=== PATIENT | male | born 1990 | race African-American/Black ===

== ENCOUNTER 2017-11-23 23:37 | Inpatient (IN) | payer OTHER ==
--- NOTE | 2017-11-24 02:53 | PDOC ---
History of Present Illness - General Chief Complaint: Pain Stated Complaint: ABD PAIN Time Seen by Provider: 11/24/17 02:11 History Source: Patient Exam Limitations: No Limitations - History of Present Illness Travel History: No Initial Comments: 11/24/17 03:12 Best Contact: Pmhx: Hypertension, CRF dialysis: Thursday/Thursday/Thursday, last dialysis 2017 Pshx:N/A Allergies: NKDA 27-year-old male presents to the emergency department complaining of initial 6/ 10 periumbilical abdominal discomfort since approximately 2330 hrs. last night which migrated to right lower quadrant abdominal discomfort radiating to the right flank with nausea but no vomiting. Patient denies fever, chills, chest pain, shortness of breath, urinary symptoms: Frequency/urgency/hesitancy, hematuria. There are no alleviating factors but the pain is exacerbated on touch. Patient denies history of similar symptoms. Pt denies any trauma/fall. Past History - Past Medical History Allergies/Adverse Reactions: Allergies Allergy/AdvReac Type Severity Reaction Status Date / Time No Known Allergies Allergy Verified 11/24/17 00:00 Home Medications: Ambulatory Orders Labetalol HCl [Normodyne -] 100 mg PO BID 11/24/17 - Suicide/Smoking/Psychosocial Hx Smoking History: Never smoked Have you smoked in the past 12 months: No Information on smoking cessation initiated: No Hx Alcohol Use: No Drug/Substance Use Hx: No Review of Systems - Review of Systems Able to Perform ROS?: Yes Comments:: 11/24/17 03:11 CONSTITUTIONAL: Absent: fever, chills, diaphoresis, generalized weakness, malaise, loss of appetite HEENT: Absent: rhinorrhea, nasal congestion, throat pain, throat swelling, difficulty swallowing, mouth swelling, ear pain, eye pain, visual Changes CARDIOVASCULAR: Absent: chest pain, loss of consciousness, palpitations, irregular heart rate, peripheral edema RESPIRATORY: Absent: cough, shortness of breath, dyspnea with exertion, orthopnea, wheezing, stridor, hemoptysis GASTROINTESTINAL: RLQ pain radiating to right flank Absent: abdominal distension, nausea, vomiting, diarrhea, constipation, melena , hematochezia GENITOURINARY: Absent: dysuria, frequency, urgency, hesitancy, hematuria, flank pain, genital pain MUSCULOSKELETAL: Absent: myalgia, arthralgia, joint swelling SKIN: Absent: rash, itching, pallor HEMATOLOGIC/IMMUNOLOGIC: Absent: easy bleeding, easy bruising, lymphadenopathy, frequent infections ENDOCRINE: Absent: unexplained weight gain, unexplained weight loss, heat intolerance, cold intolerance NEUROLOGIC: Absent: headache, focal weakness or paresthesias, dizziness, unsteady gait, seizure, mental status changes, bladder or bowel incontinence PSYCHIATRIC: Absent: anxiety, depression, suicidal or homicidal ideation, hallucinations. Is the patient limited Malaysian proficient: No *Physical Exam - Vital Signs Last Vital Signs Temp Pulse Resp BP Pulse Ox 97.8 F 91 H 18 145/90 97 11/23/17 23:56 11/23/17 23:56 11/23/17 23:56 11/23/17 23:56 11/23/17 23:56 - Physical Exam Comments: 11/24/17 03:11 GENERAL: Well developed, well nourished. Awake and alert. No acute distress. HEENT: Normocephalic, atraumatic. PERRLA, EOMI. No conjunctival pallor. Sclera are non- icteric. Moist mucous membranes. Oropharynx is clear. NECK: Supple. Full ROM. No JVD. Carotid pulses 2+ and symmetric, without bruits. No thyromegaly. No lymphadenopathy. CARDIOVASCULAR: Regular rate and rhythm. No murmurs, rubs, or gallops. Distal pulses are 2+ and symmetric. PULMONARY: No evidence of respiratory distress. Lungs clear to auscultation bilaterally. No wheezing, rales or rhonchi. ABDOMINAL: +RLQ pain Soft. Non-distended. No rebound or guarding. No organomegaly. Normoactive bowel sounds. MUSCULOSKELETAL Normal range of motion at all joints. No bony deformities or tenderness. No CVA tenderness. EXTREMITIES: No cyanosis. No clubbing. No edema. No calf tenderness. SKIN: Warm and dry. Normal capillary refill. No rashes. No jaundice. NEUROLOGICAL: Alert, awake, appropriate. Cranial nerves 2-12 intact. No deficits to light touch and temperature in face, upper extremities and lower extremities. No motor deficits in the in face, upper extremities and lower extremities. Normoreflexic in the upper and lower extremities. Normal speech. Toes are down- going bilaterally. Gait is normal without ataxia. PSYCHIATRIC: Cooperative. Good eye contact. Appropriate mood and affect. ED Treatment Course - LABORATORY CBC & Chemistry Diagram: 11/24/17 03:00 11/24/17 03:00 - RADIOLOGY Radiograph Interpretation: 11/24/17 04:[address] without contrast Impression: Right renal soap capsular hematoma and retroperitoneal hematoma Right nephrolithiasis Complex cystic mass in the left kidney There is a right subcapsular renal hematoma and there is stranding in the perinephric fat as well as the anterior and posterior perinephric spaces. There is a 3 mm stone in the left upper pole calyx there is a 2.5 cm ring calcification to the left kidney Progress Note - Progress Note Progress Note: Called surgery functional tester [id number]: Spoke to Dr. Amaro/Hosptialist Will admit after Surgery consult Signed out to Dr. Alexis *DC/Admit/Observation/Transfer Diagnosis at time of Disposition: Renal stone, Retroperitoneal hematoma - Referrals - Patient Instructions - Post Discharge Activity
[2017-11-24] MEDS ORDERED: SODIUM CHLORIDE 1,000 ML IV STA (02:54)
[2017-11-24] MEDS ORDERED: morphine CARPU-JECT 2 MG/1 ML DISP.SYRIN IVPUSH ONE ×2 (03:10→05:20)
[2017-11-24] MEDS ORDERED: MORPHINE SULFATE 10 MG/1 ML *VIAL ONE ×3 (03:13→14:29)
[2017-11-24 03:21] LABS: EOS % 1.7 % (0-4.5); HEMATOCRIT 33.3 % (35.4-49); HEMOGLOBIN 11.3 GM/dL (11.7-16.9); LYMPH % 5.9 % (8-40); MCH 28.6 pg (25.7-33.7); MEAN CELL VOLUME 84.1 fl (80-96); MEAN PLT VOLUME 8.4 fl (7.5-11.1); NEUT % 83.4 % (42.8-82.8); PLATELET COUNT 229 K/MM3 (134-434); RBC 3.95 M/mm3 (4.00-5.60); RDW 17.2 % (11.9-15.9); WHITE BLOOD COUNT 8.6 K/mm3 (4.0-10.0)
[2017-11-24 04:08] LABS: ALBUMIN 3.9 g/dl (3.4-5.0); ANION GAP 7 (8-16); BILIRUBIN,TOTAL 1.2 mg/dL (0.2-1.0); BLOOD UREA NITROGEN 45 mg/dL (7-18); CALCIUM 9.2 mg/dL (8.5-10.1); CHLORIDE 100 mmol/L (98-107); CO2 32 mmol/L (21-32); GLUCOSE,RANDOM 145 mg/dL (74-106); POTASSIUM 4.4 mmol/L (3.5-5.1); SGOT/AST 21 U/L (15-37); SODIUM 139 mmol/L (136-145); TOT PROT 8.4 g/dl (6.4-8.2)
[2017-11-24 04:09] LABS: CREATININE 10.4 mg/dL (0.7-1.3)
[2017-11-24 04:20] LABS: ALK PHOS 53 U/L (45-117); SGPT/ALT 24 U/L (12-78)
[2017-11-24 06:10] LABS: INR 1.11 (0.82-1.09); PROTHROMBIN TIME (PATIENT) 12.5 SEC (9.98-11.88)
--- NOTE | 2017-11-24 07:20 | PDOC ---
*Physical Exam - Vital Signs Last Vital Signs Temp Pulse Resp BP Pulse Ox 97.8 F 91 H 18 145/90 97 11/23/17 23:56 11/23/17 23:56 11/23/17 23:56 11/23/17 23:56 11/23/17 23:56 ED Treatment Course - LABORATORY CBC & Chemistry Diagram: 11/24/17 03:00 11/24/17 03:00 - ADDITIONAL ORDERS Additional order review: Laboratory Results 11/24/17 11/24/17 11/24/17 05:46 05:46 03:00 PT with INR 12.50 H INR 1.11 Sodium 139 Potassium 4.4 Chloride 100 Carbon Dioxide 32 Anion Gap 7 L BUN 45 H Creatinine 10.4 H* Creat Clearance w eGFR 5.96 Random Glucose 145 H Calcium 9.2 Total Bilirubin 1.2 H AST 21 ALT 24 Alkaline Phosphatase 53 Total Protein 8.4 H Albumin 3.9 Blood Type A POSITIVE Antibody Screen Negative 11/24/17 03:00 RBC 3.95 L MCV 84.1 MCHC 34.0 RDW 17.2 H MPV 8.4 Neutrophils % 83.4 H Lymphocytes % 5.9 L Monocytes % 8.0 Eosinophils % 1.7 Basophils % 1.0 - Medications Given in the ED: ED Medications Discontinued Medications Generic Name Dose Route Start Last Admin Trade Name Freq PRN Reason Stop Dose Admin Sodium Chloride 1,000 mls @ 1,000 mls/hr 11/24/17 02:54 11/24/17 03:12 Normal Saline - IV 11/24/17 03:53 1,000 mls/hr ASDIR STA Administration Morphine Sulfate 2 mg 11/24/17 03:10 11/24/17 03:17 Morphine Injection - IVPUSH 11/24/17 03:11 2 mg ONCE ONE Administration Morphine Sulfate 2 mg 11/24/17 05:20 11/24/17 05:23 Morphine Injection - IVPUSH 11/24/17 05:21 2 mg ONCE ONE Administration Medical Decision Making - Medical Decision Making 11/24/17 07:[address] Figueredo around 6:30am who will review the chart and call back. 11/24/17 07:19 Patient signed out to Dr. Box *DC/Admit/Observation/Transfer Diagnosis at time of Disposition: Renal stone, Retroperitoneal hematoma - Referrals - Patient Instructions - Post Discharge Activity
--- NOTE | 2017-11-24 08:26 | PDOC ---
*Physical Exam - Vital Signs Last Vital Signs Temp Pulse Resp BP Pulse Ox 97.8 F 91 H 18 145/90 97 11/23/17 23:56 11/23/17 23:56 11/23/17 23:56 11/23/17 23:56 11/23/17 23:56 - Physical Exam Comments: 11/24/17 08:21 General Appearance: Nourished. In Mild Apparent Distress HEENT: No Pharyngeal Erythema, Tonsillar Exudate, Tonsillar Erythema Neck: No Cervical Lymphadenopathy Respiratory/Chest: Lungs Clear, Normal Breath Sounds. No Crackles, Rales, Rhonchi, Wheezing Cardiovascular: Regular Rhythm, Regular Rate. No Murmur, Gallops, Rubs Gastrointestinal/Abdominal: Normal Bowel Sounds, Soft. Mild R lower quadrant tenderness to palpation. No Guarding, Rebound, Musculoskeletal: R CVA Tenderness Extremity: Normal Capillary Refill Integumentary: Normal Color, Dry, Warm Neurologic: Fully Oriented, Alert, Normal Mood/Affect, Normal Response, ED Treatment Course - LABORATORY CBC & Chemistry Diagram: 11/24/17 03:00 11/24/17 03:00 - ADDITIONAL ORDERS Additional order review: Laboratory Results 11/24/17 11/24/17 11/24/17 05:46 05:46 03:00 PT with INR 12.50 H INR 1.11 Sodium 139 Potassium 4.4 Chloride 100 Carbon Dioxide 32 Anion Gap 7 L BUN 45 H Creatinine 10.4 H* Creat Clearance w eGFR 5.96 Random Glucose 145 H Calcium 9.2 Total Bilirubin 1.2 H AST 21 ALT 24 Alkaline Phosphatase 53 Total Protein 8.4 H Albumin 3.9 Blood Type A POSITIVE Antibody Screen Negative 11/24/17 03:00 RBC 3.95 L MCV 84.1 MCHC 34.0 RDW 17.2 H MPV 8.4 Neutrophils % 83.4 H Lymphocytes % 5.9 L Monocytes % 8.0 Eosinophils % 1.7 Basophils % 1.0 - Medications Given in the ED: ED Medications Discontinued Medications Generic Name Dose Route Start Last Admin Trade Name Freq PRN Reason Stop Dose Admin Sodium Chloride 1,000 mls @ 1,000 mls/hr 11/24/17 02:54 11/24/17 03:12 Normal Saline - IV 11/24/17 03:53 1,000 mls/hr ASDIR STA Administration Morphine Sulfate 2 mg 11/24/17 03:10 04/10/18 03:17 Morphine Injection - IVPUSH 11/24/17 03:11 2 mg ONCE ONE Administration Morphine Sulfate 2 mg 11/24/17 05:20 11/24/17 05:23 Morphine Injection - IVPUSH 11/24/17 05:21 2 mg ONCE ONE Administration Progress Note - Progress Note Progress Note: The patient is a 27 year old male on dialysis M/W/F who presents for evaluation of acute onset abdominal pain found to have a right renal subcapsular hematoma and retroperitoneal hematoma on CT scan. Surgery is aware. Patient is pending Surgery Eval. Medical Decision Making - Medical Decision Making 11/24/17 08:26 We discussed the case with Dr. Figueredo with surgery who agrees with admitting the patient although no surgical intervention at this time. We discussed the case with the hospitalist team who accepted the patient for admission. *DC/Admit/Observation/Transfer Diagnosis at time of Disposition: Renal stone, Retroperitoneal hematoma - Discharge Dispostion Condition at time of disposition: Stable Admit: Yes - Referrals - Patient Instructions - Post Discharge Activity
--- NOTE | 2017-11-24 08:30 | CONSULT ---
Consult Consult Specialty:: Surgery Reason for Consultation:: Retroperitoneal hematoma - History of Present Illness Chief Complaint: Abdominal /back pain History of Present Illness: 27 male presents with abdominal/back pain Sudden onset Mild nausea No vomiting Denies fevers Denies recent trauma, anticoagulant use or use of any blood thinners Right renal subcapsular hematoma and retroperitoneal hematoma on CT H/H Cr 10 - History Source History Provided By: Patient Limitations to Obtaining History: No Limitations - Alcohol/Substance Use Hx Alcohol Use: No - Smoking History Smoking history: Never smoked Have you smoked in the past 12 months: No Home Medications - Allergies Allergies/Adverse Reactions: Allergies Allergy/AdvReac Type Severity Reaction Status Date / Time No Known Allergies Allergy Verified 11/24/17 00:00 - Home Medications Home Medications: Ambulatory Orders Labetalol HCl [Normodyne -] 100 mg PO BID 11/24/17 Family Disease History - Family Disease History Family History: Denies Review of Systems - Review of Systems Constitutional: denies: Fever HENT: reports: No Symptoms Neck: reports: No Symptoms Respiratory: denies: Cough Gastrointestinal: reports: Abdominal Pain, Vomiting Genitourinary: reports: Flank Pain Neurological: denies: Change in LOC Pain Intensity: 5 Physical Exam Vital Signs: Vital Signs Temperature 97.8 F 11/23/17 23:56 Pulse Rate 91 H 11/23/17 23:56 Respiratory Rate 18 11/23/17 23:56 Blood Pressure 145/90 11/23/17 23:56 O2 Sat by Pulse Oximetry (%) 97 11/23/17 23:56 Eyes: Yes: WNL HENT: Yes: WNL Neck: Yes: Supple Cardiovascular: Yes: Regular Rate and Rhythm Respiratory: Yes: CTA Bilaterally Gastrointestinal: Yes: Soft, Abdomen, Obese, Tenderness (Right sided tenderness/ right flank tenderness). No: Tenderness, Rebound Renal/: Yes: CVA Tenderness - Right Neurological: Yes: Alert, Oriented Labs: CBC, BMP 11/24/17 03:00 11/24/17 03:00 Imaging - Results Cat Scan: Image Reviewed Problem List - Problems (1) Renal hematoma Code(s): S37.019A - MINOR CONTUSION OF UNSPECIFIED KIDNEY, INITIAL ENCOUNTER Qualifiers: Laterality: right (2) Retroperitoneal hematoma Code(s): K66.1 - HEMOPERITONEUM Assessment/Plan Right renal hematoma and retroperitoneal hematoma Hemodynamically stable Hemoglobin 11 Hematocrit 33 Hemoglobin/Hematocrit every 4 hours Hold all blood thinners/anticoagulants Urology consult for renal hematoma Interventional radiology consult for possible embolization if worsens
[2017-11-24] MEDS ORDERED: morphine SULFATE 4 MG/ML VIAL ONE (09:40)
[2017-11-24] MEDS ORDERED: LABETALOL HCL 100 MG TABLET (FP) ONE (09:41)
[2017-11-24] MEDS: LABETALOL HCL 100 MG TABLET (FP) PO SCH ×3 (09:50→22:33)
[2017-11-24] MEDS: morphine SULFATE 4 MG/ML VIAL IVPUSH PRN ×3 (09:51→18:23)
[2017-11-24 10:22] LABS: BASO % 0.6 % (0-2.0); EOS % 0.3 % (0-4.5); HEMATOCRIT 29.5 % (35.4-49); HEMOGLOBIN 9.8 GM/dL (11.7-16.9); MCH 28.2 pg (25.7-33.7); MCHC 33.2 g/dl (32.0-35.9); MEAN PLT VOLUME 8.9 fl (7.5-11.1); MONO % 7.5 % (3.8-10.2); NEUT % 86.6 % (42.8-82.8); PLATELET COUNT 243 K/MM3 (134-434); RBC 3.47 M/mm3 (4.00-5.60); RDW 17.1 % (11.9-15.9); WHITE BLOOD COUNT 10.1 K/mm3 (4.0-10.0)
--- NOTE | 2017-11-24 11:05 | HP ---
CHIEF COMPLAINT: right flank pain PCP: none HISTORY OF PRESENT ILLNESS: This is a 27 year old male with PMHx of ESRD (on HD at [facility] M,W,F), HTN, who presented to the ED with right flank pain radiating around his right side to his umbilical area, nausea, one episode of vomiting. The patient states the pain began last night and is sharp in nature. He denies any trauma, falls. He denies any fever, chills, chest pain, shortness of breath. ER course was notable for: (1) CT/spiral renal stone: Hyperdense fluid and inflammatory changes throughout the right perinephric space consistent with acute hemorrhage. There may be intrarenal hemorrhage present as well. 3mm nonobstructing right renal calculus. Mildly atrophic left kidney with calcified lower pole mass and mild dilatation of the upper collecting system. No additional evidence of acute pathology within the abdomen or pelvis (2) Temp 97.8, pulse 91, BP 145/90, resp 18, O2 97% on RA (3) Hgb 11.3-> 9.8 (4) Cr 10.4 Recent Travel: denies PAST MEDICAL HISTORY: as above PAST SURGICAL HISTORY: denies Social History: Smoking: denies Alcohol: denies Drugs: denies Family History: Allergies No Known Allergies Allergy (Verified 11/24/17 00:00) HOME MEDICATIONS: Home Medications Medication Instructions Recorded Labetalol HCl [Normodyne -] 100 mg PO BID 11/24/17 REVIEW OF SYSTEMS CONSTITUTIONAL: Absent: fever, chills, diaphoresis, generalized weakness, malaise, loss of appetite, weight change HEENT: Absent: rhinorrhea, nasal congestion, throat pain, throat swelling, difficulty swallowing, mouth swelling, ear pain, eye pain, visual changes CARDIOVASCULAR: Absent: chest pain, syncope, palpitations, irregular heart rate, lightheadedness , peripheral edema RESPIRATORY: Absent: cough, shortness of breath, dyspnea with exertion, orthopnea, wheezing, stridor, hemoptysis GASTROINTESTINAL: Right flank pain radiating around to the umbilicus with nausea and one episode of vomiting. Absent: abdominal distension, diarrhea, constipation, melena, hematochezia GENITOURINARY: Right flank pain Absent: genital pain MUSCULOSKELETAL: Absent: myalgia, arthralgia, joint swelling, back pain, neck pain SKIN: Absent: rash, itching, pallor HEMATOLOGIC/IMMUNOLOGIC: Absent: easy bleeding, easy bruising, lymphadenopathy, frequent infections ENDOCRINE: Absent: unexplained weight gain, unexplained weight loss, heat intolerance, cold intolerance NEUROLOGIC: Absent: headache, focal weakness or paresthesias, dizziness, unsteady gait, seizure, mental status changes, bladder or bowel incontinence PSYCHIATRIC: Absent: anxiety, depression, suicidal or homicidal ideation, hallucinations. PHYSICAL EXAMINATION Vital Signs - 24 hr 11/23/17 11/24/17 23:56 10:13 Temperature 97.8 F Pulse Rate 91 H 95 H Respiratory 18 Rate Blood Pressure 145/90 189/119 O2 Sat by Pulse 97 Oximetry (%) GENERAL: Awake, alert, and fully oriented, in no acute distress. HEAD: Normal with no signs of trauma. EYES: Pupils equal, round and reactive to light, extraocular movements intact, sclera anicteric, conjunctiva clear. No lid lag. EARS, NOSE, THROAT: Ears normal, nares patent, oropharynx clear without exudates. Moist mucous membranes. NECK: Normal range of motion, supple without lymphadenopathy, JVD, or masses. LUNGS: Breath sounds equal, clear to auscultation bilaterally. No wheezes, and no crackles. No accessory muscle use. HEART: Regular rate and rhythm, normal S1 and S2 without murmur, rub or gallop. ABDOMEN: Soft, nontender, not distended, normoactive bowel sounds, no guarding, no rebound, no masses. No hepatomegaly or splenomegaly. MUSCULOSKELETAL: Normal range of motion at all joints. No bony deformities or tenderness. UPPER EXTREMITIES: Left arm AV fistula, + thrill, + bruit. 2+ pulses, warm, well -perfused. No cyanosis. No clubbing. No peripheral edema. LOWER EXTREMITIES: 2+ pulses, warm, well-perfused. No calf tenderness. No peripheral edema. NEUROLOGICAL: Cranial nerves II-XII intact. Normal speech. Gait not observed PSYCHIATRIC: Cooperative. Good eye contact. Appropriate mood and affect. SKIN: Warm, dry, normal turgor, no rashes or lesions noted, normal capillary refill. Laboratory Results - last 24 hr 11/24/17 11/24/17 11/24/17 03:00 03:00 05:46 WBC 8.6 RBC 3.95 L Hgb 11.3 L Hct 33.3 L MCV 84.1 MCH 28.6 MCHC 34.0 RDW 17.2 H Plt Count 229 MPV 8.4 Neutrophils % 83.4 H Lymphocytes % 5.9 L Monocytes % 8.0 Eosinophils % 1.7 Basophils % 1.0 PT with INR 12.50 H INR 1.11 Sodium 139 Potassium 4.4 Chloride 100 Carbon Dioxide 32 Anion Gap 7 L BUN 45 H Creatinine 10.4 H* Creat Clearance w eGFR 5.96 Random Glucose 145 H Calcium 9.2 Total Bilirubin 1.2 H AST 21 ALT 24 Alkaline Phosphatase 53 Total Protein 8.4 H Albumin 3.9 Blood Type Antibody Screen 11/24/17 11/24/17 05:46 09:41 WBC 10.1 H RBC 3.47 L Hgb 9.8 L D Hct 29.5 L MCV 85.0 MCH 28.2 MCHC 33.2 RDW 17.1 H Plt Count 243 MPV 8.9 Neutrophils % 86.6 H Lymphocytes % 5.0 L Monocytes % 7.5 Eosinophils % 0.3 D Basophils % 0.6 PT with INR INR Sodium Potassium Chloride Carbon Dioxide Anion Gap BUN Creatinine Creat Clearance w eGFR Random Glucose Calcium Total Bilirubin AST ALT Alkaline Phosphatase Total Protein Albumin Blood Type A POSITIVE Antibody Screen Negative Assessment: This is a 27 year old male with PMHx of ESRD (on HD at [facility] M ,,), HTN, who presented to the ED with right flank pain radiating around his right side to his umbilical area, nausea, one episode of vomiting. Plan: 1) Acute right perinephric hemorrhage - Possible intrarenal hemorrhage as well - Discussed with Dr. Franklin; for CTA renal arteries, arterial and venous phase - Dr. Franklin to evaluate the patient, discussed CT results, he is recommending IR procedure. He will speak to Dr. Franklin directly - Dr. Nicole accepted the patient for ICU care - Discussed with Dr. Guerra - H/H trending down, continue q4h CBC, transfuse if Hgb <8 - Pain management - Appreciate surgery consult: discussed with Dr. Figueredo, no surgical intervention at this time 2) ESRD - HD M,W, - F/u nephrology consult 3) F/E/N: - NPO 4) Prophylaxis: - Hold all chemical DVT prophylaxis 2/2 acute bleed 5) Dispo: - Requires ICU care CODE STATUS: FULL CODE Visit type - Emergency Visit Emergency Visit: Yes ED Registration Date: 11/24/17 Care time: The patient presented to the Emergency Department on the above date and was hospitalized for further evaluation of their emergent condition. - New Patient This patient is new to me today: Yes Date on this admission: 11/24/17 - Critical Care Critical Care patient: Yes Total Critical Care Time (in minutes): 65 Critical Care Statement: The care of this patient involved high complexity decision making to prevent further life threatening deterioration of the patient 's condition and/or to evaluate & treat vital organ system(s) failure or risk of failure. Hospitalist Screening - Colonoscopy Questionnaire Colonoscopy Questionnaire: Colonoscopy Questionnaire - Patient: 50 - 75 years old and never had a screening colonoscopy: No History of colon or rectal polyps, or CA: Unknown History of IBD, Crohn's disease or UC: Unknown History of abdominal radiation therapy as a child: Unknown - Relative: 1 with colon or rectal CA, or polyps at age 60 or younger: Unknown Colon or rectal CA diagnosed at age 45 or younger: Unknown Multiple relatives with colon or rectal CA: Unknown - Outcome: Screening Result: Negative Screen
[2017-11-24 12:50] LABS: BASO % 0.7 % (0-2.0); EOS % 0.1 % (0-4.5); HEMATOCRIT 27.8 % (35.4-49); HEMOGLOBIN 9.4 GM/dL (11.7-16.9); MCH 28.5 pg (25.7-33.7); MCHC 33.7 g/dl (32.0-35.9); MEAN CELL VOLUME 84.7 fl (80-96); MEAN PLT VOLUME 8.5 fl (7.5-11.1); MONO % 9.6 % (3.8-10.2); NEUT % 85.6 % (42.8-82.8); PLATELET COUNT 210 K/MM3 (134-434); RBC 3.29 M/mm3 (4.00-5.60); RDW 17.5 % (11.9-15.9); WHITE BLOOD COUNT 10.5 K/mm3 (4.0-10.0)
[2017-11-24 13:28] LABS: ALBUMIN 3.7 g/dl (3.4-5.0); ANION GAP 14 (8-16); BLOOD UREA NITROGEN 52 mg/dL (7-18); CALCIUM 9.2 mg/dL (8.5-10.1); CHLORIDE 98 mmol/L (98-107); CO2 26 mmol/L (21-32); GLUCOSE,RANDOM 118 mg/dL (74-106); POTASSIUM 5.4 mmol/L (3.5-5.1); SGOT/AST 16 U/L (15-37); SGPT/ALT 22 U/L (12-78); SODIUM 138 mmol/L (136-145)
[2017-11-24 13:35] LABS: ALK PHOS 49 U/L (45-117); BILIRUBIN,TOTAL 1.4 mg/dL (0.2-1.0); TOT PROT 7.9 g/dl (6.4-8.2)
[2017-11-24] MEDS ORDERED: ONDANSETRON 4 MG/2 ML VIAL IVPUSH ONE (13:37)
[2017-11-24 13:47] LABS: CREATININE 11.4 mg/dL (0.7-1.3)
--- NOTE | 2017-11-24 14:30 | EKG ---
Test Reason : Blood Pressure : / mmHG Vent. Rate : 102 BPM Atrial Rate : 102 BPM P-R Int : 188 ms QRS Dur : 092 ms QT Int : 356 ms P-R-T Axes : 035 -37 079 degrees QTc Int : 463 ms SINUS TACHYCARDIA POSSIBLE LEFT ATRIAL ENLARGEMENT LEFT AXIS DEVIATION INCOMPLETE RIGHT BUNDLE BRANCH BLOCK LEFT VENTRICULAR HYPERTROPHY ABNORMAL ECG NO PREVIOUS ECGS AVAILABLE Confirmed by MD Alarcon Daniel ([id number]) on 11/24/2017 2:30:07 PM Referred By: Confirmed By:Anthony Alarcon MD
[2017-11-24 15:22] VITALS: BMI 39.6
--- NOTE | 2017-11-24 16:00 | CONSULT ---
Consult Consult Specialty:: Nephrology Reason for Consultation:: ESRD - History of Present Illness Chief Complaint: abdominal and back pain History of Present Illness: Pt is a 27 year old male with pmhx of ESRD and HTN who presents to the ER with abdominal discomfort and pain. He feels the pain radiate to his right flank and back. He has been on HD for over 5 years. He says that he did have a kidney biopsy when starting HD however a cause of the renal failure was not identified. He was taken for st scan and was found to have a right perinephric hemmorhage. He is now being admitted to the ICU. He was last dialyuzed yesterday. - History Source History Provided By: Patient, Medical Record - Past Medical History Cardio/Vascular: Yes: HTN Renal/: Yes: Renal Failure, Hemodialysis - Past Surgical History Past Surgical History: Yes: AV Fistula/Graft - Alcohol/Substance Use Hx Alcohol Use: No - Smoking History Smoking history: Never smoked Have you smoked in the past 12 months: No Home Medications - Allergies Allergies/Adverse Reactions: Allergies Allergy/AdvReac Type Severity Reaction Status Date / Time No Known Allergies Allergy Verified 11/24/17 00:00 - Home Medications Home Medications: Ambulatory Orders Labetalol HCl [Normodyne -] 100 mg PO BID 11/24/17 Family Disease History - Family Disease History Family History: Denies Review of Systems - Review of Systems Constitutional: reports: Malaise Eyes: reports: No Symptoms HENT: reports: No Symptoms Neck: reports: No Symptoms Cardiovascular: reports: No Symptoms Respiratory: reports: No Symptoms Gastrointestinal: reports: Abdominal Pain Genitourinary: reports: Flank Pain Musculoskeletal: reports: No Symptoms Integumentary: reports: No Symptoms Neurological: reports: No Symptoms Endocrine: reports: No Symptoms Hematology/Lymphatic: reports: No Symptoms Psychiatric: reports: No Symptoms Physical Exam Vital Signs: Vital Signs Temperature 98.2 F 11/24/17 12:22 Pulse Rate 92 H 11/24/17 15:19 Respiratory Rate 18 11/24/17 15:19 Blood Pressure 186/118 11/24/17 15:19 O2 Sat by Pulse Oximetry (%) 100 11/24/17 15:14 Constitutional: Yes: Calm Eyes: Yes: Conjunctiva Clear HENT: Yes: Atraumatic Neck: Yes: Supple Cardiovascular: Yes: S1, S2 Respiratory: Yes: CTA Bilaterally Gastrointestinal: Yes: Soft, Abdomen, Obese Renal/: Yes: WNL Musculoskeletal: Yes: WNL Edema: No Neurological: Yes: Oriented Psychiatric: Yes: Oriented Labs: Laboratory Tests 11/24/17 03:00 Sodium 139 Potassium 4.4 Chloride 100 Carbon Dioxide 32 Anion Gap 7 L BUN 45 H Creatinine 10.4 H* Imaging - Results Cat Scan: Report Reviewed Problem List - Problems (1) ESRD (end stage renal disease) Code(s): N18.6 - END STAGE RENAL DISEASE (2) HTN (hypertension) Code(s): I10 - ESSENTIAL (PRIMARY) HYPERTENSION (3) Renal hematoma Code(s): S37.019A - MINOR CONTUSION OF UNSPECIFIED KIDNEY, INITIAL ENCOUNTER Qualifiers: Laterality: right (4) Retroperitoneal hematoma Code(s): K66.1 - HEMOPERITONEUM Assessment/Plan Current Medications Generic Name Dose Route Start Last Admin Trade Name Freq PRN Reason Stop Dose Admin Chlorhexidine Gluconate 1 applic 11/24/17 22:00 Hibiclens For Decolonization - TP HS PAMELA Labetalol HCl 100 mg 11/24/17 10:00 11/24/17 10:13 Normodyne - PO Not Given BID PAMELA Morphine Sulfate 2 mg 11/24/17 09:30 11/24/17 14:26 Morphine Sulfate IVPUSH 2 mg Q4H PRN Administration PAIN LEVEL 7 - 10 Mupirocin 1 applic 11/24/17 22:00 Bactroban Ointment (For Decolonization) - NS 11/29/17 21:59 BID PAMELA Impression 1. ESRD 2. HTN 3. right subcapsular perinephric hematoma 4. anemia acute 5. obesity Plan - called and discussed with urology and with IR. They recommend to continue monitoring the hg. Admit pt to ICU and monitor closely. - next scheduled HD is tomorrow - will give DDAVP - pt is also receiving platelets - will likely dialyze in am - called and discussed with ICU team - pain control - will need better BP control
[2017-11-24] MEDS ORDERED: DESMOPRESSIN ACETATE 4 MCG/ML AMP IVPB ONE (16:35)
--- NOTE | 2017-11-24 16:39 | PN ---
Teaching Attending Note Name of Resident: Alondra Hillman ATTENDING PHYSICIAN STATEMENT I saw and evaluated the patient. I reviewed the resident's note and discussed the case with the resident. I agree with the resident's findings and plan as documented. SUBJECTIVE: Pt seen and examined in the ICU. Briefly, 27yo male with h/o HTN, ESRD on HD via LUE AVF x 6 years who presents with RLQ pain radiating to the back. Found to have a right subcapsular hematoma extending into the retroperitoneal space. 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 No fevers or chills. No reported trauma. States blood pressure is normally controlled with SBP 140s. Compliant with HD sessions (MWF.) Medical care is at [facility]. OBJECTIVE: Last Vital Signs Temp Pulse Resp BP Pulse Ox 98.2 F 104 H 18 187/102 100 11/24/17 12:22 11/24/17 16:00 11/24/17 16:00 11/24/17 16:00 11/24/17 15:14 Intake & Output 11/21/17 11/22/17 11/23/17 11/24/17 23:59 23:59 23:59 23:59 Weight 81.647 kg 140 kg Gen: uncomfortable with movements Heart: tachycardic, regular Lung: poor effort due to pain Abd: soft, TTP RLQ, flank Ext: no edema, LUE fistula CBC, BMP 11/24/17 12:39 11/24/17 12:39 INR, PTT INR 1.11 (0.82-1.09) 11/24/17 05:46 Active Medications Chlorhexidine Gluconate (Hibiclens For Decolonization -) 1 applic TP HS PAMELA Labetalol HCl (Normodyne -) 100 mg PO BID PAMELA Last Admin: 11/24/17 10:13 Dose: Not Given Morphine Sulfate (Morphine Sulfate) 2 mg IVPUSH Q4H PRN PRN Reason: PAIN LEVEL 7 - 10 Last Admin: 11/24/17 14:26 Dose: 2 mg Mupirocin (Bactroban Ointment (For Decolonization) -) 1 applic NS BID PAMELA Stop: 11/29/17 21:59 ASSESSMENT AND PLAN: Renal Hemorrhage Hypertensive Urgency ESRD on HD Hyperkalemia - pain control - BP control with labetalol IVP and PO - transfuse platelets - dDAVP - HD per renal - monitor lytes - urology evaluation - will likely need left sided coil embolization as well when stable - mechanical DVT prophylaxis - ICU monitoring critical care time spent in reviewing chart, evaluating patient and formulating plan 35 min
[2017-11-24] MEDS ORDERED: SODIUM CHLORIDE IVPB ONE (17:00)
[2017-11-24] MEDS ORDERED: DESMOPRESSIN ACETATE IVPB ONE (17:00)
[2017-11-24] MEDS ORDERED: SODIUM POLYSTYRENE SULFONATE 15 GM/60 ML BOTTLE PO ONE (17:26)
--- NOTE | 2017-11-24 17:37 | CONSULT ---
Consultation: HISTORY OF PRESENT ILLNESS: 27M with PMH of htn and ESRD (HD MWF x 6 yrs), presents with sudden onset sharp Right flank pain radiating from RLQ to back. Pt was sitting eating dinner at his sister's place when pain started. Pt normally receives medical care at [facility], but came to [facility] 2/[address] sister's place. Pain is exacerbated with movement/position change, and controlled with Morphine. Found on CTA to have Right subcapsular hematoma extending into the retroperitoneal space. Pt reports making urine twice daily, and no change in UOP. Pt denies trauma, fever, chills, chest pain, sob. REVIEW OF SYSTEMS: CONSTITUTIONAL: Absent: fever, chills, diaphoresis, generalized weakness HEENT: Absent: rhinorrhea, nasal congestion, throat pain, ear pain, eye pain, visual changes CARDIOVASCULAR: Absent: chest pain, syncope, palpitations, irregular heart rate RESPIRATORY: Absent: cough, shortness of breath, wheezing, stridor, hemoptysis GASTROINTESTINAL: RLQ pain Absent: abdominal distension, nausea, vomiting, diarrhea, constipation GENITOURINARY: Right flank pain Absent: dysuria MUSCULOSKELETAL: Absent: myalgia, arthralgia, joint swelling SKIN: Absent: rash, itching, pallor HEMATOLOGIC/IMMUNOLOGIC: Absent: easy bleeding, easy bruising, lymphadenopathy ENDOCRINE: Absent: unexplained weight gain, unexplained weight loss, heat intolerance, cold intolerance NEUROLOGIC: Absent: headache, focal weakness or paresthesias, dizziness PSYCHIATRIC: Absent: anxiety, depression, suicidal or homicidal ideation, hallucinations. PHYSICAL EXAMINATION Vital Signs - 24 hr 11/23/17 11/24/17 11/24/17 23:56 10:13 11:15 Temperature 97.8 F Pulse Rate 91 H 95 H 94 H Pulse Rate [ Apical] Respiratory 18 Rate Blood Pressure 145/90 189/119 175/98 Blood Pressure [Right Arm] O2 Sat by Pulse 97 Oximetry (%) 11/24/17 11/24/17 11/24/17 12:22 15:08 15:14 Temperature 98.2 F Pulse Rate 104 H Pulse Rate [ 101 H Apical] Respiratory 20 18 Rate Blood Pressure 186/118 Blood Pressure 174/104 [Right Arm] O2 Sat by Pulse 98 100 Oximetry (%) 11/24/17 11/24/17 15:19 16:00 Temperature Pulse Rate 92 H 104 H Pulse Rate [ Apical] Respiratory 18 18 Rate Blood Pressure 186/118 187/102 Blood Pressure [Right Arm] O2 Sat by Pulse Oximetry (%) GENERAL: Awake, alert, and fully oriented, in no acute distress. HEAD: Normal with no signs of trauma. EYES: Extraocular movements intact, sclera anicteric, conjunctiva clear. No lid lag. NECK: Normal range of motion, supple without lymphadenopathy, JVD, or masses. LUNGS: Poor inspiratory effort 2/2 pain. No accessory muscle use. HEART: Regular rate and rhythm, normal +S1/S2. ABDOMEN: Tender to palpation of RLQ and Right flank, soft, not distended. UPPER EXTREMITIES: Left UE fistula LOWER EXTREMITIES: Warm, well-perfused. No calf tenderness. No peripheral edema. NEUROLOGICAL: Cranial nerves II-XII grossly intact. Normal speech. PSYCHIATRIC: Cooperative. Good eye contact. Appropriate mood and affect. SKIN: Warm, dry, normal turgor, no rashes or lesions noted. Laboratory Results - last 24 hr 11/24/17 11/24/17 11/24/17 03:00 03:00 05:46 WBC 8.6 RBC 3.95 L Hgb 11.3 L Hct 33.3 L MCV 84.1 MCH 28.6 MCHC 34.0 RDW 17.2 H Plt Count 229 MPV 8.4 Neutrophils % 83.4 H Lymphocytes % 5.9 L Monocytes % 8.0 Eosinophils % 1.7 Basophils % 1.0 PT with INR 12.50 H INR 1.11 Sodium 139 Potassium 4.4 Chloride 100 Carbon Dioxide 32 Anion Gap 7 L BUN 45 H Creatinine 10.4 H* Creat Clearance w eGFR 5.96 Random Glucose 145 H Calcium 9.2 Total Bilirubin 1.2 H AST 21 ALT 24 Alkaline Phosphatase 53 Total Protein 8.4 H Albumin 3.9 Blood Type Antibody Screen 11/24/17 11/24/17 11/24/17 05:46 09:41 12:39 WBC 10.1 H 10.5 H RBC 3.47 L 3.29 L Hgb 9.8 L D 9.4 L Hct 29.5 L 27.8 L MCV 85.0 84.7 MCH 28.2 28.5 MCHC 33.2 33.7 RDW 17.1 H 17.5 H Plt Count 243 210 MPV 8.9 8.5 Neutrophils % 86.6 H 85.6 H Lymphocytes % 5.0 L 4.0 L Monocytes % 7.5 9.6 Eosinophils % 0.3 D 0.1 Basophils % 0.6 0.7 PT with INR INR Sodium Potassium Chloride Carbon Dioxide Anion Gap BUN Creatinine Creat Clearance w eGFR Random Glucose Calcium Total Bilirubin AST ALT Alkaline Phosphatase Total Protein Albumin Blood Type A POSITIVE Antibody Screen Negative 11/24/17 12:39 WBC RBC Hgb Hct MCV MCH MCHC RDW Plt Count MPV Neutrophils % Lymphocytes % Monocytes % Eosinophils % Basophils % PT with INR INR Sodium 138 Potassium 5.4 H D Chloride 98 Carbon Dioxide 26 Anion Gap 14 BUN 52 H Creatinine 11.4 H* Creat Clearance w eGFR 5.37 Random Glucose 118 H Calcium 9.2 Total Bilirubin 1.4 H AST 16 D ALT 22 Alkaline Phosphatase 49 Total Protein 7.9 Albumin 3.7 Blood Type Antibody Screen Active Medications Generic Name Dose Route Start Last Admin Trade Name Freq PRN Reason Stop Dose Admin Chlorhexidine Gluconate 1 applic 11/24/17 22:00 Hibiclens For Decolonization - TP HS [facility] Desmopressin Acetate 42 mcg 11/24/17 16:35 Ddavp Injection - IVPB 11/24/17 16:36 ONCE ONE Labetalol HCl 100 mg 11/24/17 10:00 11/24/17 10:13 Normodyne - PO Not Given BID [facility] Morphine Sulfate 2 mg 11/24/17 09:30 11/24/17 14:26 Morphine Sulfate IVPUSH 2 mg Q4H PRN Administration PAIN LEVEL 7 - 10 Mupirocin 1 applic 11/24/17 22:00 Bactroban Ointment (For Decolonization) - NS 11/29/17 21:59 BID [facility] IMAGIN11/24/17 CT Ab/Pel -> 1. Hyperdense fluid and inflammatory changes throughout the right perinephric space consistent with acute hemorrhage. There may be intrarenal hemorrhage present as well. 2. 3 mm nonobstructing right renal calculus. 3. Mildly atrophic left kidney with rim calcified lower pole mass and mild dilatation of the upper collecting system. 11/24/17 CTA -> 1. No central right renal artery aneurysm. Approximately 8.5 x 7.0 x 11.5 cm large RIGHT subcapsular perinephric hematoma compressing the right kidney with extracapsular extension of hemorrhage into the retroperitoneum has slightly increased since the CT performed earlier the same day (previously measured 7.8 x 6.3 x 11.0 cm in similar projections). Small blush of venous contrast along the inferior aspect of the right kidney is of indeterminant origin. 2. Approximately 2.3 x 2.2 cm peripherally calcified aneurysm in the left renal lower pole supplied by an accessory left renal artery. 3. Symmetrically atrophic kidneys with numerous cysts which could be the sequela of chronic dialysis. ASSESSMENT/PLAN: 27M with PMH of htn and ESRD (HD MWF x 6 yrs), presents with sudden onset sharp Right flank pain radiating from RLQ to back, admitted to ICU for renal hemorrhage. # acute Right renal hemorrhage - IR Consult for embolization/management - Urology recs appreciated: rec IR procedure. Dr. Franklin and Dr. Penn discussed case. - pain control with Morphine prn - 2 U platelets ordered - DDAVP 0.3mcg/kg ordered - monitor CBC - transfuse for Hgb < 8 - Surgery (Dr. Figueredo) recs appreciated: no surgical intervention at this time # hypertensive urgency - Labetalol 10mg IVpush now - continue home med of Labetalol # ESRD - Nephrology (Dr. Guerra) on board - HD scheduled for tomorrow per Dr. Guerra # FEN - Fluids: s/p 1 L NS bolus - Electrolytes: mild hyperkalemia noted, continue to monitor - Nutrition: npo for possible procedure, ice chips OK # Prophylaxis - DVT ppx with dina SCDs, hold chemoprophylaxis 2/2 hemorrhage Dispo: We will continue to follow the patient. Thank you for this consultative opportunity. Visit type - Emergency Visit Emergency Visit: Yes ED Registration Date: 11/24/17 Care time: The patient presented to the Emergency Department on the above date and was hospitalized for further evaluation of their emergent condition. - New Patient This patient is new to me today: Yes Date on this admission: 11/24/17 - Critical Care Critical Care patient: Yes Total Critical Care Time (in minutes): 40 Critical Care Statement: The care of this patient involved high complexity decision making to prevent further life threatening deterioration of the patient 's condition and/or to evaluate & treat vital organ system(s) failure or risk of failure.
[2017-11-24] MEDS ORDERED: LABETALOL HCL 5 MG/1 ML (100MG/20 ML VIAL) IVPUSH ONE (17:45)
[2017-11-24 18:17] LABS: BASO % 0.7 % (0-2.0); EOS % 0.4 % (0-4.5); HEMATOCRIT 26.5 % (35.4-49); HEMOGLOBIN 8.8 GM/dL (11.7-16.9); LYMPH % 8.3 % (8-40); MCHC 33.2 g/dl (32.0-35.9); MEAN CELL VOLUME 84.3 fl (80-96); MEAN PLT VOLUME 8.9 fl (7.5-11.1); MONO % 15.3 % (3.8-10.2); NEUT % 75.3 % (42.8-82.8); PLATELET COUNT 211 K/MM3 (134-434); RBC 3.14 M/mm3 (4.00-5.60); RDW 17.1 % (11.9-15.9); WHITE BLOOD COUNT 11.3 K/mm3 (4.0-10.0)
[2017-11-24] MEDS ORDERED: SODIUM POLYSTYRENE SULFONATE 15 GM/60 ML BOTTLE ONE (18:42)
[2017-11-24 19:07] LABS: ANION GAP 13 (8-16); BLOOD UREA NITROGEN 56 mg/dL (7-18); CALCIUM 8.9 mg/dL (8.5-10.1); CHLORIDE 98 mmol/L (98-107); CO2 27 mmol/L (21-32); GLUCOSE,RANDOM 105 mg/dL (74-106); POTASSIUM 5.5 mmol/L (3.5-5.1); SODIUM 138 mmol/L (136-145)
--- NOTE | 2017-11-24 21:19 | CON.GU ---
Consult Consult Specialty:: Urology Reason for Consultation:: Right iliana renal hematoma - History of Present Illness Chief Complaint: Severe right flank pain - History Source History Provided By: Patient Limitations to Obtaining History: No Limitations - Past Medical History Cardio/Vascular: Yes: HTN Renal/: Yes: Renal Failure, Hemodialysis - Past Surgical History Past Surgical History: Yes: AV Fistula/Graft, Kidney Transplant - Alcohol/Substance Use Hx Alcohol Use: No - Smoking History Smoking history: Never smoked Have you smoked in the past 12 months: No Home Medications - Allergies Allergies/Adverse Reactions: Allergies Allergy/AdvReac Type Severity Reaction Status Date / Time No Known Allergies Allergy Verified 11/24/17 00:00 - Home Medications Home Medications: Ambulatory Orders Labetalol HCl [Normodyne -] 100 mg PO BID 11/24/17 Physical Exam- Vital Signs: Vital Signs Temperature 99 F 11/24/17 18:47 Pulse Rate 102 H 11/24/17 18:47 Respiratory Rate 18 11/24/17 18:47 Blood Pressure 152/88 11/24/17 18:47 O2 Sat by Pulse Oximetry (%) 100 11/24/17 15:14 Labs: CBC, BMP 11/24/17 17:45 11/24/17 18:25 Assessment/Plan 27 year male , a dialysis pt. was seen in the emergency room around 11.30 am in bed 4 in the holding unit. He was c/o pain in the right flank since last night. He was seen in ER and had ct scan done. Ct Scan reviwed, showed iliana renal hematoma.Case reviewed with Dr. Groves for the possibility of embolisation of right renal artery. Dr. Groves ordered Ct angio and will decide after reviewing the results. Pt is very obese and may not be a surgical candidate for exploration. Will follow with Dr Groves.
[2017-11-24 22:00] LABS: BASO % 0.8 % (0-2.0); EOS % 1.1 % (0-4.5); HEMATOCRIT 24.1 % (35.4-49); HEMOGLOBIN 8.1 GM/dL (11.7-16.9); MCH 28.3 pg (25.7-33.7); MCHC 33.6 g/dl (32.0-35.9); MEAN CELL VOLUME 84.3 fl (80-96); MEAN PLT VOLUME 8.6 fl (7.5-11.1); NEUT % 71.1 % (42.8-82.8); PLATELET COUNT 252 K/MM3 (134-434); RBC 2.86 M/mm3 (4.00-5.60); RDW 16.9 % (11.9-15.9); WHITE BLOOD COUNT 12.3 K/mm3 (4.0-10.0)
[2017-11-24] MEDS ORDERED: MUPIROCIN 2% TOPICAL OINTMENT FOR DECOLONIZATION NS SCH (22:00)
[2017-11-24] MEDS ORDERED: CHLORHEXIDINE GLUCONATE 4% CLEANSER FOR DECOLONIZATION TP SCH (22:00)
--- NOTE | 2017-11-24 22:13 | PN ---
Progress Note (short form) - Note Progress Note: Renal Addendum/Follow Up Laboratory Tests 11/24/17 11/24/17 12:39 18:25 Potassium 5.4 H D 5.5 H Creatinine 12.0 H* Arranged for hemodialysis at bedside as pts potassium is rising. Pt also received IV contrast today and blood products. Will UF volume. Hopefully HD will help his platelet function as well in order to help stop the bleed. Discussed with IR and they will monitor his Hg and decide if any intervention will be done tomorrow. Will optimize pt tonight. Discussed with ICU team. Can transfuse as needed if his hg drops further overnight. Will follow closely. Problem List - Problems (1) ESRD (end stage renal disease) Code(s): N18.6 - END STAGE RENAL DISEASE (2) HTN (hypertension) Code(s): I10 - ESSENTIAL (PRIMARY) HYPERTENSION (3) Renal hematoma Code(s): S37.019A - MINOR CONTUSION OF UNSPECIFIED KIDNEY, INITIAL ENCOUNTER Qualifiers: Laterality: right (4) Retroperitoneal hematoma Code(s): K66.1 - HEMOPERITONEUM
[2017-11-24] MEDS: MUPIROCIN 2% TOPICAL OINTMENT FOR DECOLONIZATION NS SCH (22:33)
[2017-11-24] MEDS: CHLORHEXIDINE GLUCONATE 4% CLEANSER FOR DECOLONIZATION TP SCH (22:33)
[2017-11-25 01:42] LABS: BASO % 0.9 % (0-2.0); EOS % 1.8 % (0-4.5); HEMATOCRIT 25.1 % (35.4-49); HEMOGLOBIN 8.5 GM/dL (11.7-16.9); LYMPH % 10.9 % (8-40); MCH 28.5 pg (25.7-33.7); MCHC 33.8 g/dl (32.0-35.9); MEAN CELL VOLUME 84.2 fl (80-96); MEAN PLT VOLUME 8.9 fl (7.5-11.1); MONO % 18.6 % (3.8-10.2); NEUT % 67.8 % (42.8-82.8); PLATELET COUNT 207 K/MM3 (134-434); RBC 2.98 M/mm3 (4.00-5.60); RDW 16.7 % (11.9-15.9); WHITE BLOOD COUNT 10.5 K/mm3 (4.0-10.0)
[2017-11-25] MEDS: morphine SULFATE 4 MG/ML VIAL IVPUSH PRN ×3 (03:04→20:46)
--- NOTE | 2017-11-25 05:46 | HOSP ---
Subjective - Review of Symptoms Events since last encounter: called by rn to evaluate patient for "testicular swelling" Subjective: Pt reports that he notices his left side of his scrotum was larger than his right when he got up to go to the bathroom just before 3am. He denies pain to the area and states that at no point did he have pain to the area. He reports that his flank pain is improved overall but still present with movement. Physical Examination Vital Signs: Vital Signs Temperature 99 F 11/25/17 00:00 Pulse Rate 103 H 11/25/17 02:00 Respiratory Rate 26 H 11/25/17 02:00 Blood Pressure 154/97 11/25/17 02:00 O2 Sat by Pulse Oximetry (%) 100 11/24/17 21:00 Renal/: Yes: Other (left scrotal sac larger than right. No palpable fluid collection. No redness, no excessive warmth. No pain on palpation of either testicle.) Labs: CBC, BMP 11/25/17 01:00 11/24/17 18:25 Hospitalist Encounter Assessment: scrotal swelling - urology evaluation - if persistent could obtain scrotal US.
[2017-11-25 06:36] LABS: BASO % 0.7 % (0-2.0); EOS % 2.3 % (0-4.5); HEMATOCRIT 23.7 % (35.4-49); HEMOGLOBIN 8.2 GM/dL (11.7-16.9); LYMPH % 10.8 % (8-40); MCH 29.1 pg (25.7-33.7); MCHC 34.7 g/dl (32.0-35.9); MEAN CELL VOLUME 83.8 fl (80-96); MEAN PLT VOLUME 8.3 fl (7.5-11.1); MONO % 16.8 % (3.8-10.2); NEUT % 69.4 % (42.8-82.8); PLATELET COUNT 209 K/MM3 (134-434); RBC 2.83 M/mm3 (4.00-5.60); RDW 16.8 % (11.9-15.9); WHITE BLOOD COUNT 9.2 K/mm3 (4.0-10.0)
[2017-11-25 06:58] LABS: ANION GAP 8 (8-16); BLOOD UREA NITROGEN 42 mg/dL (7-18); CALCIUM 8.7 mg/dL (8.5-10.1); CHLORIDE 100 mmol/L (98-107); CO2 31 mmol/L (21-32); GLUCOSE,RANDOM 95 mg/dL (74-106); MAGNESIUM 1.9 mg/dL (1.8-2.4); PHOSPHOROUS 5.3 mg/dL (2.5-4.9); POTASSIUM 4.6 mmol/L (3.5-5.1); SODIUM 139 mmol/L (136-145)
[2017-11-25] MEDS ORDERED: LABETALOL HCL 5 MG/1 ML (100MG/20 ML VIAL) IVPUSH PRN (08:27)
[2017-11-25] MEDS ORDERED: ACETAMINOPHEN 325 MG TABLET (FP) PO PRN ×3 (08:31→17:20)
[2017-11-25 08:48] LABS: CREATININE 9.5 mg/dL (0.7-1.3)
[2017-11-25] MEDS: MUPIROCIN 2% TOPICAL OINTMENT FOR DECOLONIZATION NS SCH ×2 (09:22→21:42)
[2017-11-25] MEDS: LABETALOL HCL 100 MG TABLET (FP) PO SCH ×2 (09:22→21:42)
[2017-11-25 09:57] LABS: INR 1.24 (0.82-1.09)
[2017-11-25 10:00] LABS: ACTIVATED PTT 26.7 SECONDS (26.9-34.4)
--- NOTE | 2017-11-25 12:59 | PN ---
Progress Note, Physician History of Present Illness: Pt seen and examined at bedside. He is awake and alert. He feels that pain is improved. He tolerated HD last night. - Current Medication List Current Medications: Active Medications Acetaminophen (Tylenol -) 650 mg PO Q6H PRN PRN Reason: pain 1-6 Chlorhexidine Gluconate (Hibiclens For Decolonization -) 1 applic TP HS [facility] Last Admin: 11/24/17 22:33 Dose: 1 applic Labetalol HCl (Normodyne -) 100 mg PO BID [facility] Last Admin: 11/25/17 09:22 Dose: 100 mg Labetalol HCl (Normodyne Injection -) 10 mg IVPUSH Q4H PRN PRN Reason: HYPERTENSION Morphine Sulfate (Morphine Sulfate) 2 mg IVPUSH Q4H PRN PRN Reason: PAIN LEVEL 7 - 10 Last Admin: 11/25/17 11:03 Dose: 2 mg Mupirocin (Bactroban Ointment (For Decolonization) -) 1 applic NS BID [facility] Stop: 11/29/17 21:59 Last Admin: 11/25/17 09:22 Dose: 1 applic Nifedipine (Procardia Xl -) 30 mg PO DAILY [facility] - Objective Vital Signs: Vital Signs Temperature 100 F H 11/25/17 12:00 Pulse Rate 102 H 11/25/17 12:00 Respiratory Rate 24 11/25/17 12:00 Blood Pressure 164/101 11/25/17 12:00 O2 Sat by Pulse Oximetry (%) 100 11/24/17 21:00 Constitutional: Yes: Calm Eyes: Yes: Conjunctiva Clear HENT: Yes: Atraumatic Cardiovascular: Yes: S1, S2 Respiratory: Yes: CTA Bilaterally Gastrointestinal: Yes: Soft, Abdomen, Obese Genitourinary: Yes: WNL Musculoskeletal: Yes: WNL Edema: No Integumentary: Yes: WNL Neurological: Yes: Oriented Psychiatric: Yes: Oriented Labs: CBC, BMP 11/25/17 06:10 11/25/17 06:10 INR, PTT INR 1.24 (0.82-1.09) H 11/25/17 09:05 Problem List - Problems (1) ESRD (end stage renal disease) Code(s): N18.6 - END STAGE RENAL DISEASE (2) HTN (hypertension) Code(s): I10 - ESSENTIAL (PRIMARY) HYPERTENSION (3) Renal hematoma Code(s): S37.019A - MINOR CONTUSION OF UNSPECIFIED KIDNEY, INITIAL ENCOUNTER Qualifiers: Laterality: right (4) Retroperitoneal hematoma Code(s): K66.1 - HEMOPERITONEUM Assessment/Plan Current Medications Generic Name Dose Route Start Last Admin Trade Name Freq PRN Reason Stop Dose Admin Acetaminophen 650 mg 11/25/17 08:31 Tylenol - PO Q6H PRN pain 1-6 Chlorhexidine Gluconate 1 applic 11/24/17 22:00 11/24/17 22:33 Hibiclens For Decolonization - TP 1 applic HS PAMELA Administration Labetalol HCl 100 mg 11/24/17 22:00 11/25/17 09:22 Normodyne - PO 100 mg BID PAMELA Administration Labetalol HCl 10 mg 11/25/17 08:27 Normodyne Injection - IVPUSH Q4H PRN HYPERTENSION Morphine Sulfate 2 mg 11/24/17 19:58 11/25/17 11:03 Morphine Sulfate IVPUSH 2 mg Q4H PRN Administration PAIN LEVEL 7 - 10 Mupirocin 1 applic 11/24/17 22:00 11/25/17 09:22 Bactroban Ointment (For Decolonization) - NS 11/29/17 21:59 1 applic BID PAMELA Administration Nifedipine 30 mg 11/25/17 12:45 Procardia Xl - PO DAILY [facility] Impression 1. ESRD 2. HTN 3. right subcapsular perinephric hematoma 4. anemia acute 5. obesity Plan - pt tolerated HD last night - next session tomorrow - cont to monitor hg and transfuse as needed - IR and urology follow up to evaluate bleed - pt did receive platelets, prbc and ddavp yesterday - can give contrast if needed - discussed with ICU team - will need better bp control, agree with nifedipine - pain control - keep pt in ICU for now - will follow Dr Guerra
--- NOTE | 2017-11-25 13:31 | PN ---
Teaching Attending Note Name of Resident: Shen Augustine ATTENDING PHYSICIAN STATEMENT I saw and evaluated the patient. I reviewed the resident's note and discussed the case with the resident. I agree with the resident's findings and plan as documented. SUBJECTIVE: Pt seen and examined in the ICU. Pain slightly better. H/H stable this AM. Received platelets, dDAVP. Transfused 1 unit PRBC during dialysis. Low grade fever this AM. OBJECTIVE: Last Vital Signs Temp Pulse Resp BP Pulse Ox 99.8 F H 102 H 24 159/100 100 11/25/17 13:04 11/25/17 13:04 11/25/17 13:04 11/25/17 13:04 11/24/17 21:00 Intake & Output 11/22/17 11/23/17 11/24/17 11/25/17 23:59 23:59 23:59 23:59 Intake Total 469 Output Total 30 Balance 469 -30 Weight 81.647 kg 140 kg 139.026 kg Gen: uncomfortable with movements Heart: tachycardic, regular Lung: decreased breath sounds at the bases Abd: RLQ, flank TTP Ext: no edema CBC, BMP 11/25/17 06:10 11/25/17 06:10 Active Medications Acetaminophen (Tylenol -) 650 mg PO Q6H PRN PRN Reason: pain 1-6 Chlorhexidine Gluconate (Hibiclens For Decolonization -) 1 applic TP HS [facility] Last Admin: 11/24/17 22:33 Dose: 1 applic Labetalol HCl (Normodyne -) 100 mg PO BID [facility] Last Admin: 11/25/17 09:22 Dose: 100 mg Labetalol HCl (Normodyne Injection -) 10 mg IVPUSH Q4H PRN PRN Reason: HYPERTENSION Morphine Sulfate (Morphine Sulfate) 2 mg IVPUSH Q4H PRN PRN Reason: PAIN LEVEL 7 - 10 Last Admin: 11/25/17 11:03 Dose: 2 mg Mupirocin (Bactroban Ointment (For Decolonization) -) 1 applic NS BID [facility] Stop: 11/29/17 21:59 Last Admin: 11/25/17 09:22 Dose: 1 applic Nifedipine (Procardia Xl -) 30 mg PO DAILY [facility] ASSESSMENT AND PLAN: Renal Hemorrhage Hypertensive Urgency ESRD on HD Hyperkalemia - pain control - BP control with labetalol IVP and PO, add procardia and titrate up - HD per renal - monitor H/H - transfuse as needed - monitor lytes - urology, IR f/u - mechanical DVT prophylaxis - ICU monitoring critical care time spent in reviewing chart, evaluating patient and formulating plan 35 min
[2017-11-25] MEDS: NIFEdipine E.R. 30 MG TABLET (FP) PO SCH (13:44)
[2017-11-25] MEDS ORDERED: NIFEdipine 10 MG CAPSULE (FP) PO SCH (14:00)
--- NOTE | 2017-11-25 14:42 | PN ---
Progress Note (short form) - Note Progress Note: Transfused 1 U PRBC Seen by Urology and Interventional radiology- no current intervention planned In ICU Pain controlled Vital Signs Period Temp Pulse Resp BP Sys/Green Pulse Ox Last 24 Hr 99 F-100.5 F 92-108 18-27 152-187/88-118 100-100 Abd soft, no rebound, mild right flank tenderness CBC, BMP 11/25/17 06:10 11/25/17 06:10 Serial H/H Hold anticoagulation If H/H decreases, will need either further transfusion, Interventional radiology for embolization, Urology for nephrectomy or a poaaible combination of these interventions Problem List - Problems (1) Renal hematoma Code(s): S37.019A - MINOR CONTUSION OF UNSPECIFIED KIDNEY, INITIAL ENCOUNTER Qualifiers: Laterality: right (2) Retroperitoneal hematoma Code(s): K66.1 - HEMOPERITONEUM
[2017-11-25 15:19] LABS: HEMATOCRIT 23.9 % (35.4-49); HEMOGLOBIN 8.1 GM/dL (11.7-16.9); MCH 28.6 pg (25.7-33.7); MCHC 33.8 g/dl (32.0-35.9); MEAN CELL VOLUME 84.5 fl (80-96); PLATELET COUNT 191 K/MM3 (134-434); RBC 2.82 M/mm3 (4.00-5.60); RDW 17.1 % (11.9-15.9); WHITE BLOOD COUNT 9.4 K/mm3 (4.0-10.0)
--- NOTE | 2017-11-25 15:20 | PN ---
Progress Note (short form) - Note Progress Note: Subjective: The patient was seen and examined at the bedside, he has no complaints at this time Tolerated HD yesterday, next session tomorrow S/p platelets, PRBC, ddavp Current Medications Generic Name Dose Route Start Last Admin Trade Name Freq PRN Reason Stop Dose Admin Acetaminophen 650 mg 11/25/17 08:31 Tylenol - PO Q6H PRN pain 1-6 Chlorhexidine Gluconate 1 applic 11/24/17 22:00 11/24/17 22:33 Hibiclens For Decolonization - TP 1 applic HS PAMELA Administration Labetalol HCl 100 mg 11/24/17 22:00 11/25/17 09:22 Normodyne - PO 100 mg BID PAMELA Administration Labetalol HCl 10 mg 11/25/17 08:27 Normodyne Injection - IVPUSH Q4H PRN HYPERTENSION Morphine Sulfate 2 mg 11/24/17 19:58 11/25/17 11:03 Morphine Sulfate IVPUSH 2 mg Q4H PRN Administration PAIN LEVEL 7 - 10 Mupirocin 1 applic 11/24/17 22:00 11/25/17 09:22 Bactroban Ointment (For Decolonization) - NS 11/29/17 21:59 1 applic BID PAMELA Administration Nifedipine 30 mg 11/25/17 12:45 11/25/17 13:44 Procardia Xl - PO 30 mg DAILY PAMELA Administration Objective: Vital Signs Period Temp Pulse Resp BP Sys/Green Pulse Ox Last 24 Hr 99 F-100.5 F 94-108 18-27 152-187/88-108 100 Physical Exam: GENERAL: Awake, alert, and fully oriented, in no acute distress. LUNGS: Breath sounds equal, clear to auscultation bilaterally. No wheezes, and no crackles. No accessory muscle use. HEART: Regular rate and rhythm, normal S1 and S2 without murmur, rub or gallop. ABDOMEN: Soft, nontender, not distended, normoactive bowel sounds, no guarding, no rebound, no masses. No hepatomegaly or splenomegaly. MUSCULOSKELETAL: Normal range of motion at all joints. No bony deformities or tenderness. UPPER EXTREMITIES: Left arm AV fistula, + thrill, + bruit. 2+ pulses LOWER EXTREMITIES: 2+ pulses, warm, well-perfused. No calf tenderness NEUROLOGICAL: Cranial nerves II-XII intact. Normal speech. Gait not observed PSYCHIATRIC: Cooperative. Good eye contact. Appropriate mood and affect. SKIN: Warm, dry, normal turgor, no rashes or lesions noted, normal capillary refill. CBCD WBC 9.4 K/mm3 (4.0-10.0) 11/25/17 14:10 RBC 2.82 M/mm3 (4.00-5.60) L 11/25/17 14:10 Hgb 8.1 GM/dL (11.7-16.9) L 11/25/17 14:10 Hct 23.9 % (35.4-49) L 11/25/17 14:10 MCV 84.5 fl (80-96) 11/25/17 14:10 MCHC 33.8 g/dl (32.0-35.9) 11/25/17 14:10 RDW 17.1 % (11.9-15.9) H 11/25/17 14:10 Plt Count 191 K/MM3 (134-434) 11/25/17 14:10 MPV 9.0 fl (7.5-11.1) 11/25/17 14:10 CMP Sodium 139 mmol/L (136-145) 11/25/17 06:10 Potassium 4.6 mmol/L (3.5-5.1) 11/25/17 06:10 Chloride 100 mmol/L (98-107) 11/25/17 06:10 Carbon Dioxide 31 mmol/L (21-32) 11/25/17 06:10 Anion Gap 8 (8-16) 11/25/17 06:10 BUN 42 mg/dL (7-18) H D 11/25/17 06:10 Creatinine 9.5 mg/dL (0.7-1.3) H* D 11/25/17 06:10 Creat Clearance w eGFR 5.37 (>60) 11/24/17 12:39 Random Glucose 95 mg/dL (74-106) 11/25/17 06:10 Calcium 8.7 mg/dL (8.5-10.1) 11/25/17 06:10 Total Bilirubin 1.4 mg/dL (0.2-1.0) H 11/24/17 12:39 AST 16 U/L (15-37) D 11/24/17 12:39 ALT 22 U/L (12-78) 11/24/17 12:39 Alkaline Phosphatase 49 U/L (45-117) 11/24/17 12:39 Total Protein 7.9 g/dl (6.4-8.2) 11/24/17 12:39 Albumin 3.7 g/dl (3.4-5.0) 11/24/17 12:39 Assessment: This is a 27 year old male with PMHx of ESRD (on HD at [facility] M ,W,F), HTN, who presented to the ED with right flank pain radiating around his right side to his umbilical area, nausea, one episode of vomiting. Plan: 1) Acute right perinephric hemorrhage - Possible intrarenal hemorrhage as well - Discussed with Dr. Franklin; CTA reviewed - Q4h cbc to evaluate H/H - S/p platelets, PRBC, ddavp yesterday - Pain management - Appreciate surgery consult: discussed with Dr. Figueredo, no surgical intervention at this time - Appreciate urology consult 2) ESRD - HD M,W,F - Appreciate nephrology consult 3) F/E/N: - Remains NPO 4) Prophylaxis: - Hold all chemical DVT prophylaxis 2/2 acute bleed - SCDs bilaterally 5) Dispo: - Requires ICU care CODE STATUS: FULL CODE Visit type - Emergency Visit Emergency Visit: Yes ED Registration Date: 11/24/17 Care time: The patient presented to the Emergency Department on the above date and was hospitalized for further evaluation of their emergent condition. - New Patient This patient is new to me today: No - Critical Care Critical Care patient: Yes Total Critical Care Time (in minutes): 35 Critical Care Statement: The care of this patient involved high complexity decision making to prevent further life threatening deterioration of the patient 's condition and/or to evaluate & treat vital organ system(s) failure or risk of failure.
--- NOTE | 2017-11-25 15:30 | PN ---
Progress Note (short form) - Note Progress Note: Urology follow up. Pt. is stable, still has pain, but not as severe as yesterday. If this bleeding continues, best option would be embolize the right renl artery. Dr. Groves is following the pt. Will follow as necessary.
--- NOTE | 2017-11-25 15:51 | PN ---
Physical Exam: SUBJECTIVE: Patient seen and examined Overnight, pt complained of left testicular swelling but no pain. This am, pt states that abdominal and back pain is well tolerated without movement. He denies chest pain, SOB, n/v/d/c, and dysuria. OBJECTIVE: Vital Signs Period Temp Pulse Resp BP Sys/Green Pulse Ox Last 24 Hr 99 F-100.5 F 94-108 18-27 152-187/88-108 100 GENERAL: The patient is awake, alert, and fully oriented, in no acute distress. HEENT: NC, AT LUNGS: poor inspiratory effort, no appreciable rales or rhonchi HEART: tachycardia, regular rhythm, systolic murmur ABDOMEN: obese abdomen, soft, minimally tender in all 4 quadrants Back: minimal R CVA tenderness EXTREMITIES: 2+ pulses, warm, well-perfused, no edema. NEUROLOGICAL: Cranial nerves II through XII grossly intact. Normal speech, gait not observed. Laboratory Results - last 24 hr 11/24/17 11/24/17 11/24/17 05:46 17:45 18:25 WBC 11.3 H RBC 3.14 L Hgb 8.8 L Hct 26.5 L MCV 84.3 MCH 28.0 MCHC 33.2 RDW 17.1 H Plt Count 211 MPV 8.9 Neutrophils % 75.3 Lymphocytes % 8.3 D Monocytes % 15.3 H Eosinophils % 0.4 D Basophils % 0.7 PT with INR INR PTT (Actin FS) Sodium 138 Potassium 5.5 H Chloride 98 Carbon Dioxide 27 Anion Gap 13 BUN 56 H Creatinine 12.0 H* Random Glucose 105 Calcium 8.9 Phosphorus Magnesium Blood Type A POSITIVE Antibody Screen Negative Crossmatch See Detail 11/24/17 11/25/17 11/25/17 21:35 01:00 06:10 WBC 12.3 H 10.5 H 9.2 RBC 2.86 L 2.98 L 2.83 L Hgb 8.1 L 8.5 L 8.2 L Hct 24.1 L 25.1 L 23.7 L MCV 84.3 84.2 83.8 MCH 28.3 28.5 29.1 MCHC 33.6 33.8 34.7 RDW 16.9 H 16.7 H 16.8 H Plt Count 252 207 209 MPV 8.6 8.9 8.3 Neutrophils % 71.1 67.8 69.4 Lymphocytes % 10.0 D 10.9 10.8 Monocytes % 17.0 H 18.6 H 16.8 H Eosinophils % 1.1 D 1.8 2.3 Basophils % 0.8 0.9 0.7 PT with INR INR PTT (Actin FS) Sodium Potassium Chloride Carbon Dioxide Anion Gap BUN Creatinine Random Glucose Calcium Phosphorus Magnesium Blood Type Antibody Screen Crossmatch 11/25/17 11/25/17 11/25/17 06:10 09:05 14:10 WBC 9.4 RBC 2.82 L Hgb 8.1 L Hct 23.9 L MCV 84.5 MCH 28.6 MCHC 33.8 RDW 17.1 H Plt Count 191 MPV 9.0 Neutrophils % Lymphocytes % Monocytes % Eosinophils % Basophils % PT with INR 14.00 H INR 1.24 H PTT (Actin FS) 26.7 L Sodium 139 Potassium 4.6 Chloride 100 Carbon Dioxide 31 Anion Gap 8 BUN 42 H D Creatinine 9.5 H* D Random Glucose 95 Calcium 8.7 Phosphorus 5.3 H Magnesium 1.9 Blood Type Antibody Screen Crossmatch Active Medications Generic Name Dose Route Start Last Admin Trade Name Freq PRN Reason Stop Dose Admin Acetaminophen 650 mg 11/25/17 08:31 Tylenol - PO Q6H PRN pain 1-6 Chlorhexidine Gluconate 1 applic 11/24/17 22:00 11/24/17 22:33 Hibiclens For Decolonization - TP 1 applic HS PAMELA Administration Labetalol HCl 100 mg 11/24/17 22:00 11/25/17 09:22 Normodyne - PO 100 mg BID PAMELA Administration Labetalol HCl 10 mg 11/25/17 08:27 Normodyne Injection - IVPUSH Q4H PRN HYPERTENSION Morphine Sulfate 2 mg 11/24/17 19:58 11/25/17 11:03 Morphine Sulfate IVPUSH 2 mg Q4H PRN Administration PAIN LEVEL 7 - 10 Mupirocin 1 applic 11/24/17 22:00 11/25/17 09:22 Bactroban Ointment (For Decolonization) - NS 11/29/17 21:59 1 applic BID PAMELA Administration Nifedipine 30 mg 11/25/17 12:45 11/25/17 13:44 Procardia Xl - PO 30 mg DAILY PAMELA Administration ASSESSMENT/PLAN: 27M w/ hx of ESRD (on HD at [facility] M,W,F) and HTN who presented with right flank and abdominal pain, found to have a right subcapsular perinephric hematoma on CT and acute anemia, admitted to ICU. Nephro #Acute right perinephric hemorrhage - Hgb stable at 8.2 - pain is well controlled with morphine and APAP PRN - awaiting response from IR regarding whether they want to perform embolization - Nephrology on board, Dr. Guerra. recs appreciated. - surgery on board, Dr. Figueredo, recs appreciated- no surgical intervention at this time - urology on board, recs appreciated. #ESRD - HD M,W,F - per nephro, HD to be done today CV #HTN -continue home labetalol 100 BID -per nephro, started procardia -IV labetalol pushes PRN -monitor BP ID -pt spiked temp of 100.5 during the day -f/u CXR -f/u UA and Ucx -f/u Bcx -trend temps and wbc counts FEN/ppx -no fluids as pt is on dialysis -hyperphosphatemia - NPO unless IR says that no procedure is to be done - SCDs given acute bleed and acute anemia -no GI ppx indicated Dispo -full code Case discussed with attending, Dr. Nicole. -Shen Augustine MD PGY1 ICU Team Visit type - Emergency Visit Emergency Visit: Yes ED Registration Date: 11/24/17 Care time: The patient presented to the Emergency Department on the above date and was hospitalized for further evaluation of their emergent condition. - New Patient This patient is new to me today: Yes Date on this admission: 11/25/17 - Critical Care Critical Care patient: Yes Total Critical Care Time (in minutes): 36 Critical Care Statement: The care of this patient involved high complexity decision making to prevent further life threatening deterioration of the patient 's condition and/or to evaluate & treat vital organ system(s) failure or risk of failure.
[2017-11-25] MEDS: ACETAMINOPHEN 325 MG TABLET (FP) PO PRN (17:18)
[2017-11-25 17:32] LABS: URINE APPEARANCE SLCLOUDY; URINE BILIRUBIN NEGATIVE (<2.0 mg/dL); URINE BLOOD 1+ (NEGATIVE); URINE COLOR YELLOW; URINE GLUCOSE (UA) NEGATIVE (NEGATIVE); URINE KETONE NEGATIVE (NEGATIVE); URINE NITRITE NEGATIVE (NEGATIVE); URINE UROBILINOGEN NEGATIVE mg/dL (0.2-1.0)
[2017-11-25 17:36] LABS: URINE LEUK ESTERASE 2+ (NEGATIVE); URINE PROTEIN 3+ (NEGATIVE)
[2017-11-25 17:39] LABS: EPI CELLS RARE /HPF (FEW); URINE BACTERIA FEW /hpf (NONE SEEN); URINE MUCUS RARE
[2017-11-25 17:49] LABS: URINE AMPHETAMINES NEGATIVE ng/ml (CUTOFF=500); URINE BARBITURATES NEGATIVE ng/ml (CUTOFF=200); URINE BENZODIAZEPINES NEGATIVE ng/ml (CUTOFF=200)
[2017-11-25 17:50] LABS: COCAINE, UR NEGATIVE ng/ml (CUTOFF=300); METHADONE, UR NEGATIVE ng/ml (CUTOFF=300); OPIATES, URI POSITIVE ng/ml (CUTOFF=300); PHENCYCLIDINE,URINE NEGATIVE ng/ml (CUTOFF=25)
[2017-11-25 19:40] LABS: MCH 28.3 pg (25.7-33.7); MCHC 33.5 g/dl (32.0-35.9); MEAN CELL VOLUME 84.5 fl (80-96); MEAN PLT VOLUME 8.9 fl (7.5-11.1); PLATELET COUNT 204 K/MM3 (134-434); RBC 2.84 M/mm3 (4.00-5.60); WHITE BLOOD COUNT 11.1 K/mm3 (4.0-10.0)
[2017-11-25] MEDS: CHLORHEXIDINE GLUCONATE 4% CLEANSER FOR DECOLONIZATION TP SCH (21:42)
[2017-11-25 22:00] LABS: HEMATOCRIT 23.6 % (35.4-49); HEMOGLOBIN 8.2 GM/dL (11.7-16.9); MCH 29.2 pg (25.7-33.7); MCHC 34.7 g/dl (32.0-35.9); MEAN CELL VOLUME 84.3 fl (80-96); MEAN PLT VOLUME 8.8 fl (7.5-11.1); PLATELET COUNT 202 K/MM3 (134-434); WHITE BLOOD COUNT 10.7 K/mm3 (4.0-10.0)
[2017-11-26 07:00] LABS: BASO % 0.6 % (0-2.0); EOS % 1.5 % (0-4.5); HEMATOCRIT 23.6 % (35.4-49); LYMPH % 10.5 % (8-40); MCH 28.7 pg (25.7-33.7); MCHC 33.9 g/dl (32.0-35.9); MEAN CELL VOLUME 84.6 fl (80-96); MEAN PLT VOLUME 9.2 fl (7.5-11.1); MONO % 15.5 % (3.8-10.2); NEUT % 71.9 % (42.8-82.8); PLATELET COUNT 197 K/MM3 (134-434); RBC 2.79 M/mm3 (4.00-5.60); RDW 16.6 % (11.9-15.9); WHITE BLOOD COUNT 10.2 K/mm3 (4.0-10.0)
[2017-11-26 07:22] LABS: CHLORIDE 97 mmol/L (98-107); POTASSIUM 4.9 mmol/L (3.5-5.1); SODIUM 138 mmol/L (136-145)
[2017-11-26 07:34] LABS: ALBUMIN 3.4 g/dl (3.4-5.0); ALK PHOS 46 U/L (45-117); ANION GAP 13 (8-16); BILIRUBIN,TOTAL 2.1 mg/dL (0.2-1.0); BLOOD UREA NITROGEN 63 mg/dL (7-18); CALCIUM 9.1 mg/dL (8.5-10.1); CO2 28 mmol/L (21-32); GLUCOSE,RANDOM 82 mg/dL (74-106); MAGNESIUM 2.2 mg/dL (1.8-2.4); PHOSPHOROUS 6.5 mg/dL (2.5-4.9); SGOT/AST 12 U/L (15-37); SGPT/ALT 14 U/L (12-78); TOT PROT 7.5 g/dl (6.4-8.2)
[2017-11-26 07:56] LABS: INR 1.29 (0.82-1.09); PROTHROMBIN TIME (PATIENT) 14.6 SEC (9.98-11.88)
[2017-11-26 07:58] LABS: ACTIVATED PTT 27.8 SECONDS (26.9-34.4)
[2017-11-26 08:12] LABS: HBSAG SCREEN Negative (Negative); HEP B CORE AB, TOT Negative (Negative)
--- NOTE | 2017-11-26 08:42 | PN ---
Physical Exam: SUBJECTIVE: Patient seen and examined in the ICU. Sitting up, in no acute distress. Feel well, wants to eat. OBJECTIVE: BP stable on cardiac sonographer, heart rate 104, no pain for dialysis today Vital Signs Period Temp Pulse Resp BP Sys/Green Pulse Ox Last 24 Hr 98.7 F-101.1 F 96-112 16-28 129-178/75-110 100 GENERAL: The patient is awake, alert, and fully oriented, in no acute distress. HEAD: Normal with no signs of trauma. EYES: PERRL, extraocular movements intact, sclera anicteric, conjunctiva clear. No ptosis. ENT: Ears normal, nares patent, oropharynx clear without exudates, moist mucous membranes. NECK: Trachea midline, full range of motion, supple. LUNGS: Breath sounds equal, diminshed bilaterally ABDOMEN: Soft, nontender, nondistended, normoactive bowel sounds EXTREMITIES: no edema, left arm av fistula NEUROLOGICAL: Normal speech, gait not observed. PSYCH: Normal mood, normal affect. SKIN: Warm, dry, normal turgor, no rashes or lesions noted Laboratory Results - last 24 hr 11/24/17 11/24/17 11/25/17 22:15 22:15 06:10 WBC RBC Hgb Hct MCV MCH MCHC RDW Plt Count MPV Neutrophils % Lymphocytes % Monocytes % Eosinophils % Basophils % PT with INR INR PTT (Actin FS) Sodium 139 Potassium 4.6 Chloride 100 Carbon Dioxide 31 Anion Gap 8 BUN 42 H D Creatinine 9.5 H* D Creat Clearance w eGFR Random Glucose 95 Calcium 8.7 Phosphorus 5.3 H Magnesium 1.9 Total Bilirubin AST ALT Alkaline Phosphatase Total Protein Albumin Urine Color Urine Appearance Urine pH Ur Specific Heath Urine Protein Urine Glucose (UA) Urine Ketones Urine Blood Urine Nitrite Urine Bilirubin Urine Urobilinogen Ur Leukocyte Esterase Urine WBC (Auto) Urine RBC (Auto) Ur Epithelial Cells Urine Bacteria Urine Mucus Opiates Screen Methadone Screen Barbiturate Screen Phencyclidine Screen Ur Amphetamines Screen MDMA (Ecstasy) Screen Benzodiazepines Screen Cocaine Screen U Marijuana (THC) Screen Hepatitis A Ab Total Negative Hep Bs Antigen Negative Hep Bs Antibody Reactive Hep B Core Total Ab Negative Hep C Ab Diagnostic <0.1 Liver Fibrosis Interp 11/25/17 11/25/17 11/25/17 09:05 14:10 19:05 WBC 9.4 11.1 H RBC 2.82 L 2.84 L Hgb 8.1 L 8.0 L Hct 23.9 L 24.0 L MCV 84.5 84.5 MCH 28.6 28.3 MCHC 33.8 33.5 RDW 17.1 H 17.0 H Plt Count 191 204 MPV 9.0 8.9 Neutrophils % Lymphocytes % Monocytes % Eosinophils % Basophils % PT with INR 14.00 H INR 1.24 H PTT (Actin FS) 26.7 L Sodium Potassium Chloride Carbon Dioxide Anion Gap BUN Creatinine Creat Clearance w eGFR Random Glucose Calcium Phosphorus Magnesium Total Bilirubin AST ALT Alkaline Phosphatase Total Protein Albumin Urine Color Urine Appearance Urine pH Ur Specific Heath Urine Protein Urine Glucose (UA) Urine Ketones Urine Blood Urine Nitrite Urine Bilirubin Urine Urobilinogen Ur Leukocyte Esterase Urine WBC (Auto) Urine RBC (Auto) Ur Epithelial Cells Urine Bacteria Urine Mucus Opiates Screen Methadone Screen Barbiturate Screen Phencyclidine Screen Ur Amphetamines Screen MDMA (Ecstasy) Screen Benzodiazepines Screen Cocaine Screen U Marijuana (THC) Screen Hepatitis A Ab Total Hep Bs Antigen Hep Bs Antibody Hep B Core Total Ab Hep C Ab Diagnostic Liver Fibrosis Interp 11/25/17 11/25/17 11/25/17 21:15 Unknown Unknown WBC 10.7 H RBC 2.80 L Hgb 8.2 L Hct 23.6 L MCV 84.3 MCH 29.2 MCHC 34.7 RDW 17.0 H Plt Count 202 MPV 8.8 Neutrophils % Lymphocytes % Monocytes % Eosinophils % Basophils % PT with INR INR PTT (Actin FS) Sodium Potassium Chloride Carbon Dioxide Anion Gap BUN Creatinine Creat Clearance w eGFR Random Glucose Calcium Phosphorus Magnesium Total Bilirubin AST ALT Alkaline Phosphatase Total Protein Albumin Urine Color Yellow Urine Appearance Slcloudy Urine pH 7.0 Ur Specific Heath 1.018 Urine Protein 3+ H Urine Glucose (UA) Negative Urine Ketones Negative Urine Blood 1+ H Urine Nitrite Negative Urine Bilirubin Negative Urine Urobilinogen Negative Ur Leukocyte Esterase 2+ H Urine WBC (Auto) 179 Urine RBC (Auto) 12 Ur Epithelial Cells Rare Urine Bacteria Few Urine Mucus Rare Opiates Screen Positive Methadone Screen Negative Barbiturate Screen Negative Phencyclidine Screen Negative Ur Amphetamines Screen Negative MDMA (Ecstasy) Screen Negative Benzodiazepines Screen Negative Cocaine Screen Negative U Marijuana (THC) Screen Negative Hepatitis A Ab Total Hep Bs Antigen Hep Bs Antibody Hep B Core Total Ab Hep C Ab Diagnostic Liver Fibrosis Interp 11/26/17 11/26/17 11/26/17 06:15 06:15 06:15 WBC 10.2 H RBC 2.79 L Hgb 8.0 L Hct 23.6 L MCV 84.6 MCH 28.7 MCHC 33.9 RDW 16.6 H Plt Count 197 MPV 9.2 Neutrophils % 71.9 Lymphocytes % 10.5 Monocytes % 15.5 H Eosinophils % 1.5 Basophils % 0.6 PT with INR 14.60 H INR 1.29 H PTT (Actin FS) 27.8 Sodium 138 Potassium 4.9 Chloride 97 L Carbon Dioxide 28 Anion Gap 13 BUN 63 H D Creatinine Creat Clearance w eGFR 4.30 Random Glucose 82 Calcium 9.1 Phosphorus 6.5 H D Magnesium 2.2 Total Bilirubin 2.1 H D AST 12 L D ALT 14 D Alkaline Phosphatase 46 Total Protein 7.5 Albumin 3.4 Urine Color Urine Appearance Urine pH Ur Specific Heath Urine Protein Urine Glucose (UA) Urine Ketones Urine Blood Urine Nitrite Urine Bilirubin Urine Urobilinogen Ur Leukocyte Esterase Urine WBC (Auto) Urine RBC (Auto) Ur Epithelial Cells Urine Bacteria Urine Mucus Opiates Screen Methadone Screen Barbiturate Screen Phencyclidine Screen Ur Amphetamines Screen MDMA (Ecstasy) Screen Benzodiazepines Screen Cocaine Screen U Marijuana (THC) Screen Hepatitis A Ab Total Hep Bs Antigen Hep Bs Antibody Hep B Core Total Ab Hep C Ab Diagnostic Liver Fibrosis Interp Active Medications Generic Name Dose Route Start Last Admin Trade Name Freq PRN Reason Stop Dose Admin Acetaminophen 650 mg 11/25/17 17:15 11/25/17 17:18 Tylenol - PO 650 mg Q6H PRN Administration PAIN LEVEL 1-6 Acetaminophen 650 mg 11/25/17 17:20 Tylenol - PO Q6H PRN FEVER Chlorhexidine Gluconate 1 applic 11/24/17 22:00 11/25/17 21:42 Hibiclens For Decolonization - TP Not Given HS PAMELA Labetalol HCl 100 mg 11/24/17 22:00 11/25/17 21:42 Normodyne - PO 100 mg BID PAMELA Administration Labetalol HCl 10 mg 11/25/17 08:27 11/25/17 19:57 Normodyne Injection - IVPUSH 10 mg Q4H PRN Administration HYPERTENSION Morphine Sulfate 2 mg 11/24/17 19:58 11/25/17 20:46 Morphine Sulfate IVPUSH 2 mg Q4H PRN Administration PAIN LEVEL 7 - 10 Mupirocin 1 applic 11/24/17 22:00 11/25/17 21:42 Bactroban Ointment (For Decolonization) - NS 11/29/17 21:59 1 applic BID PAMELA Administration Nifedipine 30 mg 11/25/17 12:45 11/25/17 13:44 Procardia Xl - PO 30 mg DAILY PAMELA Administration ASSESSMENT/PLAN: Patient is a 27 year old male with a significant past medical history of ESRD and hypertension. He presents to the ED with right flank pain radiating around his right side to his umbilical area accompanied by nausea and vomiting. Imaging: CT/abd/pelvis: Large right subcapsular perinephric hematoma compressing the right kidney with extracapsular extension of hemorrhage into the retropeitoneum has slightly increased since CT performed earlier on same day. 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 Renal Large right supcapsular perinephric hematoma compressing the right kidney with extracapsular extension of hemorrhage into the retropeitoneum Monitor hmg/hct q6 hours Patient has been transfused with both platelets and prbc during admission Morphine prn Followed by surgery, no surgical interventions but will close monitor Urology/renal following ESRD, chronic On dialysis via left arm fistula: MWF For dialysis today Card: Hypertension, BP elevated today On Labetalol 100mg BID, Procardia XL PO daily, labetalol mg pushes q 4mg prn Monitor BP, increase meds F.E.N. Fluids: PO adequate Electrolytes: monitor Nutrition: renal diet Prophy: GI: deferred DVT: contraindicated for bleeding risk Visit type - Emergency Visit Emergency Visit: Yes ED Registration Date: 11/24/17 Care time: The patient presented to the Emergency Department on the above date and was hospitalized for further evaluation of their emergent condition. - New Patient This patient is new to me today: Yes Date on this admission: 11/26/17 - Critical Care Critical Care patient: Yes Total Critical Care Time (in minutes): 40 Critical Care Statement: The care of this patient involved high complexity decision making to prevent further life threatening deterioration of the patient 's condition and/or to evaluate & treat vital organ system(s) failure or risk of failure.
--- NOTE | 2017-11-26 08:57 | PN ---
Progress Note (short form) - Note Progress Note: No acute events Pain controlled Vital Signs Period Temp Pulse Resp BP Sys/Green Pulse Ox Last 24 Hr 98.7 F-101.1 F 96-112 16-28 129-178/75-110 96-100 Abd soft, NT CBC, BMP 11/26/17 06:15 11/26/17 06:15 Serial H/H Hold anticoagulation Problem List - Problems (1) Renal hematoma Code(s): S37.019A - MINOR CONTUSION OF UNSPECIFIED KIDNEY, INITIAL ENCOUNTER Qualifiers: Laterality: right (2) Retroperitoneal hematoma Code(s): K66.1 - HEMOPERITONEUM
[2017-11-26 09:03] LABS: CREATININE 13.8 mg/dL (0.7-1.3)
[2017-11-26] MEDS: MUPIROCIN 2% TOPICAL OINTMENT FOR DECOLONIZATION NS SCH ×2 (10:03→22:22)
[2017-11-26] MEDS: NIFEdipine E.R. 30 MG TABLET (FP) PO SCH (10:03)
[2017-11-26] MEDS: LABETALOL HCL 100 MG TABLET (FP) PO SCH ×2 (10:03→22:22)
[2017-11-26 10:33] LABS: HEMATOCRIT 24.9 % (35.4-49); HEMOGLOBIN 8.5 GM/dL (11.7-16.9); MCH 28.8 pg (25.7-33.7); MCHC 33.9 g/dl (32.0-35.9); MEAN CELL VOLUME 84.9 fl (80-96); MEAN PLT VOLUME 8.6 fl (7.5-11.1); PLATELET COUNT 199 K/MM3 (134-434); RBC 2.93 M/mm3 (4.00-5.60); RDW 16.7 % (11.9-15.9); WHITE BLOOD COUNT 11.4 K/mm3 (4.0-10.0)
--- NOTE | 2017-11-26 12:21 | PN ---
Teaching Attending Note Name of Resident: Shen Augustine ATTENDING PHYSICIAN STATEMENT I saw and evaluated the patient. I reviewed the resident's note and discussed the case with the resident. I agree with the resident's findings and plan as documented. SUBJECTIVE: Pt seen and examined in the ICU. Pain better, only with movements now. H/H stable. Febrile overnight. OBJECTIVE: Last Vital Signs Temp Pulse Resp BP Pulse Ox 99.9 F H 100 H 22 162/102 96 11/26/17 11:00 11/26/17 11:00 11/26/17 11:00 11/26/17 11:00 11/26/17 08:50 Intake & Output 11/23/17 11/24/17 11/25/17 11/26/17 23:59 23:59 23:59 23:59 Intake Total 469 40 50 Output Total 180 50 Balance 469 -140 0 Weight 81.647 kg 140 kg 139.026 kg 139.508 kg Gen: NAD at rest Heart: tachycardic, regular Lung: decreased breath sounds right base Abd: soft, nontender Ext: no edema CBC, BMP 11/26/17 10:05 11/26/17 06:15 Active Medications Acetaminophen (Tylenol -) 650 mg PO Q6H PRN PRN Reason: PAIN LEVEL 1-6 Last Admin: 11/25/17 17:18 Dose: 650 mg Acetaminophen (Tylenol -) 650 mg PO Q6H PRN PRN Reason: FEVER Chlorhexidine Gluconate (Hibiclens For Decolonization -) 1 applic TP HS [facility] Last Admin: 11/25/17 21:42 Dose: Not Given Epoetin Jared (Epogen -) 5,000 unit IVPUSH ONCE ONE Stop: 11/26/17 10:28 Sodium Chloride (Normal Saline -) 250 mls @ 3,000 mls/hr IV PRN PRN PRN Reason: Hypotension during Dialysis Stop: 11/27/17 10:27 Ceftriaxone Sodium 1 gm/ (Dextrose) 100 mls @ 200 mls/hr IVPB DAILY [facility] Labetalol HCl (Normodyne -) 100 mg PO BID [facility] Last Admin: 11/26/17 10:03 Dose: 100 mg Labetalol HCl (Normodyne Injection -) 10 mg IVPUSH Q4H PRN PRN Reason: HYPERTENSION Last Admin: 11/25/17 19:57 Dose: 10 mg Morphine Sulfate (Morphine Sulfate) 2 mg IVPUSH Q4H PRN PRN Reason: PAIN LEVEL 7 - 10 Last Admin: 11/25/17 20:46 Dose: 2 mg Mupirocin (Bactroban Ointment (For Decolonization) -) 1 applic NS BID [facility] Stop: 11/29/17 21:59 Last Admin: 11/26/17 10:03 Dose: 1 applic Nifedipine (Procardia Xl -) 30 mg PO DAILY [facility] Last Admin: 11/26/17 10:03 Dose: 30 mg ASSESSMENT AND PLAN: Renal Hemorrhage Hypertensive Urgency ESRD on HD Hyperkalemia UTI Right Base Atelectasis - start antibiotics - f/u cultures - incentive spirometry - pain control - titrate BP control - HD per renal - monitor H/H - transfuse as needed - monitor lytes - urology, IR f/u for definitive plan, surgery f/u for ?hematoma evacuation once stable - mechanical DVT prophylaxis - continue ICU monitoring critical care time spent in reviewing chart, evaluating patient and formulating plan 35 min
[2017-11-26] MEDS: CEFTRIAXONE 1 GM in DEXTROSE 5%-WATER - 50 ML IVPB SCH (13:00)
[2017-11-26] MEDS ORDERED: cefTRIAXone SODIUM 1 GM VIAL ONE (13:21)
[2017-11-26] MEDS ORDERED: DEXTROSE 5%-WATER - 50 ML IVPB ONE (13:21)
--- NOTE | 2017-11-26 15:26 | PN ---
Physical Exam: SUBJECTIVE: Patient seen and examined Pt spiked temp of 101.1 overnight. He denies SOB, cough, chest pain, n/v/d/c, dysuria, and LE pain. He endorses abdominal/back pain when moving, but it is well controlled on pain meds. OBJECTIVE: Vital Signs Period Temp Pulse Resp BP Sys/Green Pulse Ox Last 24 Hr 98.7 F-101.1 F 99-112 16-28 129-168/75-110 96-100 GENERAL: The patient is awake, alert, and fully oriented, in no acute distress. HEENT: NC, AT LUNGS: poor inspiratory effort, no appreciable rales or rhonchi HEART: tachycardia, regular rhythm, systolic murmur ABDOMEN: obese abdomen, soft, minimally tender in all 4 quadrants EXTREMITIES: 2+ pulses, warm, well-perfused, no edema. NEUROLOGICAL: Cranial nerves II through XII grossly intact. Normal speech, gait not observed. Laboratory Results - last 24 hr 11/24/17 11/24/17 11/25/17 22:15 22:15 14:10 WBC 9.4 RBC 2.82 L Hgb 8.1 L Hct 23.9 L MCV 84.5 MCH 28.6 MCHC 33.8 RDW 17.1 H Plt Count 191 MPV 9.0 Neutrophils % Lymphocytes % Monocytes % Eosinophils % Basophils % PT with INR INR PTT (Actin FS) Sodium Potassium Chloride Carbon Dioxide Anion Gap BUN Creatinine Creat Clearance w eGFR Random Glucose Calcium Phosphorus Magnesium Total Bilirubin AST ALT Alkaline Phosphatase Total Protein Albumin Urine Color Urine Appearance Urine pH Ur Specific [place] Urine Protein Urine Glucose (UA) Urine Ketones Urine Blood Urine Nitrite Urine Bilirubin Urine Urobilinogen Ur Leukocyte Esterase Urine WBC (Auto) Urine RBC (Auto) Ur Epithelial Cells Urine Bacteria Urine Mucus Opiates Screen Methadone Screen Barbiturate Screen Phencyclidine Screen Ur Amphetamines Screen MDMA (Ecstasy) Screen Benzodiazepines Screen Cocaine Screen U Marijuana (THC) Screen Hepatitis A Ab Total Negative Hep Bs Antigen Negative Hep Bs Antibody Reactive Hep B Core Total Ab Negative Hep C Ab Diagnostic <0.1 Liver Fibrosis Interp 11/25/17 11/25/17 11/25/17 19:05 21:15 Unknown WBC 11.1 H 10.7 H RBC 2.84 L 2.80 L Hgb 8.0 L 8.2 L Hct 24.0 L 23.6 L MCV 84.5 84.3 MCH 28.3 29.2 MCHC 33.5 34.7 RDW 17.0 H 17.0 H Plt Count 204 202 MPV 8.9 8.8 Neutrophils % Lymphocytes % Monocytes % Eosinophils % Basophils % PT with INR INR PTT (Actin FS) Sodium Potassium Chloride Carbon Dioxide Anion Gap BUN Creatinine Creat Clearance w eGFR Random Glucose Calcium Phosphorus Magnesium Total Bilirubin AST ALT Alkaline Phosphatase Total Protein Albumin Urine Color Urine Appearance Urine pH Ur Specific [place] Urine Protein Urine Glucose (UA) Urine Ketones Urine Blood Urine Nitrite Urine Bilirubin Urine Urobilinogen Ur Leukocyte Esterase Urine WBC (Auto) Urine RBC (Auto) Ur Epithelial Cells Urine Bacteria Urine Mucus Opiates Screen Positive Methadone Screen Negative Barbiturate Screen Negative Phencyclidine Screen Negative Ur Amphetamines Screen Negative MDMA (Ecstasy) Screen Negative Benzodiazepines Screen Negative Cocaine Screen Negative U Marijuana (THC) Screen Negative Hepatitis A Ab Total Hep Bs Antigen Hep Bs Antibody Hep B Core Total Ab Hep C Ab Diagnostic Liver Fibrosis Interp 11/25/17 11/26/17 11/26/17 Unknown 06:15 06:15 WBC 10.2 H RBC 2.79 L Hgb 8.0 L Hct 23.6 L MCV 84.6 MCH 28.7 MCHC 33.9 RDW 16.6 H Plt Count 197 MPV 9.2 Neutrophils % 71.9 Lymphocytes % 10.5 Monocytes % 15.5 H Eosinophils % 1.5 Basophils % 0.6 PT with INR 14.60 H INR 1.29 H PTT (Actin FS) 27.8 Sodium Potassium Chloride Carbon Dioxide Anion Gap BUN Creatinine Creat Clearance w eGFR Random Glucose Calcium Phosphorus Magnesium Total Bilirubin AST ALT Alkaline Phosphatase Total Protein Albumin Urine Color Yellow Urine Appearance Slcloudy Urine pH 7.0 Ur Specific [place] 1.018 Urine Protein 3+ H Urine Glucose (UA) Negative Urine Ketones Negative Urine Blood 1+ H Urine Nitrite Negative Urine Bilirubin Negative Urine Urobilinogen Negative Ur Leukocyte Esterase 2+ H Urine WBC (Auto) 179 Urine RBC (Auto) 12 Ur Epithelial Cells Rare Urine Bacteria Few Urine Mucus Rare Opiates Screen Methadone Screen Barbiturate Screen Phencyclidine Screen Ur Amphetamines Screen MDMA (Ecstasy) Screen Benzodiazepines Screen Cocaine Screen U Marijuana (THC) Screen Hepatitis A Ab Total Hep Bs Antigen Hep Bs Antibody Hep B Core Total Ab Hep C Ab Diagnostic Liver Fibrosis Interp 11/26/17 11/26/17 06:15 10:05 WBC 11.4 H RBC 2.93 L Hgb 8.5 L Hct 24.9 L MCV 84.9 MCH 28.8 MCHC 33.9 RDW 16.7 H Plt Count 199 MPV 8.6 Neutrophils % Lymphocytes % Monocytes % Eosinophils % Basophils % PT with INR INR PTT (Actin FS) Sodium 138 Potassium 4.9 Chloride 97 L Carbon Dioxide 28 Anion Gap 13 BUN 63 H D Creatinine 13.8 H* D Creat Clearance w eGFR 4.30 Random Glucose 82 Calcium 9.1 Phosphorus 6.5 H D Magnesium 2.2 Total Bilirubin 2.1 H D AST 12 L D ALT 14 D Alkaline Phosphatase 46 Total Protein 7.5 Albumin 3.4 Urine Color Urine Appearance Urine pH Ur Specific [place] Urine Protein Urine Glucose (UA) Urine Ketones Urine Blood Urine Nitrite Urine Bilirubin Urine Urobilinogen Ur Leukocyte Esterase Urine WBC (Auto) Urine RBC (Auto) Ur Epithelial Cells Urine Bacteria Urine Mucus Opiates Screen Methadone Screen Barbiturate Screen Phencyclidine Screen Ur Amphetamines Screen MDMA (Ecstasy) Screen Benzodiazepines Screen Cocaine Screen U Marijuana (THC) Screen Hepatitis A Ab Total Hep Bs Antigen Hep Bs Antibody Hep B Core Total Ab Hep C Ab Diagnostic Liver Fibrosis Interp Active Medications Generic Name Dose Route Start Last Admin Trade Name Freq PRN Reason Stop Dose Admin Acetaminophen 650 mg 11/25/17 17:15 11/25/17 17:18 Tylenol - PO 650 mg Q6H PRN Administration PAIN LEVEL 1-6 Acetaminophen 650 mg 11/25/17 17:20 Tylenol - PO Q6H PRN FEVER Chlorhexidine Gluconate 1 applic 11/24/17 22:00 11/25/17 21:42 Hibiclens For Decolonization - TP Not Given HS PAMELA Epoetin Jared 5,000 unit 11/26/17 10:27 Epogen - IVPUSH 11/26/17 10:28 ONCE ONE Sodium Chloride 250 mls @ 3,000 mls/hr 11/26/17 10:27 Normal Saline - IV 11/27/17 10:27 PRN PRN Hypotension during Dialysis Ceftriaxone Sodium 1 gm/ 50 mls @ 100 mls/hr 11/26/17 12:15 11/26/17 13:00 Dextrose IVPB 100 mls/hr DAILY PAMELA Administration Labetalol HCl 100 mg 11/24/17 22:00 11/26/17 10:03 Normodyne - PO 100 mg BID PAMELA Administration Labetalol HCl 10 mg 11/25/17 08:27 11/25/17 19:57 Normodyne Injection - IVPUSH 10 mg Q4H PRN Administration HYPERTENSION Morphine Sulfate 2 mg 11/24/17 19:58 11/25/17 20:46 Morphine Sulfate IVPUSH 2 mg Q4H PRN Administration PAIN LEVEL 7 - 10 Mupirocin 1 applic 11/24/17 22:00 11/26/17 10:03 Bactroban Ointment (For Decolonization) - NS 11/29/17 21:59 1 applic BID PAMELA Administration Nifedipine 30 mg 11/25/17 12:45 11/26/17 10:03 Procardia Xl - PO 30 mg DAILY PAMELA Administration ASSESSMENT/PLAN: 27M w/ hx of ESRD (on HD at [facility] M,W,F) and HTN who presented with right flank and abdominal pain, found to have a right subcapsular perinephric hematoma on CT and acute anemia, admitted to ICU. Nephro #Acute right perinephric hemorrhage - Hgb stable at 8 - pain is well controlled with morphine and APAP PRN - IR: no acute intervention required, no immediate concern for infection around site of bleed. 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 - Nephrology on board, Dr. Guerra. recs appreciated. - surgery on board, Dr. Figueredo, recs appreciated- no surgical intervention at this time - urology on board, recs appreciated. #ESRD - HD M,W,F CV #HTN -continue home labetalol 100 BID -per nephro, started procardia -IV labetalol pushes PRN -monitor BP ID -pt spiked temp of 101.1 -CXR: possible LLL infiltrate, right sided effusion -UA: 2+ LE, 179 wbc -f/u Ucx -f/u Bcx -trend temps and wbc counts -incentive spirometry -OOB -ceftriaxone started for possible UTI vs. PNA FEN/ppx -no fluids as pt is on dialysis -hyperphosphatemia -started on sodium controlled diet - SCDs given acute bleed and acute anemia -no GI ppx indicated Dispo -full code -pt stable for transfer to floors Case discussed with attending, Dr. Nicole. -Shen Augustine MD PGY1 ICU Team Visit type - Emergency Visit Emergency Visit: Yes ED Registration Date: 11/24/17 Care time: The patient presented to the Emergency Department on the above date and was hospitalized for further evaluation of their emergent condition. - New Patient This patient is new to me today: No - Critical Care Critical Care patient: Yes Total Critical Care Time (in minutes): 36 Critical Care Statement: The care of this patient involved high complexity decision making to prevent further life threatening deterioration of the patient 's condition and/or to evaluate & treat vital organ system(s) failure or risk of failure.
--- NOTE | 2017-11-26 16:29 | PN ---
Progress Note, Physician History of Present Illness: Pt seen and examined at bedside. He is awake and alert. He feels that the abd pain is improving. - Current Medication List Current Medications: Active Medications Acetaminophen (Tylenol -) 650 mg PO Q6H PRN PRN Reason: PAIN LEVEL 1-6 Last Admin: 11/25/17 17:18 Dose: 650 mg Acetaminophen (Tylenol -) 650 mg PO Q6H PRN PRN Reason: FEVER Chlorhexidine Gluconate (Hibiclens For Decolonization -) 1 applic TP HS [facility] Last Admin: 11/25/17 21:42 Dose: Not Given Epoetin Jared (Epogen -) 5,000 unit IVPUSH ONCE ONE Stop: 11/26/17 10:28 Sodium Chloride (Normal Saline -) 250 mls @ 3,000 mls/hr IV PRN PRN PRN Reason: Hypotension during Dialysis Stop: 11/27/17 10:27 Ceftriaxone Sodium 1 gm/ (Dextrose) 50 mls @ 100 mls/hr IVPB DAILY [facility] Last Admin: 11/26/17 13:00 Dose: 100 mls/hr Labetalol HCl (Normodyne -) 100 mg PO BID [facility] Last Admin: 11/26/17 10:03 Dose: 100 mg Labetalol HCl (Normodyne Injection -) 10 mg IVPUSH Q4H PRN PRN Reason: HYPERTENSION Last Admin: 11/25/17 19:57 Dose: 10 mg Morphine Sulfate (Morphine Sulfate) 2 mg IVPUSH Q4H PRN PRN Reason: PAIN LEVEL 7 - 10 Last Admin: 11/25/17 20:46 Dose: 2 mg Mupirocin (Bactroban Ointment (For Decolonization) -) 1 applic NS BID [facility] Stop: 11/29/17 21:59 Last Admin: 11/26/17 10:03 Dose: 1 applic Nifedipine (Procardia Xl -) 30 mg PO DAILY [facility] Last Admin: 11/26/17 10:03 Dose: 30 mg - Objective Vital Signs: Vital Signs Temperature 99.8 F H 11/26/17 13:30 Pulse Rate 107 H 11/26/17 15:00 Respiratory Rate 23 11/26/17 15:00 Blood Pressure 158/96 11/26/17 15:00 O2 Sat by Pulse Oximetry (%) 96 11/26/17 08:50 Constitutional: Yes: Calm Eyes: Yes: Conjunctiva Clear HENT: Yes: Atraumatic Cardiovascular: Yes: S1, S2 Respiratory: Yes: CTA Bilaterally Gastrointestinal: Yes: Soft, Abdomen, Obese Genitourinary: Yes: WNL Musculoskeletal: Yes: WNL Edema: No Neurological: Yes: Oriented Psychiatric: Yes: Oriented Labs: CBC, BMP 11/26/17 10:05 11/26/17 06:15 INR, PTT INR 1.29 (0.82-1.09) H 11/26/17 06:15 Problem List - Problems (1) ESRD (end stage renal disease) Code(s): N18.6 - END STAGE RENAL DISEASE (2) HTN (hypertension) Code(s): I10 - ESSENTIAL (PRIMARY) HYPERTENSION (3) Renal hematoma Code(s): S37.019A - MINOR CONTUSION OF UNSPECIFIED KIDNEY, INITIAL ENCOUNTER Qualifiers: Laterality: right (4) Retroperitoneal hematoma Code(s): K66.1 - HEMOPERITONEUM Assessment/Plan Current Medications Generic Name Dose Route Start Last Admin Trade Name Freq PRN Reason Stop Dose Admin Acetaminophen 650 mg 11/25/17 17:15 11/25/17 17:18 Tylenol - PO 650 mg Q6H PRN Administration PAIN LEVEL 1-6 Acetaminophen 650 mg 11/25/17 17:20 Tylenol - PO Q6H PRN FEVER Chlorhexidine Gluconate 1 applic 11/24/17 22:00 11/25/17 21:42 Hibiclens For Decolonization - TP Not Given HS PAMELA Epoetin Jared 5,000 unit 11/26/17 10:27 Epogen - IVPUSH 11/26/17 10:28 ONCE ONE Sodium Chloride 250 mls @ 3,000 mls/hr 11/26/17 10:27 Normal Saline - IV 11/27/17 10:27 PRN PRN Hypotension during Dialysis Ceftriaxone Sodium 1 gm/ 50 mls @ 100 mls/hr 11/26/17 12:15 11/26/17 13:00 Dextrose IVPB 100 mls/hr DAILY PAMELA Administration Labetalol HCl 100 mg 11/24/17 22:00 11/26/17 10:03 Normodyne - PO 100 mg BID PAMELA Administration Labetalol HCl 10 mg 11/25/17 08:27 11/25/17 19:57 Normodyne Injection - IVPUSH 10 mg Q4H PRN Administration HYPERTENSION Morphine Sulfate 2 mg 11/24/17 19:58 11/25/17 20:46 Morphine Sulfate IVPUSH 2 mg Q4H PRN Administration PAIN LEVEL 7 - 10 Mupirocin 1 applic 11/24/17 22:00 11/26/17 10:03 Bactroban Ointment (For Decolonization) - NS 11/29/17 21:59 1 applic BID PAMELA Administration Nifedipine 30 mg 11/25/17 12:45 11/26/17 10:03 Procardia Xl - PO 30 mg DAILY PAMELA Administration Impression 1. ESRD 2. HTN 3. right subcapsular perinephric hematoma 4. anemia acute 5. obesity Plan - HD today - monitor hg - IR and urology follow up - monitor BP and increase dose of Nifedipine as needed - discussed with ICU team - pain control - will follow Dr Guerra
[2017-11-26] MEDS: ACETAMINOPHEN 325 MG TABLET (FP) PO PRN (18:01)
[2017-11-26] MEDS ORDERED: EPOETIN ALFA 2,000 UNIT/1 ML VIAL IVPUSH ONE (19:00)
[2017-11-26] MEDS ORDERED: SODIUM CHLORIDE 250 ML IV PRN (19:00)
[2017-11-26] MEDS ORDERED: EPOETIN ALFA 3,000 UNIT/1 ML ML IVPUSH ONE (19:00)
[2017-11-26] MEDS ORDERED: PT OWN MED DRAWER 7, Y5N ONE (19:19)
[2017-11-26 22:11] LABS: BASO % 0.4 % (0-2.0); EOS % 1.2 % (0-4.5); HEMATOCRIT 25.6 % (35.4-49); HEMOGLOBIN 8.7 GM/dL (11.7-16.9); LYMPH % 8.5 % (8-40); MCH 28.3 pg (25.7-33.7); MCHC 33.8 g/dl (32.0-35.9); MEAN CELL VOLUME 83.5 fl (80-96); MEAN PLT VOLUME 9.1 fl (7.5-11.1); MONO % 12.7 % (3.8-10.2); NEUT % 77.2 % (42.8-82.8); PLATELET COUNT 233 K/MM3 (134-434); RBC 3.06 M/mm3 (4.00-5.60); RDW 16.2 % (11.9-15.9); WHITE BLOOD COUNT 13.5 K/mm3 (4.0-10.0)
[2017-11-26] MEDS: CHLORHEXIDINE GLUCONATE 4% CLEANSER FOR DECOLONIZATION TP SCH (22:22)
[2017-11-27] MEDS: ACETAMINOPHEN 325 MG TABLET (FP) PO PRN ×2 (06:06→14:35)
[2017-11-27 06:38] LABS: ALBUMIN 3.3 g/dl (3.4-5.0); ANION GAP 12 (8-16); BLOOD UREA NITROGEN 39 mg/dL (7-18); CALCIUM 8.9 mg/dL (8.5-10.1); CHLORIDE 96 mmol/L (98-107); CO2 30 mmol/L (21-32); GLUCOSE,RANDOM 97 mg/dL (74-106); MAGNESIUM 2.1 mg/dL (1.8-2.4); PHOSPHOROUS 4.6 mg/dL (2.5-4.9); POTASSIUM 4.4 mmol/L (3.5-5.1); SGOT/AST 14 U/L (15-37); SGPT/ALT 15 U/L (12-78); SODIUM 138 mmol/L (136-145)
[2017-11-27 06:48] LABS: ALK PHOS 45 U/L (45-117); BILIRUBIN,TOTAL 1.8 mg/dL (0.2-1.0); TOT PROT 7.9 g/dl (6.4-8.2)
[2017-11-27 06:52] LABS: BASO % 0.6 % (0-2.0); EOS % 1.3 % (0-4.5); HEMATOCRIT 23.9 % (35.4-49); HEMOGLOBIN 8.2 GM/dL (11.7-16.9); MCH 29.2 pg (25.7-33.7); MCHC 34.2 g/dl (32.0-35.9); MEAN CELL VOLUME 85.4 fl (80-96); MEAN PLT VOLUME 9.5 fl (7.5-11.1); MONO % 15.9 % (3.8-10.2); NEUT % 73.2 % (42.8-82.8); PLATELET COUNT 220 K/MM3 (134-434); RBC 2.79 M/mm3 (4.00-5.60); WHITE BLOOD COUNT 10.9 K/mm3 (4.0-10.0)
[2017-11-27 07:48] LABS: CREATININE 10.3 mg/dL (0.7-1.3)
[2017-11-27] MEDS ORDERED: cefTRIAXone SODIUM 1 GM VIAL ONE ×2 (10:42→17:05)
[2017-11-27] MEDS ORDERED: DEXTROSE 5%-WATER - 50 ML IVPB ONE ×2 (10:42→17:05)
[2017-11-27] MEDS: CEFTRIAXONE 1 GM in DEXTROSE 5%-WATER - 50 ML IVPB SCH (10:48)
[2017-11-27] MEDS: NIFEdipine E.R. 30 MG TABLET (FP) PO SCH (10:48)
[2017-11-27] MEDS: LABETALOL HCL 100 MG TABLET (FP) PO SCH ×2 (10:48→21:20)
[2017-11-27] MEDS: MUPIROCIN 2% TOPICAL OINTMENT FOR DECOLONIZATION NS SCH (10:49)
--- NOTE | 2017-11-27 13:30 | PN ---
Teaching Attending Note Name of Resident: Shen Augustine ATTENDING PHYSICIAN STATEMENT I saw and evaluated the patient. I reviewed the resident's note and discussed the case with the resident. I agree with the resident's findings and plan as documented. SUBJECTIVE: Patient seen and examined in the ICU. Pain is better today. H/H stable. Low garde temps. OBJECTIVE: Intake & Output 11/24/17 11/25/17 11/26/17 11/27/17 23:59 23:59 23:59 23:59 Intake Total 469 40 750 50 Output Total 180 160 50 Balance 469 -140 590 0 Weight 308 lb 10.354 oz 306 lb 8 oz 307 lb 9 oz 307 lb 2 oz Last Vital Signs Temp Pulse Resp BP Pulse Ox 100.8 F H 108 H 20 157/102 96 11/27/17 06:00 11/27/17 12:49 11/27/17 12:49 11/27/17 12:49 11/27/17 09:00 Active Medications Acetaminophen (Tylenol -) 650 mg PO Q6H PRN PRN Reason: PAIN LEVEL 1-6 Last Admin: 11/27/17 06:06 Dose: 650 mg Acetaminophen (Tylenol -) 650 mg PO Q6H PRN PRN Reason: FEVER Chlorhexidine Gluconate (Hibiclens For Decolonization -) 1 applic TP HS [facility] Last Admin: 11/26/17 22:22 Dose: 1 applic Sodium Chloride (Normal Saline -) 250 mls @ 3,000 mls/hr IV PRN PRN PRN Reason: Hypotension during Dialysis Stop: 11/27/17 18:59 Ceftriaxone Sodium 1 gm/ (Dextrose) 50 mls @ 100 mls/hr IVPB DAILY [facility] Last Admin: 11/27/17 10:48 Dose: 100 mls/hr Labetalol HCl (Normodyne -) 100 mg PO BID [facility] Last Admin: 11/27/17 10:48 Dose: 100 mg Labetalol HCl (Normodyne Injection -) 10 mg IVPUSH Q4H PRN PRN Reason: HYPERTENSION Last Admin: 11/25/17 19:57 Dose: 10 mg Morphine Sulfate (Morphine Sulfate) 2 mg IVPUSH Q4H PRN PRN Reason: PAIN LEVEL 7 - 10 Last Admin: 11/25/17 20:46 Dose: 2 mg Mupirocin (Bactroban Ointment (For Decolonization) -) 1 applic NS BID [facility] Stop: 11/29/17 21:59 Last Admin: 11/27/17 10:49 Dose: 1 applic Nifedipine (Procardia Xl -) 30 mg PO DAILY [facility] Last Admin: 11/27/17 10:48 Dose: 30 mg Gen: NAD at rest Heart: S1S2, regular Lung: decreased breath sounds right base Abd: soft, nontender Ext: no edema Laboratory Results - last 24 hr 11/26/17 11/27/17 11/27/17 22:00 06:00 06:00 WBC 13.5 H 10.9 H RBC 3.06 L 2.79 L Hgb 8.7 L 8.2 L Hct 25.6 L 23.9 L MCV 83.5 85.4 MCH 28.3 29.2 MCHC 33.8 34.2 RDW 16.2 H 17.0 H Plt Count 233 220 MPV 9.1 9.5 Neutrophils % 77.2 73.2 Lymphocytes % 8.5 9.0 Monocytes % 12.7 H 15.9 H Eosinophils % 1.2 1.3 Basophils % 0.4 0.6 Sodium 138 Potassium 4.4 Chloride 96 L Carbon Dioxide 30 Anion Gap 12 BUN 39 H D Creatinine 10.3 H* D Creat Clearance w eGFR 6.03 Random Glucose 97 Calcium 8.9 Phosphorus 4.6 D Magnesium 2.1 Total Bilirubin 1.8 H AST 14 L ALT 15 Alkaline Phosphatase 45 Total Protein 7.9 Albumin 3.3 L ASSESSMENT AND PLAN: Renal Hemorrhage Hypertensive Urgency ESRD on HD Hyperkalemia UTI Right Base Atelectasis - ABX / ID consult - f/u final cultures - incentive spirometry - pain control - titrate BP meds - HD per renal - monitor H/H - Normal transfusion thresholds - urology / IR has determined that no intervention is required at this time - mechanical DVT prophylaxis - Floor Dr Ziegler Critical care time spent in reviewing chart, evaluating patient and formulating plan 36 min
--- NOTE | 2017-11-27 14:12 | PN ---
Progress Note (short form) - Note Progress Note: ID Fevers noted but not acutely ill. Says unable to take a deep breath No couph mild lower abd pain Selected Entries 11/27/17 11/27/17 06:00 12:49 Temperature 100.8 F H Pulse Rate 108 H Respiratory 20 Rate Blood Pressure 157/102 Lung Diminished BS bilaterally Cor S1 S2 Abd Soft no localized tenderness Laboratory Tests 11/27/17 11/27/17 06:00 06:00 WBC 10.9 H Hct 23.9 L Plt Count 220 Total Bilirubin 1.8 H AST 14 L ALT 15 Alkaline Phosphatase 45 Assessment Suspect fevers secondary atalectasis of right lung Cannot rule out pleural effusion and or infiltrate Less likely infected hematoma though hematoma itself could cause fever as well Plan CRP Await urine culture ? UTI CT chest vancomycin 2 grs now Continue Ceftriaxone 2 grs daily Discussed with resident Camden NOLEN Problem List - Problems (1) Fever Code(s): R50.9 - FEVER, UNSPECIFIED (2) Renal hematoma Code(s): S37.019A - MINOR CONTUSION OF UNSPECIFIED KIDNEY, INITIAL ENCOUNTER Qualifiers: Laterality: right (3) Atelectasis Code(s): J98.11 - ATELECTASIS
[2017-11-27] MEDS ORDERED: CEFTRIAXONE 1 GM in DEXTROSE 5%-WATER - 50 ML IVPB ONE ×2 (14:13→15:45)
[2017-11-27] MEDS ORDERED: NIFEdipine E.R. 30 MG TABLET (FP) PO ONE ×2 (14:30→18:50)
[2017-11-27] MEDS ORDERED: VANCOMYCIN 2,000 MG in DEXTROSE 5%-WATER - 500 ML IVPB ONE (14:45)
--- NOTE | 2017-11-27 16:11 | PN ---
Progress Note, Physician History of Present Illness: Pt seen and examined at bedside. He is awake and alert. He still experiences abdominal discomfort at times. - Current Medication List Current Medications: Active Medications Acetaminophen (Tylenol -) 650 mg PO Q6H PRN PRN Reason: PAIN LEVEL 1-6 Last Admin: 11/27/17 06:06 Dose: 650 mg Acetaminophen (Tylenol -) 650 mg PO Q6H PRN PRN Reason: FEVER Chlorhexidine Gluconate (Hibiclens For Decolonization -) 1 applic TP HS [facility] Last Admin: 11/26/17 22:22 Dose: 1 applic Sodium Chloride (Normal Saline -) 250 mls @ 3,000 mls/hr IV PRN PRN PRN Reason: Hypotension during Dialysis Stop: 11/27/17 18:59 Vancomycin HCl 2,000 mg/ (Dextrose) 500 mls @ 250 mls/hr IVPB ONCE ONE PRN Reason: Protocol Stop: 11/27/17 16:44 Ceftriaxone Sodium 2 gm/ (Dextrose) 100 mls @ 200 mls/hr IVPB DAILY [facility] Ceftriaxone Sodium 1 gm/ (Dextrose) 50 mls @ 100 mls/hr IVPB ONCE ONE Stop: 11/27/17 16:14 Labetalol HCl (Normodyne -) 100 mg PO BID [facility] Last Admin: 11/27/17 10:48 Dose: 100 mg Labetalol HCl (Normodyne Injection -) 10 mg IVPUSH Q4H PRN PRN Reason: HYPERTENSION Last Admin: 11/25/17 19:57 Dose: 10 mg Morphine Sulfate (Morphine Sulfate) 2 mg IVPUSH Q4H PRN PRN Reason: PAIN LEVEL 7 - 10 Last Admin: 11/25/17 20:46 Dose: 2 mg Mupirocin (Bactroban Ointment (For Decolonization) -) 1 applic NS BID [facility] Stop: 11/29/17 21:59 Last Admin: 11/27/17 10:49 Dose: 1 applic Nifedipine (Procardia Xl -) 60 mg PO DAILY [facility] - Objective Vital Signs: Vital Signs Temperature 100.1 F H 11/27/17 14:00 Pulse Rate 107 H 11/27/17 14:00 Respiratory Rate 20 11/27/17 14:00 Blood Pressure 147/88 11/27/17 14:00 O2 Sat by Pulse Oximetry (%) 96 11/27/17 09:00 Constitutional: Yes: Calm Eyes: Yes: Conjunctiva Clear HENT: Yes: Atraumatic Neck: Yes: Supple Cardiovascular: Yes: S1, S2 Respiratory: Yes: CTA Bilaterally Gastrointestinal: Yes: Soft, Abdomen, Obese Genitourinary: Yes: WNL Musculoskeletal: Yes: WNL Edema: No Neurological: Yes: Oriented Psychiatric: Yes: Oriented Labs: CBC, BMP 11/27/17 06:00 11/27/17 06:00 INR, PTT INR 1.29 (0.82-1.09) H 11/26/17 06:15 Problem List - Problems (1) ESRD (end stage renal disease) Code(s): N18.6 - END STAGE RENAL DISEASE (2) HTN (hypertension) Code(s): I10 - ESSENTIAL (PRIMARY) HYPERTENSION (3) Renal hematoma Code(s): S37.019A - MINOR CONTUSION OF UNSPECIFIED KIDNEY, INITIAL ENCOUNTER Qualifiers: Laterality: right (4) Retroperitoneal hematoma Code(s): K66.1 - HEMOPERITONEUM Assessment/Plan Current Medications Generic Name Dose Route Start Last Admin Trade Name Freq PRN Reason Stop Dose Admin Acetaminophen 650 mg 11/25/17 17:15 11/27/17 06:06 Tylenol - PO 650 mg Q6H PRN Administration PAIN LEVEL 1-6 Acetaminophen 650 mg 11/25/17 17:20 Tylenol - PO Q6H PRN FEVER Chlorhexidine Gluconate 1 applic 11/24/17 22:00 11/26/17 22:22 Hibiclens For Decolonization - TP 1 applic HS PAMELA Administration Sodium Chloride 250 mls @ 3,000 mls/hr 11/26/17 19:00 Normal Saline - IV 11/27/17 18:59 PRN PRN Hypotension during Dialysis Vancomycin HCl 2,000 mg/ 500 mls @ 250 mls/hr 11/27/17 14:45 Dextrose IVPB 11/27/17 16:44 ONCE ONE Protocol Ceftriaxone Sodium 2 gm/ 100 mls @ 200 mls/hr 11/28/17 10:00 Dextrose IVPB DAILY PAMELA Ceftriaxone Sodium 1 gm/ 50 mls @ 100 mls/hr 11/27/17 15:45 Dextrose IVPB 11/27/17 16:14 ONCE ONE Labetalol HCl 100 mg 11/24/17 22:00 11/27/17 10:48 Normodyne - PO 100 mg BID PAMELA Administration Labetalol HCl 10 mg 11/25/17 08:27 11/25/17 19:57 Normodyne Injection - IVPUSH 10 mg Q4H PRN Administration HYPERTENSION Morphine Sulfate 2 mg 11/24/17 19:58 11/25/17 20:46 Morphine Sulfate IVPUSH 2 mg Q4H PRN Administration PAIN LEVEL 7 - 10 Mupirocin 1 applic 11/24/17 22:00 11/27/17 10:49 Bactroban Ointment (For Decolonization) - NS 11/29/17 21:59 1 applic BID PAMELA Administration Nifedipine 60 mg 11/28/17 10:00 Procardia Xl - PO DAILY [facility] Impression 1. ESRD 2. HTN 3. right subcapsular perinephric hematoma 4. anemia acute 5. obesity Plan - will arrange for HD tomorrow - should dialyze on MWF next week to get him back on schedule - IR input appreciated, no intervention at this time. - cont to monitor hg - urology/IR follow up to see if he needs further imaging - bp better with 60 of nifedipine, increase to 90 as needed - pain control - will follow Dr Guerra
--- NOTE | 2017-11-27 17:02 | PN ---
Physical Exam: SUBJECTIVE: Patient seen and examined Pt spiked multiple fevers in last 24 hours with Tmax of 102.3. This am, pt states that abdominal pain has improved but still is worse when he moves. He denies SOB, cough, chest pain, n/v/d, dysuria, and LE pain. He is tolerating his sodium controlled diet, and he is ambulating. OBJECTIVE: Vital Signs Period Temp Pulse Resp BP Sys/Green Pulse Ox Last 24 Hr 99.5 F-100.8 F 97-115 18-23 134-166/80-102 96-96 GENERAL: The patient is awake, alert, and fully oriented, in no acute distress. HEENT: NC, AT LUNGS: poor inspiratory effort, no appreciable rales or rhonchi HEART: tachycardia, regular rhythm, systolic murmur ABDOMEN: obese abdomen, soft, minimally tender in all 4 quadrants EXTREMITIES: 2+ pulses, warm, well-perfused, no edema. NEUROLOGICAL: Cranial nerves II through XII grossly intact. Normal speech, gait not observed. Laboratory Results - last 24 hr 11/26/17 11/27/17 11/27/17 22:00 06:00 06:00 WBC 13.5 H 10.9 H RBC 3.06 L 2.79 L Hgb 8.7 L 8.2 L Hct 25.6 L 23.9 L MCV 83.5 85.4 MCH 28.3 29.2 MCHC 33.8 34.2 RDW 16.2 H 17.0 H Plt Count 233 220 MPV 9.1 9.5 Neutrophils % 77.2 73.2 Lymphocytes % 8.5 9.0 Monocytes % 12.7 H 15.9 H Eosinophils % 1.2 1.3 Basophils % 0.4 0.6 Sodium 138 Potassium 4.4 Chloride 96 L Carbon Dioxide 30 Anion Gap 12 BUN 39 H D Creatinine 10.3 H* D Creat Clearance w eGFR 6.03 Random Glucose 97 Calcium 8.9 Phosphorus 4.6 D Magnesium 2.1 Total Bilirubin 1.8 H AST 14 L ALT 15 Alkaline Phosphatase 45 Total Protein 7.9 Albumin 3.3 L Active Medications Generic Name Dose Route Start Last Admin Trade Name Freq PRN Reason Stop Dose Admin Acetaminophen 650 mg 11/25/17 17:15 11/27/17 06:06 Tylenol - PO 650 mg Q6H PRN Administration PAIN LEVEL 1-6 Acetaminophen 650 mg 11/25/17 17:20 Tylenol - PO Q6H PRN FEVER Chlorhexidine Gluconate 1 applic 11/24/17 22:00 11/26/17 22:22 Hibiclens For Decolonization - TP 1 applic HS PAMELA Administration Epoetin Jared 5,000 unit 11/28/17 16:11 Epogen - IVPUSH 11/28/17 16:12 ONCE ONE Sodium Chloride 250 mls @ 3,000 mls/hr 11/26/17 19:00 Normal Saline - IV 11/27/17 18:59 PRN PRN Hypotension during Dialysis Ceftriaxone Sodium 2 gm/ 100 mls @ 200 mls/hr 11/28/17 10:00 Dextrose IVPB DAILY PAMELA Sodium Chloride 250 mls @ 3,000 mls/hr 11/27/17 16:11 Normal Saline - IV 11/28/17 16:11 PRN PRN Hypotension during Dialysis Labetalol HCl 100 mg 11/24/17 22:00 11/27/17 10:48 Normodyne - PO 100 mg BID PAMELA Administration Labetalol HCl 10 mg 11/25/17 08:27 11/25/17 19:57 Normodyne Injection - IVPUSH 10 mg Q4H PRN Administration HYPERTENSION Morphine Sulfate 2 mg 11/24/17 19:58 11/25/17 20:46 Morphine Sulfate IVPUSH 2 mg Q4H PRN Administration PAIN LEVEL 7 - 10 Mupirocin 1 applic 11/24/17 22:00 11/27/17 10:49 Bactroban Ointment (For Decolonization) - NS 11/29/17 21:59 1 applic BID PAMELA Administration Nifedipine 60 mg 11/28/17 10:00 Procardia Xl - PO DAILY PAMELA ASSESSMENT/PLAN: 27M w/ hx of ESRD (on HD at [facility] M,W,F) and HTN who presented with right flank and abdominal pain, found to have a right subcapsular perinephric hematoma on CT and acute anemia, admitted to ICU. Nephro #Acute right perinephric hemorrhage - Hgb stable at 8.2 - pain is well controlled with morphine and APAP PRN - IR: no acute intervention required, no immediate concern for infection around site of bleed. pt to go for outpt treatment for left renal aneurysm. - Nephrology on board, Dr. Guerra. recs appreciated. - surgery on board, Dr. Figueredo, recs appreciated- no surgical intervention at this time - urology on board, recs appreciated. #ESRD - HD M,W,F CV #HTN -continue home labetalol 100 BID -per nephro, procardia increased from 30mg to 6omg -IV labetalol pushes PRN -monitor BP ID #sepsis- fever and tachycardia- possibly 2/2 PNA vs. UTI vs. hematoma -pt spiked temp of 102.3 overnight. -ID consulted, recs appreciated. vanc 2g, rocephin 2g, CRP, and CT chest to differentiate PNA vs. effusion vs. atelectasis. hematoma is less likely the cause of the fevers. -CXR: possible LLL infiltrate, right sided effusion -UA: 2+ LE, 179 wbc -Ucx: P -Bcx: negative x 24 hrs -trend temps and wbc counts -incentive spirometry -OOB FEN/ppx -no fluids as pt is on dialysis -hyperphosphatemia -sodium controlled diet -SCDs given acute bleed and acute anemia -no GI ppx indicated Dispo -full code -pt stable for transfer to floors Case discussed with attending, Dr. Ziegler. -Shen Augustine MD PGY1 ICU Team Visit type - Emergency Visit Emergency Visit: Yes ED Registration Date: 11/24/17 Care time: The patient presented to the Emergency Department on the above date and was hospitalized for further evaluation of their emergent condition. - New Patient This patient is new to me today: No - Critical Care Critical Care patient: Yes Total Critical Care Time (in minutes): 36 Critical Care Statement: The care of this patient involved high complexity decision making to prevent further life threatening deterioration of the patient 's condition and/or to evaluate & treat vital organ system(s) failure or risk of failure.
--- NOTE | 2017-11-27 18:06 | PN ---
Physical Exam: SUBJECTIVE: Patient seen and examined at the bedside. OBJECTIVE: Fevers yesterday @ 102, now with low grade temps Started on Ceftriaxone per ID Chest CT without contrast pending Chest xray shows elevated right hemidiaphragm, CT chest ordered Vital Signs Period Temp Pulse Resp BP Sys/Green Pulse Ox Last 24 Hr 99.5 F-100.8 F 97-115 18-23 134-166/80-102 96-96 GENERAL: The patient is awake, alert, and fully oriented, in no acute distress. HEAD: Normal with no signs of trauma. EYES: PERRL, extraocular movements intact, sclera anicteric, conjunctiva clear. No ptosis. ENT: Ears normal, nares patent, oropharynx clear without exudates, moist mucous membranes. NECK: Trachea midline, full range of motion, supple. LUNGS: Breath sounds equal, diminshed bilaterally ABDOMEN: Soft, nontender, nondistended, normoactive bowel sounds EXTREMITIES: no edema, left arm av fistula NEUROLOGICAL: Normal speech, gait not observed. PSYCH: Normal mood, normal affect. SKIN: Warm, dry, normal turgor, no rashes or lesions noted Laboratory Results - last 24 hr 11/26/17 11/27/17 11/27/17 22:00 06:00 06:00 WBC 13.5 H 10.9 H RBC 3.06 L 2.79 L Hgb 8.7 L 8.2 L Hct 25.6 L 23.9 L MCV 83.5 85.4 MCH 28.3 29.2 MCHC 33.8 34.2 RDW 16.2 H 17.0 H Plt Count 233 220 MPV 9.1 9.5 Neutrophils % 77.2 73.2 Lymphocytes % 8.5 9.0 Monocytes % 12.7 H 15.9 H Eosinophils % 1.2 1.3 Basophils % 0.4 0.6 Sodium 138 Potassium 4.4 Chloride 96 L Carbon Dioxide 30 Anion Gap 12 BUN 39 H D Creatinine 10.3 H* D Creat Clearance w eGFR 6.03 Random Glucose 97 Calcium 8.9 Phosphorus 4.6 D Magnesium 2.1 Total Bilirubin 1.8 H AST 14 L ALT 15 Alkaline Phosphatase 45 Total Protein 7.9 Albumin 3.3 L Active Medications Generic Name Dose Route Start Last Admin Trade Name Freq PRN Reason Stop Dose Admin Acetaminophen 650 mg 11/25/17 17:15 11/27/17 14:35 Tylenol - PO 650 mg Q6H PRN Administration PAIN LEVEL 1-6 Acetaminophen 650 mg 11/25/17 17:20 Tylenol - PO Q6H PRN FEVER Chlorhexidine Gluconate 1 applic 11/24/17 22:00 11/26/17 22:22 Hibiclens For Decolonization - TP 1 applic HS PAMELA Administration Epoetin Jared 5,000 unit 11/28/17 16:11 Epogen - IVPUSH 11/28/17 16:12 ONCE ONE Sodium Chloride 250 mls @ 3,000 mls/hr 11/26/17 19:00 Normal Saline - IV 11/27/17 18:59 PRN PRN Hypotension during Dialysis Ceftriaxone Sodium 2 gm/ 100 mls @ 200 mls/hr 11/28/17 10:00 Dextrose IVPB DAILY PAMELA Sodium Chloride 250 mls @ 3,000 mls/hr 11/27/17 16:11 Normal Saline - IV 11/28/17 16:11 PRN PRN Hypotension during Dialysis Labetalol HCl 100 mg 11/24/17 22:00 11/27/17 10:48 Normodyne - PO 100 mg BID PAMELA Administration Labetalol HCl 10 mg 11/25/17 08:27 11/25/17 19:57 Normodyne Injection - IVPUSH 10 mg Q4H PRN Administration HYPERTENSION Morphine Sulfate 2 mg 11/24/17 19:58 11/25/17 20:46 Morphine Sulfate IVPUSH 2 mg Q4H PRN Administration PAIN LEVEL 7 - 10 Mupirocin 1 applic 11/24/17 22:00 11/27/17 10:49 Bactroban Ointment (For Decolonization) - NS 11/29/17 21:59 1 applic BID PAMELA Administration Nifedipine 60 mg 11/28/17 10:00 Procardia Xl - PO DAILY [facility] ASSESSMENT/PLAN: Patient is a 27 year old male with a significant past medical history of ESRD and hypertension. He presents to the ED with right flank pain radiating around his right side to his umbilical area accompanied by nausea and vomiting. Imaging: CT/abd/pelvis: Large right subcapsular perinephric hematoma compressing the right kidney with extracapsular extension of hemorrhage into the retropeitoneum has slightly increased since CT performed earlier on same day. 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 Chest xray 11/27/2017 shows elevated right hemidiaphragm, left lower lobe consolidation Chest CT pending ID: Sepsis Fevers overnight, tmax 102.3 CT chest pending to r/o pneumonia UA reviewed ID consulted, pt received Vanco, Ceftraixone Renal Large right supcapsular perinephric hematoma compressing the right kidney with extracapsular extension of hemorrhage into the retropeitoneum Monitor hmg/hct Patient has been transfused with both platelets and prbc during admission hmg/hct low stable Morphine prn Followed by surgery, no surgical interventions but will close monitor Urology following, further recommendations appreciated Urology/renal following ESRD, chronic On dialysis via left arm fistula: MWF Card: Hypertension, BP elevated On Labetalol 100mg BID, Procardia XL PO daily increased to 60mg, labetalol mg pushes q 4mg prn Monitor F.E.N. Fluids: PO adequate Electrolytes: monitor Nutrition: renal diet Prophy: GI: deferred DVT: contraindicated for bleeding risk Visit type - Emergency Visit Emergency Visit: Yes ED Registration Date: 11/24/17 Care time: The patient presented to the Emergency Department on the above date and was hospitalized for further evaluation of their emergent condition. - New Patient This patient is new to me today: No - Critical Care Critical Care patient: Yes Total Critical Care Time (in minutes): 40 Critical Care Statement: The care of this patient involved high complexity decision making to prevent further life threatening deterioration of the patient 's condition and/or to evaluate & treat vital organ system(s) failure or risk of failure.
--- NOTE | 2017-11-27 19:10 | CONS ---
INFECTIOUS DISEASE CONSULTATION DATE OF CONSULTATION: DATE OF DICTATION: 11/27/2017 This is a 27-year-old male with end-stage renal disease, who I am asked to see for evaluation of fever in the intensive care unit. He presented to the hospital with sudden onset of abdominal and lower abdominal discomfort with mild nausea. CT imaging was obtained which revealed a right renal subcapsular hematoma and retroperitoneal hematoma on imaging. He was not on any anticoagulations nor did he have any preceding history of trauma. I am asked to see him now as he has been experiencing intermittent fevers since shortly after he arrived. He is alert and awake, and his major complaint right now is difficulty taking a deep breath. He denies any cough, chills and also complains of mild lower abdominal discomfort. He has no diarrhea and no urinary complaints. Blood cultures were obtained, and he was given ceftriaxone. PAST MEDICAL HISTORY: Includes end-stage kidney disease, 3 time a week dialysis, and hypertension. MEDICATIONS: Include ceftriaxone, Normodyne, Procardia XL. SOCIAL HISTORY: Nonsmoker. No history of substance abuse. HIV tested previously negative. FAMILY HISTORY: Reviewed, noncontributory. REVIEW OF SYSTEMS: Respiratory: Pleuritic chest pain. Positive shortness of breath. No cough, hemoptysis. Cardiac: No chest pain, palpitations, syncope. Gastrointestinal: Lower abdominal discomfort. No vomiting, nausea, blood per rectum, hematemesis. Genitourinary: No dysuria, hematuria, urinary frequency. PHYSICAL EXAMINATION: General: Revealed a heavy-set male, 307 pounds. Vital Signs: Temperature 100.8, pulse 108, blood pressure 157/102, respirations 20. Neck: Supple. Lungs: Diminished breath sounds bilaterally. Heart: S1, S2. Regular rhythm. Distant heart sounds. No audible murmur. Abdomen: Positive bowel sounds. Not distended, soft, mild lower abdominal discomfort without guarding or rebound. Extremities: Revealed a fistula in the left arm. DIAGNOSTIC DATA: The white count was 10.9, hemoglobin 8.2, hematocrit 23.9, platelets 220. No left shift is present. INR 1.29. Chemistries consistent with end-stage renal disease. Bilirubin 1.8. AST 14, alkaline phosphatase 45. Urinalysis with 179 WBCs, 2+ leukocyte esterase. Two sets of blood cultures thus far dated November 25: Negative. Urine culture: No growth. ASSESSMENT: A 27-year-old male with end-stage renal disease status post retroperitoneal hematoma, presents with fever, difficulty taking a deep breath, and a chest x-ray which is a portable film, shows what may be atelectasis and/or pleural effusion in the right lower lobe. It would be difficult to determine given that x-ray whether or not he may also have pneumonia to account for his fever. Blood and urine cultures are no growth. As discussed with the house staff, would empirically treat him with 2 g of vancomycin based on his history of end-stage renal disease and dialysis, continue ceftriaxone 2 g daily as ordered, and lastly, get CRP and CT imaging of the chest to differentiate the presence of pleural effusion and/or pneumonia versus atelectasis. MARAH PIERRE M.D. [id number]
--- NOTE | 2017-11-27 19:23 | PN ---
Progress Note (short form) - Note Progress Note: No new events reported Pain controlled Vital Signs Period Temp Pulse Resp BP Sys/Green Pulse Ox Last 24 Hr 99.5 F-100.8 F 97-115 18-23 134-166/82-102 96-96 Abd soft CBC, BMP 11/27/17 06:00 11/27/17 06:00 Serial H/H Management per IR/Urology Problem List - Problems (1) Renal hematoma Code(s): S37.019A - MINOR CONTUSION OF UNSPECIFIED KIDNEY, INITIAL ENCOUNTER Qualifiers: Laterality: right (2) Retroperitoneal hematoma Code(s): K66.1 - HEMOPERITONEUM
[2017-11-27] MEDS ORDERED: morphine SULFATE 4 MG/ML VIAL IVPUSH PRN (20:11)
[2017-11-27] MEDS ORDERED: LABETALOL HCL 5 MG/1 ML (100MG/20 ML VIAL) IVPUSH PRN (20:11)
[2017-11-27] MEDS ORDERED: ACETAMINOPHEN 325 MG TABLET (FP) PO PRN (20:11)
[2017-11-27] MEDS ORDERED: HEMOQUE TEST 1 EACH EACH ONE (21:15)
[2017-11-27] MEDS ORDERED: CHLORHEXIDINE GLUCONATE 4% CLEANSER FOR DECOLONIZATION TP SCH (22:00)
[2017-11-27] MEDS ORDERED: MUPIROCIN 2% TOPICAL OINTMENT FOR DECOLONIZATION NS SCH (22:00)
[2017-11-28] MEDS: ACETAMINOPHEN 325 MG TABLET (FP) PO PRN (02:03)
[2017-11-28 07:28] LABS: BASO % 0.7 % (0-2.0); EOS % 3.8 % (0-4.5); HEMATOCRIT 26.3 % (35.4-49); HEMOGLOBIN 8.6 GM/dL (11.7-16.9); MCHC 32.7 g/dl (32.0-35.9); MEAN CELL VOLUME 85.5 fl (80-96); MEAN PLT VOLUME 9.2 fl (7.5-11.1); MONO % 15.1 % (3.8-10.2); NEUT % 68.4 % (42.8-82.8); PLATELET COUNT 269 K/MM3 (134-434); RBC 3.08 M/mm3 (4.00-5.60); RDW 16.2 % (11.9-15.9); WHITE BLOOD COUNT 11.2 K/mm3 (4.0-10.0)
[2017-11-28 07:47] LABS: ALBUMIN 3.5 g/dl (3.4-5.0); ANION GAP 16 (8-16); BILIRUBIN,TOTAL 1.5 mg/dL (0.2-1.0); BLOOD UREA NITROGEN 53 mg/dL (7-18); CALCIUM 9.1 mg/dL (8.5-10.1); CHLORIDE 93 mmol/L (98-107); CO2 27 mmol/L (21-32); GLUCOSE,RANDOM 92 mg/dL (74-106); MAGNESIUM 2.3 mg/dL (1.8-2.4); PHOSPHOROUS 7.1 mg/dL (2.5-4.9); SGOT/AST 18 U/L (15-37); SGPT/ALT 18 U/L (12-78); SODIUM 136 mmol/L (136-145)
[2017-11-28 07:54] LABS: ALK PHOS 47 U/L (45-117); TOT PROT 8.4 g/dl (6.4-8.2)
[2017-11-28] MEDS ORDERED: EPOETIN ALFA 2,000 UNIT, EPOETIN ALFA 3,000 UNIT IVPUSH ONE (08:00)
[2017-11-28 08:41] LABS: CREATININE 13.9 mg/dL (0.7-1.3)
[2017-11-28] MEDS ORDERED: DEXTROSE 5%-WATER 100 ML IVPB ONE (12:24)
[2017-11-28] MEDS: LABETALOL HCL 100 MG TABLET (FP) PO SCH ×2 (12:29→21:37)
[2017-11-28] MEDS: CEFTRIAXONE 2 GM in DEXTROSE 5%-WATER 100 ML IVPB SCH (12:29)
[2017-11-28] MEDS: NIFEdipine E.R 60 MG TABLET (UD) PO SCH (12:29)
--- NOTE | 2017-11-28 12:50 | PN ---
Progress Note (short form) - Note Progress Note: continued right flank pain just returned from HD and ct scan- results pending Vital Signs Period Temp Pulse Resp BP Sys/Green Pulse Ox Last 24 Hr 98.5 F-100.1 F 94-115 18-20 120-171/77-114 96 cor-rrr lungs decreased bs at bases abd soft,nt ext no edema CBC, BMP 11/28/17 06:30 11/28/17 06:30 Microbiology 11/25/17 13:13 Blood - Peripheral Venous Blood Culture - Preliminary NO GROWTH OBTAINED AFTER 48 HOURS, INCUBATION TO CONTINUE FOR 3 DAYS. 11/25/17 12:33 Blood - Peripheral Venous Blood Culture - Preliminary NO GROWTH OBTAINED AFTER 48 HOURS, INCUBATION TO CONTINUE FOR 3 DAYS. 11/25/17 18:09 Urine - Urine Clean Catch Urine Culture - Final NO GROWTH OBTAINED a/p fevers- trending down s/p right perinephric hemorrhage f/u chest ct continue ceftriaxone for now suspect fever from acute hematoma but will wait for ct to r/o pneumonia
--- NOTE | 2017-11-28 15:54 | PN ---
Progress Note (short form) - Note Progress Note: Subjective: The patient was seen and examined at the bedside, he states his right flank pain comes and goes Current Medications Generic Name Dose Route Start Last Admin Trade Name Anna PRN Reason Stop Dose Admin Acetaminophen 650 mg 11/27/17 20:11 11/28/17 02:03 Tylenol - PO 650 mg Q6H PRN Administration PAIN LEVEL 1-6 Acetaminophen 650 mg 11/27/17 20:11 Tylenol - PO Q6H PRN FEVER Ceftriaxone Sodium 2 gm/ 100 mls @ 200 mls/hr 11/28/17 10:00 11/28/17 12:29 Dextrose IVPB 200 mls/hr DAILY PAMELA Administration Sodium Chloride 250 mls @ 3,000 mls/hr 11/28/17 16:11 Normal Saline - IV PRN PRN Hypotension during Dialysis Labetalol HCl 100 mg 11/27/17 22:00 11/28/17 12:29 Normodyne - PO 100 mg BID PAMELA Administration Labetalol HCl 10 mg 11/27/17 20:11 Normodyne Injection - IVPUSH Q4H PRN HYPERTENSION Morphine Sulfate 2 mg 11/27/17 20:11 Morphine Sulfate IVPUSH Q4H PRN PAIN LEVEL 7 - 10 Nifedipine 60 mg 11/28/17 10:00 11/28/17 12:29 Procardia Xl - PO 60 mg DAILY PAMELA Administration Objective: Vital Signs Period Temp Pulse Resp BP Sys/Green Pulse Ox Last 24 Hr 98.5 F-99.9 F 94-115 18-20 120-171/77-114 96-96 Physical Exam: GENERAL: Awake, alert, and fully oriented, in no acute distress. LUNGS: Breath sounds equal, clear to auscultation bilaterally. No wheezes, and no crackles. No accessory muscle use. HEART: Regular rate and rhythm, normal S1 and S2 without murmur, rub or gallop. ABDOMEN: Soft, nontender, not distended, normoactive bowel sounds, no guarding, no rebound, no masses. No hepatomegaly or splenomegaly. MUSCULOSKELETAL: Normal range of motion at all joints. No bony deformities or tenderness. UPPER EXTREMITIES: Left arm AV fistula, + thrill, + bruit. 2+ pulses LOWER EXTREMITIES: 2+ pulses, warm, well-perfused. No calf tenderness NEUROLOGICAL: Cranial nerves II-XII intact. Normal speech. Gait not observed PSYCHIATRIC: Cooperative. Good eye contact. Appropriate mood and affect. SKIN: Warm, dry, normal turgor, no rashes or lesions noted, normal capillary refill. CBCD WBC 11.2 K/mm3 (4.0-10.0) H 11/28/17 06:30 RBC 3.08 M/mm3 (4.00-5.60) L 11/28/17 06:30 Hgb 8.6 GM/dL (11.7-16.9) L 11/28/17 06:30 Hct 26.3 % (35.4-49) L 11/28/17 06:30 MCV 85.5 fl (80-96) 11/28/17 06:30 MCHC 32.7 g/dl (32.0-35.9) 11/28/17 06:30 RDW 16.2 % (11.9-15.9) H 11/28/17 06:30 Plt Count 269 K/MM3 (134-434) D 11/28/17 06:30 MPV 9.2 fl (7.5-11.1) 11/28/17 06:30 CMP Sodium 136 mmol/L (136-145) 11/28/17 06:30 Potassium 4.0 mmol/L (3.5-5.1) 11/28/17 06:30 Chloride 93 mmol/L (98-107) L 11/28/17 06:30 Carbon Dioxide 27 mmol/L (21-32) 11/28/17 06:30 Anion Gap 16 (8-16) 11/28/17 06:30 BUN 53 mg/dL (7-18) H D 11/28/17 06:30 Creatinine 13.9 mg/dL (0.7-1.3) H* D 11/28/17 06:30 Creat Clearance w eGFR 4.27 (>60) 11/28/17 06:30 Random Glucose 92 mg/dL (74-106) 11/28/17 06:30 Calcium 9.1 mg/dL (8.5-10.1) 11/28/17 06:30 Total Bilirubin 1.5 mg/dL (0.2-1.0) H 11/28/17 06:30 AST 18 U/L (15-37) D 11/28/17 06:30 ALT 18 U/L (12-78) 11/28/17 06:30 Alkaline Phosphatase 47 U/L (45-117) 11/28/17 06:30 Total Protein 8.4 g/dl (6.4-8.2) H 11/28/17 06:30 Albumin 3.5 g/dl (3.4-5.0) 11/28/17 06:30 Microbiology 11/25/17 13:13 Blood - Peripheral Venous Blood Culture - Preliminary NO GROWTH OBTAINED AFTER 72 HOURS, INCUBATION TO CONTINUE FOR 2 DAYS. 11/25/17 12:33 Blood - Peripheral Venous Blood Culture - Preliminary NO GROWTH OBTAINED AFTER 72 HOURS, INCUBATION TO CONTINUE FOR 2 DAYS. 11/25/17 18:09 Urine - Urine Clean Catch Urine Culture - Final NO GROWTH OBTAINED Assessment: This is a 27 year old male with PMHx of ESRD (on HD at [facility] M ,W,F), HTN, who presented to the ED with right flank pain radiating around his right side to his umbilical area, nausea, one episode of vomiting. Plan: 1) Sepsis 2/2 pneumonia vs. acute hematoma - Chest CT with right lower lobe consolidation - Continue Ceftriaxone - Appreciate ID consult 2) Acute right perinephric hemorrhage - Possible intrarenal hemorrhage as well - Hgb remains stable - Pain management - F/u urology/IR to see if any further imaging required - Appreciate surgery consult: discussed with Dr. Figueredo, no surgical intervention at this time - Appreciate urology consult 3) ESRD - Tolerated HD today - Will start M,W,F schedule again next week - Appreciate nephrology consult 4) F/E/N: - Renal Diet 5) Prophylaxis: - Hold all chemical DVT prophylaxis 2/2 acute bleed - SCDs bilaterally 6) Dispo: - Requires continued inpatient care CODE STATUS: FULL CODE Visit type - Emergency Visit Emergency Visit: Yes ED Registration Date: 11/24/17 Care time: The patient presented to the Emergency Department on the above date and was hospitalized for further evaluation of their emergent condition. - New Patient This patient is new to me today: No - Critical Care Critical Care patient: No
[2017-11-28] MEDS ORDERED: EPOETIN ALFA 2,000 UNIT/1 ML VIAL IVPUSH ONE (16:11)
[2017-11-28] MEDS ORDERED: SODIUM CHLORIDE 250 ML IV PRN (16:11)
--- NOTE | 2017-11-28 23:15 | PN ---
Progress Note (short form) - Note Progress Note: 1. ESRD 2. HTN 3. right subcapsular perinephric hematoma 4. anemia acute 5. obesity Current Medications Acetaminophen (Tylenol -) 650 mg PO Q6H PRN PRN Reason: PAIN LEVEL 1-6 Last Admin: 11/28/17 02:03 Dose: 650 mg Acetaminophen (Tylenol -) 650 mg PO Q6H PRN PRN Reason: FEVER Ceftriaxone Sodium 2 gm/ (Dextrose) 100 mls @ 200 mls/hr IVPB DAILY [facility] Last Admin: 11/28/17 12:29 Dose: 200 mls/hr Sodium Chloride (Normal Saline -) 250 mls @ 3,000 mls/hr IV PRN PRN PRN Reason: Hypotension during Dialysis Labetalol HCl (Normodyne -) 100 mg PO BID [facility] Last Admin: 11/28/17 21:37 Dose: 100 mg Labetalol HCl (Normodyne Injection -) 10 mg IVPUSH Q4H PRN PRN Reason: HYPERTENSION Morphine Sulfate (Morphine Sulfate) 2 mg IVPUSH Q4H PRN PRN Reason: PAIN LEVEL 7 - 10 Nifedipine (Procardia Xl -) 60 mg PO DAILY [facility] Last Admin: 11/28/17 12:29 Dose: 60 mg Last Vital Signs Temp Pulse Resp BP Pulse Ox 99.2 F 118 H 20 160/91 96 11/28/17 17:00 11/28/17 17:00 11/28/17 17:00 11/28/17 17:00 11/28/17 09:00 CBC, BMP 11/28/17 06:30 11/28/17 06:30 Plan - stable on dialysis will follow for hd on thursday
[2017-11-29] MEDS: ACETAMINOPHEN 325 MG TABLET (FP) PO PRN (03:40)
[2017-11-29 07:38] LABS: BASO % 1.1 % (0-2.0); EOS % 4.7 % (0-4.5); HEMATOCRIT 24.6 % (35.4-49); HEMOGLOBIN 8.4 GM/dL (11.7-16.9); LYMPH % 13.3 % (8-40); MCH 28.7 pg (25.7-33.7); MEAN CELL VOLUME 84.6 fl (80-96); MEAN PLT VOLUME 8.8 fl (7.5-11.1); MONO % 14.6 % (3.8-10.2); NEUT % 66.3 % (42.8-82.8); PLATELET COUNT 266 K/MM3 (134-434); RBC 2.91 M/mm3 (4.00-5.60); RDW 15.8 % (11.9-15.9); WHITE BLOOD COUNT 9.2 K/mm3 (4.0-10.0)
[2017-11-29 08:12] LABS: CHLORIDE 98 mmol/L (98-107); SODIUM 138 mmol/L (136-145)
[2017-11-29 08:26] LABS: ALBUMIN 3.1 g/dl (3.4-5.0); ALK PHOS 43 U/L (45-117); ANION GAP 10 (8-16); BLOOD UREA NITROGEN 45 mg/dL (7-18); CALCIUM 8.8 mg/dL (8.5-10.1); CO2 30 mmol/L (21-32); GLUCOSE,RANDOM 85 mg/dL (74-106); SGOT/AST 22 U/L (15-37); SGPT/ALT 23 U/L (12-78); TOT PROT 7.7 g/dl (6.4-8.2)
--- NOTE | 2017-11-29 09:06 | PN ---
Progress Note (short form) - Note Progress Note: Subjective: The patient was seen and examined at the bedside, he reports feeling better than he did yesterday, denies any flank pain Current Medications Generic Name Dose Route Start Last Admin Trade Name Anna PRN Reason Stop Dose Admin Acetaminophen 650 mg 11/27/17 20:11 11/29/17 03:40 Tylenol - PO 650 mg Q6H PRN Administration PAIN LEVEL 1-6 Acetaminophen 650 mg 11/27/17 20:11 Tylenol - PO Q6H PRN FEVER Ceftriaxone Sodium 2 gm/ 100 mls @ 200 mls/hr 11/28/17 10:00 11/28/17 12:29 Dextrose IVPB 200 mls/hr DAILY PAMELA Administration Sodium Chloride 250 mls @ 3,000 mls/hr 11/28/17 16:11 Normal Saline - IV PRN PRN Hypotension during Dialysis Labetalol HCl 100 mg 11/27/17 22:00 11/28/17 21:37 Normodyne - PO 100 mg BID PAMELA Administration Labetalol HCl 10 mg 11/27/17 20:11 Normodyne Injection - IVPUSH Q4H PRN HYPERTENSION Morphine Sulfate 2 mg 11/27/17 20:11 Morphine Sulfate IVPUSH Q4H PRN PAIN LEVEL 7 - 10 Nifedipine 60 mg 11/28/17 10:00 11/28/17 12:29 Procardia Xl - PO 60 mg DAILY PAMELA Administration Objective: Vital Signs Period Temp Pulse Resp BP Sys/Green Pulse Ox Last 24 Hr 98.7 F-99.9 F 94-118 18-20 130-169/77-107 96 Physical Exam: GENERAL: Awake, alert, and fully oriented, in no acute distress. LUNGS: Breath sounds equal, clear to auscultation bilaterally. No wheezes, and no crackles. No accessory muscle use. HEART: Regular rate and rhythm, normal S1 and S2 without murmur, rub or gallop. ABDOMEN: Soft, nontender, not distended, normoactive bowel sounds, no guarding, no rebound, no masses. No hepatomegaly or splenomegaly. MUSCULOSKELETAL: Normal range of motion at all joints. No bony deformities or tenderness. UPPER EXTREMITIES: Left arm AV fistula, + thrill, + bruit. 2+ pulses LOWER EXTREMITIES: 2+ pulses, warm, well-perfused. No calf tenderness NEUROLOGICAL: Cranial nerves II-XII intact. Normal speech. Gait not observed PSYCHIATRIC: Cooperative. Good eye contact. Appropriate mood and affect. SKIN: Warm, dry, normal turgor, no rashes or lesions noted, normal capillary refill. CBCD WBC 9.2 K/mm3 (4.0-10.0) 11/29/17 06:30 RBC 2.91 M/mm3 (4.00-5.60) L 11/29/17 06:30 Hgb 8.4 GM/dL (11.7-16.9) L 11/29/17 06:30 Hct 24.6 % (35.4-49) L 11/29/17 06:30 MCV 84.6 fl (80-96) 11/29/17 06:30 MCHC 34.0 g/dl (32.0-35.9) 11/29/17 06:30 RDW 15.8 % (11.9-15.9) 11/29/17 06:30 Plt Count 266 K/MM3 (134-434) 11/29/17 06:30 MPV 8.8 fl (7.5-11.1) 11/29/17 06:30 CMP Sodium 136 mmol/L (136-145) 11/28/17 06:30 Potassium 4.0 mmol/L (3.5-5.1) 11/28/17 06:30 Chloride 93 mmol/L (98-107) L 11/28/17 06:30 Carbon Dioxide 27 mmol/L (21-32) 11/28/17 06:30 Anion Gap 16 (8-16) 11/28/17 06:30 BUN 53 mg/dL (7-18) H D 11/28/17 06:30 Creatinine 13.9 mg/dL (0.7-1.3) H* D 11/28/17 06:30 Creat Clearance w eGFR 4.27 (>60) 11/28/17 06:30 Random Glucose 92 mg/dL (74-106) 11/28/17 06:30 Calcium 9.1 mg/dL (8.5-10.1) 11/28/17 06:30 Total Bilirubin 1.5 mg/dL (0.2-1.0) H 11/28/17 06:30 AST 18 U/L (15-37) D 11/28/17 06:30 ALT 18 U/L (12-78) 11/28/17 06:30 Alkaline Phosphatase 47 U/L (45-117) 11/28/17 06:30 Total Protein 8.4 g/dl (6.4-8.2) H 11/28/17 06:30 Albumin 3.5 g/dl (3.4-5.0) 11/28/17 06:30 Microbiology 11/25/17 13:13 Blood - Peripheral Venous Blood Culture - Preliminary NO GROWTH OBTAINED AFTER 72 HOURS, INCUBATION TO CONTINUE FOR 2 DAYS. 11/25/17 12:33 Blood - Peripheral Venous Blood Culture - Preliminary NO GROWTH OBTAINED AFTER 72 HOURS, INCUBATION TO CONTINUE FOR 2 DAYS. 11/25/17 18:09 Urine - Urine Clean Catch Urine Culture - Final NO GROWTH OBTAINED Assessment: This is a 27 year old male with PMHx of ESRD (on HD at [facility] M ,W,F), HTN, who presented to the ED with right flank pain radiating around his right side to his umbilical area, nausea, one episode of vomiting. Plan: 1) Sepsis 2/2 pneumonia vs. acute hematoma - Chest CT with right lower lobe consolidation - Continue Ceftriaxone - Appreciate ID consult 2) Acute right perinephric hemorrhage - Possible intrarenal hemorrhage as well - Hgb remains stable - Pain management - F/u urology/IR to see if any further imaging required - Appreciate surgery consult: discussed with Dr. Figueredo, no surgical intervention at this time - Appreciate urology consult 3) ESRD - Next HD on Thursday - Will start M,W,F schedule again next week - Appreciate nephrology consult 4) F/E/N: - Renal Diet 5) Prophylaxis: - Hold all chemical DVT prophylaxis 2/2 acute bleed - SCDs bilaterally 6) Dispo: - Requires continued inpatient care CODE STATUS: FULL CODE Visit type - Emergency Visit Emergency Visit: Yes ED Registration Date: 11/24/17 Care time: The patient presented to the Emergency Department on the above date and was hospitalized for further evaluation of their emergent condition. - New Patient This patient is new to me today: No - Critical Care Critical Care patient: No
[2017-11-29 09:10] LABS: CREATININE 11.6 mg/dL (0.7-1.3)
[2017-11-29] MEDS ORDERED: DEXTROSE 5%-WATER 100 ML IVPB ONE (09:27)
[2017-11-29] MEDS: LABETALOL HCL 100 MG TABLET (FP) PO SCH ×2 (09:39→21:42)
[2017-11-29] MEDS: NIFEdipine E.R 60 MG TABLET (UD) PO SCH (09:39)
[2017-11-29] MEDS: CEFTRIAXONE 2 GM in DEXTROSE 5%-WATER 100 ML IVPB SCH (09:39)
--- NOTE | 2017-11-29 21:04 | PN ---
Progress Note (short form) - Note Progress Note: 1. ESRD 2. HTN 3. right subcapsular perinephric hematoma 4. anemia acute 5. obesity Current Medications Acetaminophen (Tylenol -) 650 mg PO Q6H PRN PRN Reason: PAIN LEVEL 1-6 Last Admin: 11/29/17 03:40 Dose: 650 mg Acetaminophen (Tylenol -) 650 mg PO Q6H PRN PRN Reason: FEVER Ceftriaxone Sodium 2 gm/ (Dextrose) 100 mls @ 200 mls/hr IVPB DAILY [facility] Last Admin: 11/29/17 09:39 Dose: 200 mls/hr Sodium Chloride (Normal Saline -) 250 mls @ 3,000 mls/hr IV PRN PRN PRN Reason: Hypotension during Dialysis Labetalol HCl (Normodyne -) 100 mg PO BID [facility] Last Admin: 11/29/17 09:39 Dose: 100 mg Labetalol HCl (Normodyne Injection -) 10 mg IVPUSH Q4H PRN PRN Reason: HYPERTENSION Morphine Sulfate (Morphine Sulfate) 2 mg IVPUSH Q4H PRN PRN Reason: PAIN LEVEL 7 - 10 Nifedipine (Procardia Xl -) 60 mg PO DAILY [facility] Last Admin: 11/29/17 09:39 Dose: 60 mg pain is less and is tolerable Last Vital Signs Temp Pulse Resp BP Pulse Ox 99.2 F 106 H 20 150/80 98 11/29/17 14:00 11/29/17 14:00 11/29/17 21:00 11/29/17 14:00 11/29/17 21:00 lungs clear heart reg abd soft nontender ext no edema CBC, BMP 11/28/17 06:30 11/28/17 06:30 Plan - will arrange for HD tomorrow on MWF schedule
[2017-11-30 08:45] LABS: BASO % 0.9 % (0-2.0); EOS % 4.4 % (0-4.5); HEMATOCRIT 23.5 % (35.4-49); LYMPH % 10.1 % (8-40); MCH 28.6 pg (25.7-33.7); MEAN CELL VOLUME 83.9 fl (80-96); MEAN PLT VOLUME 8.7 fl (7.5-11.1); MONO % 11.2 % (3.8-10.2); NEUT % 73.4 % (42.8-82.8); PLATELET COUNT 278 K/MM3 (134-434); RDW 16.3 % (11.9-15.9); WHITE BLOOD COUNT 9.7 K/mm3 (4.0-10.0)
[2017-11-30 09:01] LABS: ALBUMIN 3.1 g/dl (3.4-5.0); ANION GAP 9 (8-16); BILIRUBIN,TOTAL 0.8 mg/dL (0.2-1.0); BLOOD UREA NITROGEN 44 mg/dL (7-18); CALCIUM 8.4 mg/dL (8.5-10.1); CHLORIDE 102 mmol/L (98-107); CO2 29 mmol/L (21-32); GLUCOSE,RANDOM 109 mg/dL (74-106); POTASSIUM 3.6 mmol/L (3.5-5.1); SGOT/AST 20 U/L (15-37); SGPT/ALT 21 U/L (12-78); SODIUM 140 mmol/L (136-145); TOT PROT 7.6 g/dl (6.4-8.2)
[2017-11-30 09:07] LABS: ALK PHOS 45 U/L (45-117)
[2017-11-30 09:15] LABS: CREATININE 11.1 mg/dL (0.7-1.3)
--- NOTE | 2017-11-30 10:14 | PN ---
Progress Note (short form) - Note Progress Note: Subjective: The patient was seen and examined at the bedside, he denies any complaints at this time Call placed to Dr. Franklin (IR) regarding further imaging recommendations of the right perinephric hematoma Current Medications Generic Name Dose Route Start Last Admin Trade Name Freq PRN Reason Stop Dose Admin Acetaminophen 650 mg 11/27/17 20:11 11/29/17 03:40 Tylenol - PO 650 mg Q6H PRN Administration PAIN LEVEL 1-6 Acetaminophen 650 mg 11/27/17 20:11 Tylenol - PO Q6H PRN FEVER Ceftriaxone Sodium 2 gm/ 100 mls @ 200 mls/hr 11/28/17 10:00 11/29/17 09:39 Dextrose IVPB 200 mls/hr DAILY PAMELA Administration Sodium Chloride 250 mls @ 3,000 mls/hr 11/28/17 16:11 Normal Saline - IV PRN PRN Hypotension during Dialysis Labetalol HCl 100 mg 11/27/17 22:00 11/29/17 21:42 Normodyne - PO 100 mg BID PAMELA Administration Labetalol HCl 10 mg 11/27/17 20:11 Normodyne Injection - IVPUSH Q4H PRN HYPERTENSION Morphine Sulfate 2 mg 11/27/17 20:11 Morphine Sulfate IVPUSH Q4H PRN PAIN LEVEL 7 - 10 Nifedipine 60 mg 11/28/17 10:00 11/29/17 09:39 Procardia Xl - PO 60 mg DAILY PAMELA Administration Objective: Vital Signs Period Temp Pulse Resp BP Sys/Green Pulse Ox Last 24 Hr 98.4 F-99.2 F 61-106 18-20 131-164/80-99 98-98 Physical Exam: GENERAL: Awake, alert, and fully oriented, in no acute distress. LUNGS: Breath sounds equal, clear to auscultation bilaterally. No wheezes, and no crackles. No accessory muscle use. HEART: Regular rate and rhythm, normal S1 and S2 without murmur, rub or gallop. ABDOMEN: Soft, nontender, not distended, normoactive bowel sounds, no guarding, no rebound, no masses. No hepatomegaly or splenomegaly. MUSCULOSKELETAL: Normal range of motion at all joints. No bony deformities or tenderness. UPPER EXTREMITIES: Left arm AV fistula, + thrill, + bruit. 2+ pulses LOWER EXTREMITIES: 2+ pulses, warm, well-perfused. No calf tenderness NEUROLOGICAL: Cranial nerves II-XII intact. Normal speech. Gait not observed PSYCHIATRIC: Cooperative. Good eye contact. Appropriate mood and affect. SKIN: Warm, dry, normal turgor, no rashes or lesions noted, normal capillary refill. CBCD WBC 9.7 K/mm3 (4.0-10.0) 11/30/17 07:50 RBC 2.80 M/mm3 (4.00-5.60) L 11/30/17 07:50 Hgb 8.0 GM/dL (11.7-16.9) L 11/30/17 07:50 Hct 23.5 % (35.4-49) L 11/30/17 07:50 MCV 83.9 fl (80-96) 11/30/17 07:50 MCHC 34.0 g/dl (32.0-35.9) 11/30/17 07:50 RDW 16.3 % (11.9-15.9) H 11/30/17 07:50 Plt Count 278 K/MM3 (134-434) 11/30/17 07:50 MPV 8.7 fl (7.5-11.1) 11/30/17 07:50 CMP Sodium 140 mmol/L (136-145) 11/30/17 07:50 Potassium 3.6 mmol/L (3.5-5.1) 11/30/17 07:50 Chloride 102 mmol/L (98-107) 11/30/17 07:50 Carbon Dioxide 29 mmol/L (21-32) 11/30/17 07:50 Anion Gap 9 (8-16) 11/30/17 07:50 BUN 44 mg/dL (7-18) H 11/30/17 07:50 Creatinine 11.1 mg/dL (0.7-1.3) H* 11/30/17 07:50 Creat Clearance w eGFR 5.53 (>60) 11/30/17 07:50 Random Glucose 109 mg/dL (74-106) H D 11/30/17 07:50 Calcium 8.4 mg/dL (8.5-10.1) L 11/30/17 07:50 Total Bilirubin 0.8 mg/dL (0.2-1.0) 11/30/17 07:50 AST 20 U/L (15-37) 11/30/17 07:50 ALT 21 U/L (12-78) 11/30/17 07:50 Alkaline Phosphatase 45 U/L (45-117) 11/30/17 07:50 Total Protein 7.6 g/dl (6.4-8.2) 11/30/17 07:50 Albumin 3.1 g/dl (3.4-5.0) L 11/30/17 07:50 Microbiology 11/25/17 13:13 Blood - Peripheral Venous Blood Culture - Preliminary NO GROWTH OBTAINED AFTER 96 HOURS, INCUBATION TO CONTINUE FOR 1 DAYS. 11/25/17 12:33 Blood - Peripheral Venous Blood Culture - Preliminary NO GROWTH OBTAINED AFTER 96 HOURS, INCUBATION TO CONTINUE FOR 1 DAYS. 11/25/17 18:09 Urine - Urine Clean Catch Urine Culture - Final NO GROWTH OBTAINED Assessment: This is a 27 year old male with PMHx of ESRD (on HD at [facility] M ,W,F), HTN, who presented to the ED with right flank pain radiating around his right side to his umbilical area, nausea, one episode of vomiting. Plan: 1) Sepsis 2/2 pneumonia vs. acute hematoma - Chest CT with right lower lobe consolidation - Continue Ceftriaxone - Appreciate ID consult 2) Acute right perinephric hemorrhage - Possible intrarenal hemorrhage as well - Hgb remains stable - Pain management - F/u urology/IR to see if any further imaging required: Awaiting call back from Dr. Molina - Appreciate surgery consult: discussed with Dr. Figueredo, no surgical intervention at this time - Appreciate urology consult 3) ESRD - Tolerating HD today - Appreciate nephrology consult 4) F/E/N: - Renal Diet 5) Prophylaxis: - Hold all chemical DVT prophylaxis 2/2 acute bleed - SCDs bilaterally 6) Dispo: - Requires continued inpatient care CODE STATUS: FULL CODE Visit type - Emergency Visit Emergency Visit: Yes ED Registration Date: 11/24/17 Care time: The patient presented to the Emergency Department on the above date and was hospitalized for further evaluation of their emergent condition. - New Patient This patient is new to me today: No - Critical Care Critical Care patient: No
[2017-11-30] MEDS ORDERED: DEXTROSE 5%-WATER 100 ML IVPB ONE (10:59)
[2017-11-30] MEDS: CEFTRIAXONE 2 GM in DEXTROSE 5%-WATER 100 ML IVPB SCH (12:21)
[2017-11-30] MEDS: NIFEdipine E.R 60 MG TABLET (UD) PO SCH (12:21)
[2017-11-30] MEDS: LABETALOL HCL 100 MG TABLET (FP) PO SCH ×2 (12:21→21:19)
--- NOTE | 2017-11-30 13:01 | PN ---
Progress Note (short form) - Note Progress Note: continued right flank discomfort no further fevers Vital Signs Period Temp Pulse Resp BP Sys/Green Pulse Ox Last 24 Hr 98.4 F-99.2 F 61-106 18-22 131-164/80-108 98-98 cor-rrr lungs decreased bs at bases abd soft,nt ext no edema CBC, BMP 11/30/17 07:50 11/30/17 07:50 Microbiology 11/25/17 13:13 Blood - Peripheral Venous Blood Culture - Preliminary NO GROWTH OBTAINED AFTER 96 HOURS, INCUBATION TO CONTINUE FOR 1 DAYS. 11/25/17 12:33 Blood - Peripheral Venous Blood Culture - Preliminary NO GROWTH OBTAINED AFTER 96 HOURS, INCUBATION TO CONTINUE FOR 1 DAYS. 11/25/17 18:09 Urine - Urine Clean Catch Urine Culture - Final NO GROWTH OBTAINED chest ct- RLL consolidation a/p fevers- resolved chest ct with RLL consolidation- day #5 of 7 rocephin, please call back if needed s/p right perinephric hemorrhage
--- NOTE | 2017-11-30 15:44 | PN ---
Progress Note, Physician History of Present Illness: Pt seen and examined at bedside. He is awake and alert. He tolerated HD today. He denies shortness of breath. - Current Medication List Current Medications: Active Medications Acetaminophen (Tylenol -) 650 mg PO Q6H PRN PRN Reason: PAIN LEVEL 1-6 Last Admin: 11/29/17 03:40 Dose: 650 mg Acetaminophen (Tylenol -) 650 mg PO Q6H PRN PRN Reason: FEVER Ceftriaxone Sodium 2 gm/ (Dextrose) 100 mls @ 200 mls/hr IVPB DAILY [facility] Last Admin: 11/30/17 12:21 Dose: 200 mls/hr Sodium Chloride (Normal Saline -) 250 mls @ 3,000 mls/hr IV PRN PRN PRN Reason: Hypotension during Dialysis Labetalol HCl (Normodyne -) 100 mg PO BID [facility] Last Admin: 11/30/17 12:21 Dose: 100 mg Labetalol HCl (Normodyne Injection -) 10 mg IVPUSH Q4H PRN PRN Reason: HYPERTENSION Morphine Sulfate (Morphine Sulfate) 2 mg IVPUSH Q4H PRN PRN Reason: PAIN LEVEL 7 - 10 Nifedipine (Procardia Xl -) 60 mg PO DAILY [facility] Last Admin: 11/30/17 12:21 Dose: 60 mg - Objective Vital Signs: Vital Signs Temperature 97.8 F 11/30/17 14:45 Pulse Rate 102 H 11/30/17 14:45 Respiratory Rate 22 11/30/17 14:45 Blood Pressure 190/99 11/30/17 14:45 O2 Sat by Pulse Oximetry (%) 98 11/29/17 21:08 Constitutional: Yes: Calm Eyes: Yes: Conjunctiva Clear HENT: Yes: Atraumatic Neck: Yes: Supple Cardiovascular: Yes: S1, S2 Respiratory: Yes: CTA Bilaterally Gastrointestinal: Yes: Normal Bowel Sounds, Soft Genitourinary: Yes: WNL Musculoskeletal: Yes: WNL Edema: No Neurological: Yes: Oriented Psychiatric: Yes: Oriented Labs: CBC, BMP 11/30/17 07:50 11/30/17 07:50 INR, PTT INR 1.29 (0.82-1.09) H 11/26/17 06:15 Problem List - Problems (1) ESRD (end stage renal disease) Code(s): N18.6 - END STAGE RENAL DISEASE (2) HTN (hypertension) Code(s): I10 - ESSENTIAL (PRIMARY) HYPERTENSION (3) Renal hematoma Code(s): S37.019A - MINOR CONTUSION OF UNSPECIFIED KIDNEY, INITIAL ENCOUNTER Qualifiers: Laterality: right (4) Retroperitoneal hematoma Code(s): K66.1 - HEMOPERITONEUM Assessment/Plan Current Medications Generic Name Dose Route Start Last Admin Trade Name Freq PRN Reason Stop Dose Admin Acetaminophen 650 mg 11/27/17 20:11 11/29/17 03:40 Tylenol - PO 650 mg Q6H PRN Administration PAIN LEVEL 1-6 Acetaminophen 650 mg 11/27/17 20:11 Tylenol - PO Q6H PRN FEVER Ceftriaxone Sodium 2 gm/ 100 mls @ 200 mls/hr 11/28/17 10:00 11/30/17 12:21 Dextrose IVPB 200 mls/hr DAILY PAMELA Administration Sodium Chloride 250 mls @ 3,000 mls/hr 11/28/17 16:11 Normal Saline - IV PRN PRN Hypotension during Dialysis Labetalol HCl 100 mg 11/27/17 22:00 11/30/17 12:21 Normodyne - PO 100 mg BID PAMELA Administration Labetalol HCl 10 mg 11/27/17 20:11 Normodyne Injection - IVPUSH Q4H PRN HYPERTENSION Morphine Sulfate 2 mg 11/27/17 20:11 Morphine Sulfate IVPUSH Q4H PRN PAIN LEVEL 7 - 10 Nifedipine 60 mg 11/28/17 10:00 11/30/17 12:21 Procardia Xl - PO 60 mg DAILY PAMELA Administration Impression 1. ESRD 2. HTN 3. right subcapsular perinephric hematoma 4. anemia acute 5. obesity Plan - HD today - increase nifedipine to 90 mg - IR/urology follow up for imaging - monitor hg - abx per ID - will follow Dr Guerra
[2017-12-01] MEDS: ACETAMINOPHEN 325 MG TABLET (FP) PO PRN (06:17)
[2017-12-01 06:57] LABS: HEMATOCRIT 25.3 % (35.4-49); HEMOGLOBIN 8.5 GM/dL (11.7-16.9); MCH 28.5 pg (25.7-33.7); MCHC 33.6 g/dl (32.0-35.9); MEAN PLT VOLUME 8.9 fl (7.5-11.1); PLATELET COUNT 304 K/MM3 (134-434); RBC 2.98 M/mm3 (4.00-5.60); RDW 16.3 % (11.9-15.9); WHITE BLOOD COUNT 9.5 K/mm3 (4.0-10.0)
[2017-12-01 07:22] LABS: CALCIUM 8.7 mg/dL (8.5-10.1); CHLORIDE 96 mmol/L (98-107); SODIUM 138 mmol/L (136-145)
[2017-12-01 07:33] LABS: ALBUMIN 3.2 g/dl (3.4-5.0); ALK PHOS 46 U/L (45-117); ANION GAP 14 (8-16); BILIRUBIN,TOTAL 1.1 mg/dL (0.2-1.0); BLOOD UREA NITROGEN 40 mg/dL (7-18); CO2 28 mmol/L (21-32); GLUCOSE,RANDOM 81 mg/dL (74-106); SGOT/AST 24 U/L (15-37); SGPT/ALT 24 U/L (12-78)
[2017-12-01] MEDS ORDERED: DEXTROSE 5%-WATER 100 ML IVPB ONE (09:08)
[2017-12-01] MEDS: NIFEdipine E.R 60 MG TABLET (UD) PO SCH (09:20)
[2017-12-01] MEDS: LABETALOL HCL 100 MG TABLET (FP) PO SCH ×2 (09:20→21:59)
--- NOTE | 2017-12-01 10:19 | PN ---
Progress Note (short form) - Note Progress Note: No new events Pain controlled On diet Vital Signs Period Temp Pulse Resp BP Sys/Green Pulse Ox Last 24 Hr 97.8 F-99.8 F 95-106 16-22 139-190/74-108 96 Abd soft, ND CBC, BMP 12/01/17 06:30 12/01/17 06:30 Serial H/H Urology/IR follow up Problem List - Problems (1) Renal hematoma Code(s): S37.019A - MINOR CONTUSION OF UNSPECIFIED KIDNEY, INITIAL ENCOUNTER Qualifiers: Laterality: right (2) Retroperitoneal hematoma Code(s): K66.1 - HEMOPERITONEUM
--- NOTE | 2017-12-01 10:55 | CONSULT ---
Consult - text type - Consultation Consultation Note: 27 yo male with history of ESRD on HD who presented on November 24 with right perinephric and retroperitoneal hematoma associated with significant flank pain and tachycardia reaching 188bp however with relatively stable blood pressure. Since then he has been managed conservatively with blood product transfusion. The patient received only 1 PRBC on November 24 and since the H/H has been stable hovering around 8.8-9/25.3-27 (please see below). 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 No follow imaging is deemed necessary at this time. Recommenation for tight blood control and avoiding anticoagulation has been relayed. No need for further imaging. 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 CBC WBC 9.5 K/mm3 (4.0-10.0) 12/01/17 06:30 RBC 2.98 M/mm3 (4.00-5.60) L 12/01/17 06:30 Hgb 8.5 GM/dL (11.7-16.9) L 12/01/17 06:30 Hct 25.3 % (35.4-49) L 12/01/17 06:30 MCV 85.0 fl (80-96) 12/01/17 06:30 MCH 28.5 pg (25.7-33.7) 12/01/17 06:30 MCHC 33.6 g/dl (32.0-35.9) 12/01/17 06:30 RDW 16.3 % (11.9-15.9) H 12/01/17 06:30 Plt Count 304 K/MM3 (134-434) 12/01/17 06:30 MPV 8.9 fl (7.5-11.1) 12/01/17 06:30 Neutrophils % 73.4 % (42.8-82.8) 11/30/17 07:50 Lymphocytes % 10.1 % (8-40) D 11/30/17 07:50 Monocytes % 11.2 % (3.8-10.2) H 11/30/17 07:50 Eosinophils % 4.4 % (0-4.5) 11/30/17 07:50 Basophils % 0.9 % (0-2.0) 11/30/17 07:50
[2017-12-01] MEDS ORDERED: CEFTRIAXONE 2 GM-D5W BAG 2 GM/50 ML BAG IVPB SCH (11:30)
--- NOTE | 2017-12-01 12:51 | PN ---
Progress Note (short form) - Note Progress Note: Subjective: The patient was seen and examined at the bedside, he denies any complaints at this time Current Medications Generic Name Dose Route Start Last Admin Trade Name Anna PRN Reason Stop Dose Admin Acetaminophen 650 mg 11/27/17 20:11 12/01/17 06:17 Tylenol - PO 650 mg Q6H PRN Administration PAIN LEVEL 1-6 Acetaminophen 650 mg 11/27/17 20:11 Tylenol - PO Q6H PRN FEVER Sodium Chloride 250 mls @ 3,000 mls/hr 11/28/17 16:11 Normal Saline - IV PRN PRN Hypotension during Dialysis CEFTRIAXONE IN IS-OSM DEXTROSE 2 gm in 50 mls @ 100 mls/hr 12/01/17 11:30 11:31 Ceftriaxone 2 Gm-D5w Bag IVPB 100 mls/hr DAILY PAMELA Administration Labetalol HCl 100 mg 11/27/17 22:00 12/01/17 09:20 Normodyne - PO 100 mg BID PAMELA Administration Labetalol HCl 10 mg 11/27/17 20:11 Normodyne Injection - IVPUSH Q4H PRN HYPERTENSION Nifedipine 60 mg 11/28/17 10:00 12/01/17 09:20 Procardia Xl - PO 60 mg DAILY PAMELA Administration Objective: Vital Signs Period Temp Pulse Resp BP Sys/Green Pulse Ox Last 24 Hr 97.8 F-99.8 F 95-106 16-22 139-190/74-99 96-98 Physical Exam: GENERAL: Awake, alert, and fully oriented, in no acute distress. LUNGS: Breath sounds equal, clear to auscultation bilaterally. No wheezes, and no crackles. No accessory muscle use. HEART: Regular rate and rhythm, normal S1 and S2 without murmur, rub or gallop. ABDOMEN: Soft, nontender, not distended, normoactive bowel sounds, no guarding, no rebound, no masses. No hepatomegaly or splenomegaly. MUSCULOSKELETAL: Normal range of motion at all joints. No bony deformities or tenderness. UPPER EXTREMITIES: Left arm AV fistula, + thrill, + bruit. 2+ pulses LOWER EXTREMITIES: 2+ pulses, warm, well-perfused. No calf tenderness NEUROLOGICAL: Cranial nerves II-XII intact. Normal speech. Gait not observed PSYCHIATRIC: Cooperative. Good eye contact. Appropriate mood and affect. SKIN: Warm, dry, normal turgor, no rashes or lesions noted, normal capillary refill. CBCD WBC 9.5 K/mm3 (4.0-10.0) 12/01/17 06:30 RBC 2.98 M/mm3 (4.00-5.60) L 12/01/17 06:30 Hgb 8.5 GM/dL (11.7-16.9) L 12/01/17 06:30 Hct 25.3 % (35.4-49) L 12/01/17 06:30 MCV 85.0 fl (80-96) 12/01/17 06:30 MCHC 33.6 g/dl (32.0-35.9) 12/01/17 06:30 RDW 16.3 % (11.9-15.9) H 12/01/17 06:30 Plt Count 304 K/MM3 (134-434) 12/01/17 06:30 MPV 8.9 fl (7.5-11.1) 12/01/17 06:30 CMP Sodium 138 mmol/L (136-145) 12/01/17 06:30 Potassium 4.0 mmol/L (3.5-5.1) 12/01/17 06:30 Chloride 96 mmol/L (98-107) L 12/01/17 06:30 Carbon Dioxide 28 mmol/L (21-32) 12/01/17 06:30 Anion Gap 14 (8-16) 12/01/17 06:30 BUN 40 mg/dL (7-18) H 12/01/17 06:30 Creatinine 11.0 mg/dL (0.7-1.3) H* 12/01/17 06:30 Creat Clearance w eGFR 5.59 (>60) 12/01/17 06:30 Random Glucose 81 mg/dL (74-106) D 12/01/17 06:30 Calcium 8.7 mg/dL (8.5-10.1) 12/01/17 06:30 Total Bilirubin 1.1 mg/dL (0.2-1.0) H D 12/01/17 06:30 AST 24 U/L (15-37) 12/01/17 06:30 ALT 24 U/L (12-78) 12/01/17 06:30 Alkaline Phosphatase 46 U/L (45-117) 12/01/17 06:30 Total Protein 8.0 g/dl (6.4-8.2) 12/01/17 06:30 Albumin 3.2 g/dl (3.4-5.0) L 12/01/17 06:30 Microbiology 11/25/17 13:13 Blood - Peripheral Venous Blood Culture - Final NO GROWTH AFTER 5 DAYS INCUBATION 11/25/17 12:33 Blood - Peripheral Venous Blood Culture - Final NO GROWTH AFTER 5 DAYS INCUBATION 11/25/17 18:09 Urine - Urine Clean Catch Urine Culture - Final NO GROWTH OBTAINED Assessment: This is a 27 year old male with PMHx of ESRD (on HD at [facility] M ,W,F), HTN, who presented to the ED with right flank pain radiating around his right side to his umbilical area, nausea, one episode of vomiting. Plan: 1) Sepsis 2/2 pneumonia vs. acute hematoma - Chest CT with right lower lobe consolidation - Continue Ceftriaxone #6 out of 7 today - Appreciate ID consult 2) Acute right perinephric hemorrhage - Possible intrarenal hemorrhage as well - Hgb remains stable - Pain management - Appreciate Dr. Franklin consult. No further imaging required at this time - Appreciate surgery consult: discussed with Dr. Figueredo, no surgical intervention at this time - Appreciate urology consult 3) ESRD - Tolerated HD yesterday - Appreciate nephrology consult 4) F/E/N: - Renal Diet 5) Prophylaxis: - Hold all chemical DVT prophylaxis 2/2 acute bleed - SCDs bilaterally 6) Dispo: - Requires continued inpatient care CODE STATUS: FULL CODE Visit type - Emergency Visit Emergency Visit: Yes ED Registration Date: 11/24/17 Care time: The patient presented to the Emergency Department on the above date and was hospitalized for further evaluation of their emergent condition. - New Patient This patient is new to me today: No - Critical Care Critical Care patient: No
[2017-12-01] MEDS ORDERED: CEFTRIAXONE 2 GM in DEXTROSE 5%-WATER 100 ML IVPB SCH (13:50)
--- NOTE | 2017-12-01 15:25 | PN ---
Progress Note, Physician History of Present Illness: Pt seen and examined at bedside. He is awake and alert. He denies shortness of breath. - Current Medication List Current Medications: Active Medications Acetaminophen (Tylenol -) 650 mg PO Q6H PRN PRN Reason: PAIN LEVEL 1-6 Last Admin: 12/01/17 06:17 Dose: 650 mg Acetaminophen (Tylenol -) 650 mg PO Q6H PRN PRN Reason: FEVER Sodium Chloride (Normal Saline -) 250 mls @ 3,000 mls/hr IV PRN PRN PRN Reason: Hypotension during Dialysis Ceftriaxone Sodium 2 gm/ (Dextrose) 100 mls @ 200 mls/hr IVPB DAILY [facility] Labetalol HCl (Normodyne -) 100 mg PO BID [facility] Last Admin: 12/01/17 09:20 Dose: 100 mg Labetalol HCl (Normodyne Injection -) 10 mg IVPUSH Q4H PRN PRN Reason: HYPERTENSION Nifedipine (Procardia Xl -) 60 mg PO DAILY [facility] Last Admin: 12/01/17 09:20 Dose: 60 mg - Objective Vital Signs: Vital Signs Temperature 99.1 F 12/01/17 14:00 Pulse Rate 106 H 12/01/17 14:00 Respiratory Rate 16 12/01/17 08:55 Blood Pressure 145/82 12/01/17 14:00 O2 Sat by Pulse Oximetry (%) 98 12/01/17 08:00 Constitutional: Yes: Calm Eyes: Yes: Conjunctiva Clear HENT: Yes: Atraumatic Cardiovascular: Yes: S1, S2 Respiratory: Yes: CTA Bilaterally Gastrointestinal: Yes: Soft, Abdomen, Obese Genitourinary: Yes: WNL Musculoskeletal: Yes: WNL Edema: No Neurological: Yes: Oriented Psychiatric: Yes: Oriented Labs: CBC, BMP 12/01/17 06:30 12/01/17 06:30 INR, PTT INR 1.29 (0.82-1.09) H 11/26/17 06:15 Problem List - Problems (1) ESRD (end stage renal disease) Code(s): N18.6 - END STAGE RENAL DISEASE (2) HTN (hypertension) Code(s): I10 - ESSENTIAL (PRIMARY) HYPERTENSION (3) Renal hematoma Code(s): S37.019A - MINOR CONTUSION OF UNSPECIFIED KIDNEY, INITIAL ENCOUNTER Qualifiers: Laterality: right (4) Retroperitoneal hematoma Code(s): K66.1 - HEMOPERITONEUM Assessment/Plan Current Medications Generic Name Dose Route Start Last Admin Trade Name Freq PRN Reason Stop Dose Admin Acetaminophen 650 mg 11/27/17 20:11 12/01/17 06:17 Tylenol - PO 650 mg Q6H PRN Administration PAIN LEVEL 1-6 Acetaminophen 650 mg 11/27/17 20:11 Tylenol - PO Q6H PRN FEVER Sodium Chloride 250 mls @ 3,000 mls/hr 11/28/17 16:11 Normal Saline - IV PRN PRN Hypotension during Dialysis Ceftriaxone Sodium 2 gm/ 100 mls @ 200 mls/hr 12/01/17 13:50 Dextrose IVPB DAILY [facility] Labetalol HCl 100 mg 11/27/17 22:00 12/01/17 09:20 Normodyne - PO 100 mg BID [facility] Administration Labetalol HCl 10 mg 11/27/17 20:11 Normodyne Injection - IVPUSH Q4H PRN HYPERTENSION Nifedipine 60 mg 11/28/17 10:00 12/01/17 09:20 Procardia Xl - PO 60 mg DAILY [facility] Administration Impression 1. ESRD 2. HTN 3. right subcapsular perinephric hematoma 4. anemia acute 5. obesity Plan - HD in am - can increase nifedipine dose - IR input appreciated - BP has been labile, doubt it was controlled as outpt - monitor hg - abx per ID - will follow Dr Guerra
[2017-12-01] MEDS ORDERED: NIFEdipine E.R. 90 MG TABLET (FP) PO SCH (15:26)
[2017-12-01] MEDS ORDERED: SODIUM CHLORIDE 250 ML IV PRN (15:26)
[2017-12-02] MEDS ORDERED: DEXTROSE 5%-WATER 100 ML IVPB ONE (08:15)
[2017-12-02] MEDS ORDERED: EPOETIN ALFA 3,000 UNIT/1 ML ML IVPUSH ONE (10:00)
[2017-12-02 10:36] LABS: HEMATOCRIT 24.1 % (35.4-49); HEMOGLOBIN 8.1 GM/dL (11.7-16.9); MCH 28.2 pg (25.7-33.7); MCHC 33.6 g/dl (32.0-35.9); MEAN PLT VOLUME 8.5 fl (7.5-11.1); PLATELET COUNT 337 K/MM3 (134-434); RBC 2.87 M/mm3 (4.00-5.60); RDW 15.8 % (11.9-15.9); WHITE BLOOD COUNT 9.8 K/mm3 (4.0-10.0)
[2017-12-02 11:00] LABS: ANION GAP 11 (8-16); BLOOD UREA NITROGEN 58 mg/dL (7-18); CALCIUM 8.6 mg/dL (8.5-10.1); CHLORIDE 99 mmol/L (98-107); CO2 27 mmol/L (21-32); GLUCOSE,RANDOM 96 mg/dL (74-106); POTASSIUM 4.1 mmol/L (3.5-5.1); SODIUM 137 mmol/L (136-145)
[2017-12-02 11:09] LABS: CREATININE 14.6 mg/dL (0.7-1.3)
[2017-12-02 11:31] VITALS: TEMP 98.2
[2017-12-02] MEDS: LABETALOL HCL 100 MG TABLET (FP) PO SCH (12:05)
--- NOTE | 2017-12-02 13:00 | PN ---
Progress Note, Physician History of Present Illness: Pt seen and examined at bedside. He is currently getting HD. - Current Medication List Current Medications: Active Medications Acetaminophen (Tylenol -) 650 mg PO Q6H PRN PRN Reason: PAIN LEVEL 1-6 Last Admin: 12/01/17 06:17 Dose: 650 mg Sodium Chloride (Normal Saline -) 250 mls @ 3,000 mls/hr IV PRN PRN PRN Reason: Hypotension during Dialysis Ceftriaxone Sodium 2 gm/ (Dextrose) 100 mls @ 200 mls/hr IVPB DAILY [facility] Sodium Chloride (Normal Saline -) 250 mls @ 3,000 mls/hr IV PRN PRN PRN Reason: Hypotension during Dialysis Stop: 12/02/17 15:26 Labetalol HCl (Normodyne -) 100 mg PO BID [facility] Last Admin: 12/02/17 12:05 Dose: 100 mg Labetalol HCl (Normodyne Injection -) 10 mg IVPUSH Q4H PRN PRN Reason: HYPERTENSION Nifedipine (Procardia Xl -) 90 mg PO DAILY [facility] - Objective Vital Signs: Vital Signs Temperature 98.2 F 12/02/17 10:15 Pulse Rate 90 12/02/17 12:50 Respiratory Rate 18 12/02/17 12:50 Blood Pressure 168/105 12/02/17 12:50 O2 Sat by Pulse Oximetry (%) 97 12/02/17 08:00 Constitutional: Yes: Calm Eyes: Yes: Conjunctiva Clear HENT: Yes: Atraumatic Neck: Yes: Supple Cardiovascular: Yes: S1, S2 Respiratory: Yes: CTA Bilaterally Gastrointestinal: Yes: Soft, Abdomen, Obese Genitourinary: Yes: WNL Musculoskeletal: Yes: WNL Edema: Yes Neurological: Yes: Oriented Psychiatric: Yes: Oriented Labs: CBC, BMP 12/02/17 10:00 12/02/17 10:00 INR, PTT INR 1.29 (0.82-1.09) H 11/26/17 06:15 Problem List - Problems (1) ESRD (end stage renal disease) Code(s): N18.6 - END STAGE RENAL DISEASE (2) HTN (hypertension) Code(s): I10 - ESSENTIAL (PRIMARY) HYPERTENSION (3) Renal hematoma Code(s): S37.019A - MINOR CONTUSION OF UNSPECIFIED KIDNEY, INITIAL ENCOUNTER Qualifiers: Laterality: right (4) Retroperitoneal hematoma Code(s): K66.1 - HEMOPERITONEUM Assessment/Plan Current Medications Generic Name Dose Route Start Last Admin Trade Name Freq PRN Reason Stop Dose Admin Acetaminophen 650 mg 11/27/17 20:11 12/01/17 06:17 Tylenol - PO 650 mg Q6H PRN Administration PAIN LEVEL 1-6 Sodium Chloride 250 mls @ 3,000 mls/hr 11/28/17 16:11 Normal Saline - IV PRN PRN Hypotension during Dialysis Ceftriaxone Sodium 2 gm/ 100 mls @ 200 mls/hr 12/01/17 13:50 Dextrose IVPB DAILY [facility] Sodium Chloride 250 mls @ 3,000 mls/hr 12/01/17 15:26 Normal Saline - IV 12/02/17 15:26 PRN PRN Hypotension during Dialysis Labetalol HCl 100 mg 11/27/17 22:00 12/02/17 12:05 Normodyne - PO 100 mg BID [facility] Administration Labetalol HCl 10 mg 11/27/17 20:11 Normodyne Injection - IVPUSH Q4H PRN HYPERTENSION Nifedipine 90 mg 12/01/17 15:26 Procardia Xl - PO DAILY [facility] Impression 1. ESRD 2. HTN 3. right subcapsular perinephric hematoma 4. anemia acute 5. obesity Plan - give am bp meds and monitor bp - pt getting HD at the moment - monitor hg - will need to follow up with urology and IR after discharge - BP has been labile - will follow Dr Guerra
--- NOTE | 2017-12-02 13:24 | PN ---
Progress Note (short form) - Note Progress Note: No new events Pain controlled Vital Signs Period Temp Pulse Resp BP Sys/Green Pulse Ox Last 24 Hr 98 F-99.2 F 90-106 16-20 129-189/76-106 97-98 Abd soft CBC, BMP 12/02/17 10:00 12/02/17 10:00 Continue medical management Serial H/H Problem List - Problems (1) Renal hematoma Code(s): S37.019A - MINOR CONTUSION OF UNSPECIFIED KIDNEY, INITIAL ENCOUNTER Qualifiers: Laterality: right (2) Retroperitoneal hematoma Code(s): K66.1 - HEMOPERITONEUM
--- NOTE | 2017-12-02 13:28 | DS ---
Physical Examination Vital Signs: Vital Signs Temperature 98.2 F 12/02/17 10:15 Pulse Rate 91 H 12/02/17 13:20 Respiratory Rate 18 12/02/17 13:20 Blood Pressure 163/100 12/02/17 13:20 O2 Sat by Pulse Oximetry (%) 97 12/02/17 08:00 Labs: CBC, BMP 12/02/17 10:00 12/02/17 10:00 Discharge Summary Reason For Visit: RETROPERITONEAL HEMATOMA Current Active Problems Atelectasis (Acute) ESRD (end stage renal disease) (Acute) Fever (Acute) HTN (hypertension) (Acute) Renal hematoma (Acute) Renal hemorrhage, right (Acute) Renal stone (Acute) Retroperitoneal hematoma (Acute) Condition: Improved - Instructions Diet, Activity, Other Instructions: Please return to the ED with new, persistent, or worsening symptoms. Please follow-up with providers as indicated. Please call Dr. Franklin's office within 2-3 days to schedule an appointment for a left renal aneurysm coil embolization. Referrals: Eric Franklin MD [Staff Physician] - (Please follow-up with urology within 2-3 days for further management and evaluation of your right perinephric and retroperitoneal hematoma.) Gopal Guerra MD [Staff Physician] - (Please follow-up with nephrology within 2 days for your next scheduled hemodialysis. ) Lavelle Franklin MD [Staff Physician] - Disposition: HOME - Home Medications Comprehensive Discharge Medication List: Ambulatory Orders Labetalol HCl [Normodyne -] 100 mg PO BID 11/24/17 Acetaminophen [Tylenol .Regular Strength -] 650 mg PO Q6H PRN #0 tablet Nifedipine ER [Procardia XL -] 90 mg PO DAILY #30 tab.er.24 12/02/17
[2017-12-02 15:48] VITALS: BP 141/86; PULSE 64
== END 2017-12-02 16:58 | disposition home or self-care (01) | DRG 253 ==
LOC: JER 23:37 → JERBED 11-24 08:27 → JICU 11-24 15:04 → J4W 11-27 20:19
PROVIDERS: ADMIT Internal Medicine; ATTEND Registered Nurse
PROC: 30233N1 Transfusion of Nonautologous Red Blood Cells into Peripheral Vein, Percutaneous Approach (ICD-10-PCS; principal; 2017-11-24)
PROC: 30233R1 Transfusion of Nonautologous Platelets into Peripheral Vein, Percutaneous Approach (ICD-10-PCS; 2017-11-24)
PROC: 5A1D70Z Performance of Urinary Filtration, Intermittent, Less than 6 Hours Per Day (ICD-10-PCS; 2017-11-26)
PROC: 5A1D70Z Performance of Urinary Filtration, Intermittent, Less than 6 Hours Per Day (ICD-10-PCS; 2017-11-28)
PROC: 5A1D70Z Performance of Urinary Filtration, Intermittent, Less than 6 Hours Per Day (ICD-10-PCS; 2017-11-30)
PROC: 5A1D70Z Performance of Urinary Filtration, Intermittent, Less than 6 Hours Per Day (ICD-10-PCS; 2017-12-02)
DX: K66.1 Hemoperitoneum (principal); S37.011A Minor contusion of right kidney, initial encounter; A41.9 Sepsis, unspecified organism; M54.9 Dorsalgia, unspecified; I16.0 Hypertensive urgency; I12.0 Hypertensive chronic kidney disease with stage 5 chronic kidney disease or end stage renal disease; N18.6 End stage renal disease; E87.5 Hyperkalemia; E66.9 Obesity, unspecified; Z68.38 Body mass index [BMI] 38.0-38.9, adult; D64.9 Anemia, unspecified; N50.89 Other specified disorders of the male genital organs; R50.9 Fever, unspecified; N39.0 Urinary tract infection, site not specified; J98.11 Atelectasis; E83.39 Other disorders of phosphorus metabolism; R00.0 Tachycardia, unspecified; J18.9 Pneumonia, unspecified organism; Z99.2 Dependence on renal dialysis; Y93.9 Activity, unspecified; X58.XXXA Exposure to other specified factors, initial encounter; Y92.89 Other specified places as the place of occurrence of the external cause
CPT/HCPCS: 36415; 36430; 71045-TC-FY; 71250-TC; 74175-TC; 74176; 80048; 80053; 80307; 81003; 81015; 83735; 84100; 85025; 85027; 85610; 85730; 86140; 86704; 86706; 86708; 86850; 86900; 86901; 86922; 87040; 87086; 87340; 93005; 93010; 94010; 99285-25; J0885; J2597; J7030; P9034; P9038; P9058

== ENCOUNTER 2023-08-16 11:51 | Emergency (ER) | payer OTHER ==
[2023-08-16 12:15] VITALS: TEMP 98.3; BMI 43.5
[2023-08-16] MEDS ORDERED: ONDANSETRON 4 MG/2 ML VIAL IVPUSH ONE (12:48)
[2023-08-16] MEDS ORDERED: SODIUM CHLORIDE 0.9% 500 ML INFUS.BAG IV ONE ×2 (12:48→14:23)
[2023-08-16] MEDS ORDERED: ACETAMINOPHEN 1000 MG/100 ML BAG IVPB ONE (12:48)
[2023-08-16 13:22] LABS: BASO % 0.2 % (0-2.0); EOS % 2.4 % (0-4.5); HEMATOCRIT 44.2 % (35.4-49); HEMOGLOBIN 15.2 GM/dL (11.7-16.9); LYMPH % 8.8 % (8-40); MCH 27.4 pg (25.7-33.7); MCHC 34.4 g/dl (32.0-35.9); MEAN CELL VOLUME 79.7 fl (80-96); MEAN PLT VOLUME 8.5 fl (7.5-11.1); MONO % 9.5 % (3.8-10.2); NEUT % 79.1 % (42.8-82.8); PLATELET COUNT 392 10^3/uL (134-434); RBC 5.55 M/mm3 (4.00-5.60); WHITE BLOOD COUNT 8.3 K/mm3 (4.0-10.0)
[2023-08-16] MEDS ORDERED: ACETAMINOPHEN INJECTION 100 ML IVPB ONE (13:25)
[2023-08-16] MEDS ORDERED: ONDANSETRON 4 MG/2 ML VIAL ONE (13:25)
[2023-08-16 13:29] LABS: INR 1.2 (0.83-1.09); PROTHROMBIN TIME (PATIENT) 13.9 SEC (9.7-13.0)
[2023-08-16 13:32] LABS: ACTIVATED PTT 34.3 SECONDS (25.2-36.5)
[2023-08-16 13:50] LABS: CHLORIDE 97 mmol/L (98-107); POTASSIUM 4.7 mmol/L (3.5-5.1); SODIUM 133 mmol/L (136-145)
[2023-08-16 13:53] LABS: ALBUMIN 4.4 g/dl (3.4-5.0); ANION GAP 23 mmol/L (4-13); CO2 13 mmol/L (21-32); GLUCOSE,RANDOM 117 mg/dL (74-106)
[2023-08-16 13:56] LABS: SGOT/AST 40 U/L (15-37); SGPT/ALT 36 U/L (13-61)
[2023-08-16 13:57] LABS: BILIRUBIN,TOTAL 1.3 mg/dL (0.2-1); TOT PROT 10.1 g/dl (6.4-8.2)
[2023-08-16 13:58] LABS: ALK PHOS 163 U/L (45-117)
[2023-08-16 14:17] LABS: BLOOD UREA NITROGEN 164.7 mg/dL (7-18); CREATININE 29.9 mg/dL (0.55-1.3); LIPASE 4062 U/L (73-393)
[2023-08-16 14:59] LABS: VENOUS BASE EXCESS -18.4 mmol/L (-2-2); VENOUS O2 SATURATION 53.8 % (70-80); VENOUS PCO2 31.3 mmHg (38-52)
[2023-08-16 15:00] LABS: VENOUS PH 7.114 (7.310-7.410)
[2023-08-16] MEDS ORDERED: morphine CARPU-JECT 4 MG/1 ML DISP.SYRIN IVPUSH ONE (15:30)
[2023-08-16] MEDS ORDERED: morphine SULFATE 4 MG/ML VIAL ONE (16:34)
[2023-08-16 17:56] VITALS: BP 152/89; PULSE 89; RESP 20
== END 2023-08-16 17:45 | disposition short-term general hospital (02) ==
LOC: JER 11:51
PROC: 3E033NZ Introduction of Analgesics, Hypnotics, Sedatives into Peripheral Vein, Percutaneous Approach (ICD-10-PCS; principal; 2023-08-16)
PROC: 3E033GC Introduction of Other Therapeutic Substance into Peripheral Vein, Percutaneous Approach (ICD-10-PCS; 2023-08-16)
PROC: 3E033GC Introduction of Other Therapeutic Substance into Peripheral Vein, Percutaneous Approach (ICD-10-PCS; 2023-08-16)
DX: R11.2 Nausea with vomiting, unspecified (principal); R05.9 Cough, unspecified; R10.31 Right lower quadrant pain; N18.6 End stage renal disease; Z20.822 Contact with and (suspected) exposure to COVID-19
CPT/HCPCS: 0241U-QW; 36415; 80053; 82803; 83605; 83690; 85025; 85610; 85730; 86850; 86900; 86901; 93005; 93010; 99285-25

== ENCOUNTER 2023-11-23 07:39 | Inpatient (IN) | payer OTHER ==
[2023-11-23 09:12] LABS: BASO % 0.8 % (0-2.0); EOS % 8.2 % (0-4.5); HEMATOCRIT 19.6 % (35.4-49); LYMPH % 13.5 % (8-40); MCH 25.8 pg (25.7-33.7); MCHC 32.2 g/dl (32.0-35.9); MEAN PLT VOLUME 7.4 fl (7.5-11.1); MONO % 10.2 % (3.8-10.2); NEUT % 67.3 % (42.8-82.8); PLATELET COUNT 290 10^3/uL (134-434); RBC 2.45 M/mm3 (4.00-5.60); RDW 16.6 % (11.9-15.9); WHITE BLOOD COUNT 7.9 K/mm3 (4.0-10.0)
[2023-11-23 09:24] LABS: HEMOGLOBIN 6.3 GM/dL (11.7-16.9)
[2023-11-23 09:30] LABS: CHLORIDE 104 mmol/L (98-107); SODIUM 137 mmol/L (136-145)
[2023-11-23 09:32] LABS: CALCIUM 8.4 mg/dL (8.5-10.1)
[2023-11-23 09:33] LABS: ALBUMIN 2.2 g/dl (3.4-5.0); ANION GAP 7 mmol/L (4-13); CO2 25 mmol/L (21-32); GLUCOSE,RANDOM 98 mg/dL (74-106)
[2023-11-23 09:36] LABS: SGOT/AST 12 U/L (15-37); SGPT/ALT 10 U/L (13-61)
[2023-11-23 09:37] LABS: BILIRUBIN,TOTAL 0.7 mg/dL (0.2-1); TOT PROT 7.2 g/dl (6.4-8.2)
[2023-11-23 09:38] LABS: ALK PHOS 54 U/L (45-117); CREATININE 14.8 mg/dL (0.55-1.3)
[2023-11-23 13:05] LABS: RETICULOCYTES 1.62 % (0.5-1.5)
[2023-11-23 13:44] LABS: TOTAL IRON BINDING CAPACITY 136 ug/dL (250-450)
[2023-11-23 13:48] LABS: IRON SERUM 26 ug/dL (50-175)
[2023-11-23] MEDS: EPOETIN ALFA-EPBX 10,000 UNIT/ML VIAL IVPUSH ONE (14:30)
[2023-11-23] MEDS ORDERED: SODIUM CHLORIDE 250 ML IV PRN (15:00)
[2023-11-23 19:23] LABS: HEMATOCRIT 25.4 % (35.4-49); HEMOGLOBIN 8.2 GM/dL (11.7-16.9); MCH 26.2 pg (25.7-33.7); MCHC 32.3 g/dl (32.0-35.9); MEAN CELL VOLUME 81.2 fl (80-96); MEAN PLT VOLUME 7.4 fl (7.5-11.1); PLATELET COUNT 305 10^3/uL (134-434); RBC 3.12 M/mm3 (4.00-5.60); RDW 16.6 % (11.9-15.9); WHITE BLOOD COUNT 8.9 K/mm3 (4.0-10.0)
[2023-11-24 06:50] LABS: HEMATOCRIT 23.5 % (35.4-49); HEMOGLOBIN 7.8 GM/dL (11.7-16.9); MCHC 33.4 g/dl (32.0-35.9); MEAN PLT VOLUME 7.6 fl (7.5-11.1); PLATELET COUNT 280 10^3/uL (134-434); RBC 2.91 M/mm3 (4.00-5.60); RDW 16.8 % (11.9-15.9); WHITE BLOOD COUNT 8.7 K/mm3 (4.0-10.0)
[2023-11-24 07:00] LABS: CHLORIDE 102 mmol/L (98-107); POTASSIUM 3.8 mmol/L (3.5-5.1); SODIUM 137 mmol/L (136-145)
[2023-11-24 07:02] LABS: ALBUMIN 2.3 g/dl (3.4-5.0); ANION GAP 5 mmol/L (4-13); BLOOD UREA NITROGEN 27.2 mg/dL (7-18); CALCIUM 8.6 mg/dL (8.5-10.1); CO2 29 mmol/L (21-32); GLUCOSE,RANDOM 84 mg/dL (74-106); MAGNESIUM 1.9 mg/dL (1.8-2.4)
[2023-11-24 07:05] LABS: PHOSPHOROUS 3.8 mg/dL (2.5-4.9); SGPT/ALT 7 U/L (13-61)
[2023-11-24 07:06] LABS: SGOT/AST 13 U/L (15-37)
[2023-11-24 07:07] LABS: TOT PROT 7.3 g/dl (6.4-8.2)
[2023-11-24 07:08] LABS: ALK PHOS 57 U/L (45-117)
[2023-11-24 07:19] LABS: CREATININE 11.3 mg/dL (0.55-1.3)
[2023-11-24 08:34] LABS: EPI CELLS >36 /uL (0-25.1); HYALINE CASTS 29 /uL (0-3.1); PH,URINE 7.5 (5.0-8.0); URINE APPEARANCE CLOUDY; URINE BACTERIA 48 /uL (0-1359); URINE BILIRUBIN 2+ (NEGATIVE); URINE COLOR ORANGE; URINE GLUCOSE (UA) NEGATIVE (NEGATIVE); URINE KETONE NEGATIVE (NEGATIVE); URINE LEUK ESTERASE 1+ (NEGATIVE); URINE NITRITE NEGATIVE (NEGATIVE); URINE PROTEIN 4+ (NEGATIVE); URINE RBC 6925 /uL (0-23.9); URINE UROBILINOGEN 0.2 mg/dL (0.2-1.0); URINE WBC 387 /uL (0-25.8)
[2023-11-25] MEDS ORDERED: SODIUM CHLORIDE 250 ML IV PRN (08:41)
[2023-11-25] MEDS: EPOETIN ALFA-EPBX 10,000 UNIT/ML VIAL SQ ONE (09:15)
[2023-11-25 12:22] LABS: CHLORIDE 102 mmol/L (98-107); POTASSIUM 3.6 mmol/L (3.5-5.1); SODIUM 136 mmol/L (136-145)
[2023-11-25 12:30] LABS: EOS % 7.8 % (0-4.5); HEMATOCRIT 23.5 % (35.4-49); HEMOGLOBIN 7.7 GM/dL (11.7-16.9); LYMPH % 16.1 % (8-40); MCH 26.3 pg (25.7-33.7); MCHC 32.9 g/dl (32.0-35.9); MEAN CELL VOLUME 80.1 fl (80-96); MEAN PLT VOLUME 7.6 fl (7.5-11.1); MONO % 12.2 % (3.8-10.2); NEUT % 62.9 % (42.8-82.8); PLATELET COUNT 277 10^3/uL (134-434); RBC 2.93 M/mm3 (4.00-5.60); RDW 16.8 % (11.9-15.9)
[2023-11-25 12:34] LABS: CALCIUM 8.7 mg/dL (8.5-10.1)
[2023-11-25 12:35] LABS: ALBUMIN 2.3 g/dl (3.4-5.0); ANION GAP 6 mmol/L (4-13); BLOOD UREA NITROGEN 36.4 mg/dL (7-18); CO2 29 mmol/L (21-32); GLUCOSE,RANDOM 107 mg/dL (74-106)
[2023-11-25 12:36] LABS: SGPT/ALT 9 U/L (13-61)
[2023-11-25 12:37] LABS: BILIRUBIN,TOTAL 0.8 mg/dL (0.2-1)
[2023-11-25 12:38] LABS: SGOT/AST 11 U/L (15-37); TOT PROT 7.3 g/dl (6.4-8.2)
[2023-11-25 12:39] LABS: ALK PHOS 55 U/L (45-117)
[2023-11-25 12:43] LABS: CREATININE 14.5 mg/dL (0.55-1.3)
[2023-11-25] MEDS: NIFEdipine E.R 60 MG TABLET PO SCH (18:30)
[2023-11-26 00:33] LABS: BASO % 0.7 % (0-2.0); EOS % 6.9 % (0-4.5); HEMATOCRIT 25.9 % (35.4-49); HEMOGLOBIN 8.5 GM/dL (11.7-16.9); MCH 26.5 pg (25.7-33.7); MCHC 32.8 g/dl (32.0-35.9); MEAN PLT VOLUME 7.5 fl (7.5-11.1); MONO % 14.8 % (3.8-10.2); NEUT % 61.6 % (42.8-82.8); PLATELET COUNT 265 10^3/uL (134-434); RDW 17.1 % (11.9-15.9); WHITE BLOOD COUNT 8.4 K/mm3 (4.0-10.0)
[2023-11-26 08:36] LABS: BASO % 0.7 % (0-2.0); EOS % 7.9 % (0-4.5); HEMATOCRIT 25.9 % (35.4-49); HEMOGLOBIN 8.5 GM/dL (11.7-16.9); MCH 26.5 pg (25.7-33.7); MCHC 32.9 g/dl (32.0-35.9); MEAN CELL VOLUME 80.7 fl (80-96); MEAN PLT VOLUME 7.7 fl (7.5-11.1); MONO % 13.5 % (3.8-10.2); NEUT % 59.9 % (42.8-82.8); PLATELET COUNT 269 10^3/uL (134-434); RDW 16.9 % (11.9-15.9)
[2023-11-26 08:37] LABS: CHLORIDE 101 mmol/L (98-107); POTASSIUM 3.5 mmol/L (3.5-5.1); SODIUM 138 mmol/L (136-145)
[2023-11-26 08:42] LABS: CALCIUM 8.9 mg/dL (8.5-10.1)
[2023-11-26 08:43] LABS: ALBUMIN 2.3 g/dl (3.4-5.0); ANION GAP 5 mmol/L (4-13); CO2 32 mmol/L (21-32); GLUCOSE,RANDOM 97 mg/dL (74-106)
[2023-11-26 08:46] LABS: SGOT/AST 12 U/L (15-37); SGPT/ALT 10 U/L (13-61)
[2023-11-26 08:47] LABS: BILIRUBIN,TOTAL 0.7 mg/dL (0.2-1); TOT PROT 7.5 g/dl (6.4-8.2)
[2023-11-26 08:48] LABS: ALK PHOS 52 U/L (45-117)
[2023-11-26 08:55] LABS: CREATININE 10.7 mg/dL (0.55-1.3)
[2023-11-27] MEDS ORDERED: SODIUM CHLORIDE 250 ML IV PRN (08:39)
[2023-11-27 09:17] LABS: BASO % 0.7 % (0-2.0); EOS % 9.1 % (0-4.5); HEMATOCRIT 24.4 % (35.4-49); LYMPH % 16.5 % (8-40); MCH 26.4 pg (25.7-33.7); MCHC 32.8 g/dl (32.0-35.9); MEAN CELL VOLUME 80.5 fl (80-96); MEAN PLT VOLUME 7.8 fl (7.5-11.1); MONO % 11.1 % (3.8-10.2); NEUT % 62.6 % (42.8-82.8); PLATELET COUNT 260 10^3/uL (134-434); RBC 3.03 M/mm3 (4.00-5.60); RDW 17.4 % (11.9-15.9); WHITE BLOOD COUNT 8.2 K/mm3 (4.0-10.0)
[2023-11-27 09:33] LABS: CHLORIDE 99 mmol/L (98-107); POTASSIUM 3.7 mmol/L (3.5-5.1); SODIUM 135 mmol/L (136-145)
[2023-11-27 09:39] LABS: CALCIUM 8.7 mg/dL (8.5-10.1)
[2023-11-27 09:40] LABS: ALBUMIN 2.3 g/dl (3.4-5.0); ANION GAP 5 mmol/L (4-13); BLOOD UREA NITROGEN 30.7 mg/dL (7-18); CO2 31 mmol/L (21-32); GLUCOSE,RANDOM 144 mg/dL (74-106)
[2023-11-27 09:42] LABS: TOT PROT 7.4 g/dl (6.4-8.2)
[2023-11-27 09:43] LABS: SGOT/AST 16 U/L (15-37); SGPT/ALT 9 U/L (13-61)
[2023-11-27 09:44] LABS: BILIRUBIN,TOTAL 0.8 mg/dL (0.2-1)
[2023-11-27 09:46] LABS: ALK PHOS 51 U/L (45-117)
[2023-11-27 09:52] LABS: CREATININE 11.5 mg/dL (0.55-1.3)
[2023-11-27] MEDS: EPOETIN ALFA-EPBX 10,000 UNIT/ML VIAL SQ ONE (09:56)
[2023-11-27] MEDS: LOSARTAN POTASSIUM 50 MG TABLET PO SCH (12:22)
[2023-11-29 09:22] LABS: HEMATOCRIT 26.6 % (35.4-49); HEMOGLOBIN 8.5 GM/dL (11.7-16.9); MCH 26.1 pg (25.7-33.7); MCHC 32.1 g/dl (32.0-35.9); MEAN CELL VOLUME 81.3 fl (80-96); MEAN PLT VOLUME 7.7 fl (7.5-11.1); PLATELET COUNT 276 10^3/uL (134-434); RBC 3.27 M/mm3 (4.00-5.60); RDW 17.3 % (11.9-15.9); WHITE BLOOD COUNT 7.4 K/mm3 (4.0-10.0)
[2023-11-29 10:00] LABS: CHLORIDE 101 mmol/L (98-107); POTASSIUM 4.2 mmol/L (3.5-5.1); SODIUM 139 mmol/L (136-145)
[2023-11-29 10:12] LABS: CALCIUM 8.7 mg/dL (8.5-10.1)
[2023-11-29 10:13] LABS: ANION GAP 8 mmol/L (4-13); BLOOD UREA NITROGEN 36.2 mg/dL (7-18); CO2 30 mmol/L (21-32); GLUCOSE,RANDOM 83 mg/dL (74-106)
[2023-11-29 10:18] LABS: CREATININE 12.9 mg/dL (0.55-1.3)
[2023-11-29] MEDS: BISACODYL 5 MG TABLET.DR (FP) PO ONE (16:04)
[2023-11-29] MEDS: PEG 3350/NA SULF BICARB CL/KCL 4000 ML SOLN.RECON PO ONE (16:32)
[2023-11-30] MEDS ORDERED: SODIUM CHLORIDE 250 ML IV PRN (08:11)
[2023-11-30 08:26] LABS: INR 1.21 (0.83-1.09)
[2023-11-30 08:41] LABS: BASO % 0.8 % (0-2.0); EOS % 10.5 % (0-4.5); HEMATOCRIT 28.3 % (35.4-49); HEMOGLOBIN 9.1 GM/dL (11.7-16.9); MCH 25.9 pg (25.7-33.7); MCHC 32.3 g/dl (32.0-35.9); MEAN CELL VOLUME 80.2 fl (80-96); MEAN PLT VOLUME 7.8 fl (7.5-11.1); MONO % 12.7 % (3.8-10.2); PLATELET COUNT 316 10^3/uL (134-434); RBC 3.53 M/mm3 (4.00-5.60); RDW 17.9 % (11.9-15.9); WHITE BLOOD COUNT 8.1 K/mm3 (4.0-10.0)
[2023-11-30 08:46] LABS: CHLORIDE 98 mmol/L (98-107); POTASSIUM 4.2 mmol/L (3.5-5.1); SODIUM 138 mmol/L (136-145)
[2023-11-30 09:06] LABS: ALBUMIN 2.6 g/dl (3.4-5.0)
[2023-11-30 09:07] LABS: ANION GAP 14 mmol/L (4-13); BLOOD UREA NITROGEN 43.2 mg/dL (7-18); CO2 27 mmol/L (21-32); GLUCOSE,RANDOM 81 mg/dL (74-106)
[2023-11-30 09:09] LABS: SGPT/ALT 11 U/L (13-61)
[2023-11-30 09:11] LABS: TOT PROT 8.3 g/dl (6.4-8.2)
[2023-11-30 09:12] LABS: ALK PHOS 59 U/L (45-117)
[2023-11-30 09:13] LABS: SGOT/AST 14 U/L (15-37)
[2023-11-30 09:16] LABS: CREATININE 15.1 mg/dL (0.55-1.3)
[2023-11-30 14:33] VITALS: BMI 35.4
[2023-11-30] MEDS: EPOETIN ALFA-EPBX 10,000 UNIT/ML VIAL SQ ONE (15:18)
[2023-11-30 15:20] VITALS: RESP 18; TEMP 98.2
[2023-11-30 18:40] VITALS: BP 148/101; PULSE 104
== END 2023-11-30 19:18 | disposition home or self-care (01) | DRG 470 ==
LOC: JER 07:39 → JERBED 10:44 → J4S 11-24 08:34 → JERBED 11-24 08:34 → J5S 11-24 16:14 → OBSVTOIN 11-30 09:20 → J5S 11-30 11:07
PROVIDERS: ADMIT Internal Medicine
PROC: 0DB68ZX Excision of Stomach, Via Natural or Artificial Opening Endoscopic, Diagnostic (ICD-10-PCS; 2023-11-30)
PROC: 0DJD8ZZ Inspection of Lower Intestinal Tract, Via Natural or Artificial Opening Endoscopic (ICD-10-PCS; 2023-11-30)
PROC: 5A1D70Z Performance of Urinary Filtration, Intermittent, Less than 6 Hours Per Day (ICD-10-PCS; 2023-11-30)
PROC: 30233N1 Transfusion of Nonautologous Red Blood Cells into Peripheral Vein, Percutaneous Approach (ICD-10-PCS; 2023-11-30)
PROC: 0DB98ZX Excision of Duodenum, Via Natural or Artificial Opening Endoscopic, Diagnostic (ICD-10-PCS; principal; 2023-11-30 10:00)
DX: I12.0 Hypertensive chronic kidney disease with stage 5 chronic kidney disease or end stage renal disease (principal); D63.1 Anemia in chronic kidney disease; N18.6 End stage renal disease; E66.9 Obesity, unspecified; K29.50 Unspecified chronic gastritis without bleeding; K64.8 Other hemorrhoids; R01.1 Cardiac murmur, unspecified; Z99.2 Dependence on renal dialysis; D50.9 Iron deficiency anemia, unspecified; R31.9 Hematuria, unspecified; Z68.35 Body mass index [BMI] 35.0-35.9, adult
CPT/HCPCS: 36415; 36430; 74176-TC; 80048; 80053; 81003; 82272; 82728; 83010; 83540; 83550; 83615; 83735; 84100; 84466; 84484; 85025; 85027; 85045; 85610; 86704; 86803; 86850; 86900; 86901; 86922; 87086; 87340; 87517; 88305-TC; 93005; 93010; 93306-TC; 99285-25; G0378; P9038; P9058; Q5106